=== PATIENT | male | born 1950 | race African-American/Black ===

== ENCOUNTER 2018-08-27 09:34 | Emergency (ER) | payer OTHER ==
[2018-08-27 10:49] LABS: Absolute Lymphocytes (CBC) 1.6 K/uL (0.7-4.9); Absolute Monocytes 0.5 K/uL (0.1-1.3); Absolute Neutrophil 3.7 K/uL (1.8-8.0); Basophils % 0.6 % (0-1.3); Eosinophils % 1.1 % (0-4.4); Hematocrit 36.4 % (39.6-49.0); Lymphocytes % 27.4 % (15.3-44.8); MPV 8.8 fL (7.6-11.3); Monocytes % 8.4 % (3.3-12.3); RBC Red Blood Cell Count 4.24 M/uL (4.33-5.43)
[2018-08-27 10:51] LABS: Protime INR 1.23
--- NOTE | 2018-08-27 10:57 | RAD REPORT ---
EXAM DESCRIPTION: RAD - Chest Single View - 08/27/2018 10:52 am CLINICAL HISTORY: Cough;SOB Chest pain. COMPARISON: No comparisons FINDINGS: Portable technique limits examination quality. Mild interstitial pulmonary edema seen. The heart is mildly enlarged in size with a single lead pacer /defibrillator device present. Sternotomy wires are present. IMPRESSION: Mild CHF versus volume overload pattern.
[2018-08-27 11:34] LABS: Bilirubin Direct 0.2 mg/dL (0-0.2); Bilirubin Total 0.5 mg/dL (0.2-1.0); Magnesium 1.8 mg/dL (1.8-2.4); Potassium 3.8 mmol/L (3.5-5.1); Protein, Total 6.7 g/dL (6.4-8.2); Troponin (Emerg Dept Use Only) 0.04 ng/mL (0.0-0.045)
[2018-08-27] MEDS ORDERED: FUROSEMIDE 40 MG/4 ML VIAL ONE (12:03)
--- NOTE | 2018-08-27 12:57 | ER ---
Nurse's Notes [facility] Name: Shaun Yan Age: 68 yrs Sex: Male : 1950 Arrival Date: 08/27/2018 Time: 09:37 Bed 13 Private MD: None, None Diagnosis: Acute combined systolic (congestive) and diastolic (congestive) heart failure Presentation: 08/27 09:57 Presenting complaint: Patient states: dryc, hacking cough and shortness of breath x 2 ss weeks. Denies fever. Transition of care: patient was not received from another setting of care. Onset of symptoms was August 13, 2018. Risk Assessment: Do you want to hurt yourself or someone else? Patient reports no desire to harm self or others. Initial Sepsis Screen: Does the patient meet any 2 criteria? No. Patient's initial sepsis screen is negative. Does the patient have a suspected source of infection? No. Patient's initial sepsis screen is negative. Care prior to arrival: None. 09:57 Method Of Arrival: Ambulatory ss 09:57 Acuity: CUATE 3 ss Triage Assessment: 10:04 General: Appears in no apparent distress. Behavior is calm. Respiratory: Onset: The tw2 symptoms/episode began/occurred 2 weeks, the patient has mild shortness of breath. Respiratory: Airway is patent. Historical: - Allergies: 10:01 No Known Allergies; ss - PMHx: 10:01 CAD; COPD; Hypertension; PE; ss - PSHx: 10:01 L knee repair; quadruple bypass; ss - Immunization history:: Adult Immunizations up to date. - Social history:: Smoking status: Patient/guardian denies using tobacco. - Ebola Screening: : Patient denies exposure to infectious person Patient denies travel to an Ebola-affected area in the 21 days before illness onset. Screenin:02 Abuse screen: Denies threats or abuse. Nutritional screening: No deficits noted. tw2 Tuberculosis screening: No symptoms or risk factors identified. Fall Risk Secondary diagnosis (15 points) impaired mobility. Assessment: 10:03 Pain: Denies pain. Neuro: Level of Consciousness is awake, alert, obeys commands, tw2 Oriented to person, place, time, situation. Cardiovascular: Rhythm is regular. Cardiovascular: Heart tones S1 S2 Patient's skin is warm and dry. Respiratory: Reports cough that is non-productive, dry, Airway is patent Respiratory effort is even, unlabored, Respiratory pattern is regular, symmetrical, Breath sounds are clear. GI: No signs and/or symptoms were reported involving the gastrointestinal system. : No signs and/or symptoms were reported regarding the genitourinary system. EENT: Reports nasal congestion nasal discharge. Derm: No signs and/or symptoms reported regarding the dermatologic system. Musculoskeletal: Range of motion: intact in all extremities. 10:30 Reassessment: Patient appears in no apparent distress at this time. No changes from tw2 previously documented assessment. Patient and/or family updated on plan of care and expected duration. Pain level reassessed. Patient is alert, oriented x 3, equal unlabored respirations, skin warm/dry/pink. 11:49 Reassessment: Patient appears in no apparent distress at this time. No changes from tw2 previously documented assessment. Patient and/or family updated on plan of care and expected duration. Pain level reassessed. Patient is alert, oriented x 3, equal unlabored respirations, skin warm/dry/pink. 13:15 Reassessment: Patient appears in no apparent distress at this time. No changes from tw2 previously documented assessment. Patient and/or family updated on plan of care and expected duration. Pain level reassessed. Patient is alert, oriented x 3, equal unlabored respirations, skin warm/dry/pink. Vital Signs: 10:01 BP 148 / 105; Pulse 79; Resp 22; Temp 97.4(TE); Pulse Ox 100% on R/A; Weight 84.37 kg; Height 73 in. (185.42 cm); Pain 0/10; 10:23 BP 135 / 106; Pulse 75; Resp 18; Temp 98.9(O); Pulse Ox 100% on R/A; Pain 0/10; tw2 11:49 BP 135 / 107; Pulse 75; Resp 17; Pulse Ox 99% on R/A; tw2 12:30 BP 132 / 104; Pulse 76; Resp 17; Pulse Ox 100% on R/A; tw2 13:16 BP 125 / 92; Pulse 74; Resp 17; Pulse Ox 98% on R/A; tw2 10:01 Body Mass Index 24.54 (84.37 kg, 185.42 cm) ED Course: 09:37 Patient arrived in ED. dl4 09:37 None, None is Private Physician. dl4 09:40 Bed in low position. Call light in reach. hay stacker on. Pulse ox on. NIBP on. tw2 09:51 Susan Longoria, RN is Primary Nurse. tw2 09:57 Curtis Da Silva NP is PHCP. pm1 09:57 Gutierrez Sun MD is Attending Physician. pm1 09:59 Triage completed. ss 10:02 Arm band placed on. tw2 10:33 Inserted saline lock: 20 gauge in right forearm, using aseptic technique. pc1 10:34 EKG done, by land survey technician. reviewed by Curtis Da Silva NP. at1 10:51 X-ray completed. Portable x-ray completed in exam room. Patient tolerated procedure jb2 well. 10:52 XRAY Chest (1 view) In Process Unspecified. EDMS 13:15 No provider procedures requiring assistance completed. IV discontinued, intact, tw2 bleeding controlled, No redness/swelling at site. Pressure dressing applied. Administered Medications: 11:54 Drug: Lasix 40 mg Route: IVP; Site: right forearm; tw2 13:16 Follow up: Response: No adverse reaction tw2 13:11 Drug: Tussionex Pennkinetic ER 5 ml Route: PO; tw2 13:16 Follow up: Response: No adverse reaction tw2 Outcome: 12:56 Discharge ordered by . pm1 13:15 Discharged to home ambulatory, with family. tw2 13:15 Condition: stable 13:15 Discharge instructions given to patient, family, Instructed on discharge instructions, follow up and referral plans. medication usage, Demonstrated understanding of instructions, follow-up care, medications, Prescriptions given X 1. 13:17 Patient left the ED. tw2 Signatures: Dispatcher [employer] EDME Franck Yeung jb2 Shelbie Cross RN RN ss Domenica Alegria, store protection specialist EKG Tat1 Curtis Da Silva, LANA PARTS CONTROL CLERK pm1 Susan Longoria RN RN tw2 Popeye Jackson dl4 Curtis Burns pc1 Corrections: (The following items were deleted from the chart) 10:23 10:03 EENT: No signs and/or symptoms were reported regarding the EENT system. tw2 tw2
--- NOTE | 2018-08-27 12:57 | EDPHYS ---
Physician Documentation [facility] Name: Shaun Yan Age: 68 yrs Sex: Male : 1950 Arrival Date: 08/27/2018 Time: 09:37 Bed 13 Private MD: None, None ED Physician Gutierrez Sun HPI: 08/27 10:30 This 68 yrs old Black Male presents to ER via Ambulatory with complaints of Cough, pm1 Breathing Difficulty. 10:30 The patient or guardian reports cough, with no sputum. Onset: The symptoms/episode pm1 began/occurred 2 week(s) ago. Severity of symptoms: in the emergency department the symptoms are unchanged. Modifying factors: The symptoms are alleviated by nothing, the symptoms are aggravated by nothing. Associated signs and symptoms: Pertinent positives: rhinorrhea, sinus congestion and post nasal drainage , Pertinent negatives: chest pain, diarrhea, fever, vomiting. The patient has not recently seen a physician, and does not have an established primary care provider, just moved to [facility], plans to see Dr. Baeza next week. Historical: - Allergies: 10:01 No Known Allergies; ss - PMHx: 10:01 CAD; COPD; Hypertension; PE; ss - PSHx: 10:01 L knee repair; quadruple bypass; ss - Immunization history:: Adult Immunizations up to date. - Social history:: Smoking status: Patient/guardian denies using tobacco. - Ebola Screening: : Patient denies exposure to infectious person Patient denies travel to an Ebola-affected area in the 21 days before illness onset. ROS: 10:30 Constitutional: Negative for fever, chills, and weight loss, Eyes: Negative for injury, pm1 pain, redness, and discharge, ENT: Negative for injury, pain, and discharge, Neck: Negative for injury, pain, and swelling, Cardiovascular: Negative for chest pain, palpitations, and edema, Abdomen/GI: Negative for abdominal pain, nausea, vomiting, diarrhea, and constipation. 10:30 Back: Negative for injury and pain, : Negative for injury, bleeding, discharge, and swelling, MS/Extremity: Negative for injury and deformity, Skin: Negative for injury, rash, and discoloration, Neuro: Negative for headache, weakness, numbness, tingling, and seizure. 10:30 Respiratory: Positive for cough, with no reported sputum, shortness of breath, Negative for wheezing. Exam: 10:30 Constitutional: This is a well developed, well nourished patient who is awake, alert, pm1 and in no acute distress. Head/Face: Normocephalic, atraumatic. Eyes: Pupils equal round and reactive to light, extra-ocular motions intact. Lids and lashes normal. Conjunctiva and sclera are non-icteric and not injected. Cornea within normal limits. Periorbital areas with no swelling, redness, or edema. ENT: Nares patent. No nasal discharge, no septal abnormalities noted. Tympanic membranes are normal and external auditory canals are clear. Oropharynx with no redness, swelling, or masses, exudates, or evidence of obstruction, uvula midline. Mucous membranes moist. Neck: Trachea midline, no thyromegaly or masses palpated, and no cervical lymphadenopathy. Supple, full range of motion without nuchal rigidity, or vertebral point tenderness. No Meningismus. Chest/axilla: Normal chest wall appearance and motion. Nontender with no deformity. No lesions are appreciated. Cardiovascular: Regular rate and rhythm with a normal S1 and S2. No gallops, murmurs, or rubs. Normal PMI, no JVD. No pulse deficits. Respiratory: Lungs have equal breath sounds bilaterally, clear to auscultation and percussion. No rales, rhonchi or wheezes noted. No increased work of breathing, no retractions or nasal flaring. Abdomen/GI: Soft, non-tender, with normal bowel sounds. No distension or tympany. No guarding or rebound. No evidence of tenderness throughout. Back: No spinal tenderness. No costovertebral tenderness. Full range of motion. Skin: Warm, dry with normal turgor. Normal color with no rashes, no lesions, and no evidence of cellulitis. MS/ Extremity: Pulses equal, no cyanosis. Neurovascular intact. Full, normal range of motion. Neuro: Awake and alert, GCS 15, oriented to person, place, time, and situation. Cranial nerves II-XII grossly intact. Motor strength 5/5 in all extremities. Sensory grossly intact. Cerebellar exam normal. Normal gait. Vital Signs: 10:01 BP 148 / 105; Pulse 79; Resp 22; Temp 97.4(TE); Pulse Ox 100% on R/A; Weight 84.37 kg; ss Height 73 in. (185.42 cm); Pain 0/10; 10:23 BP 135 / 106; Pulse 75; Resp 18; Temp 98.9(O); Pulse Ox 100% on R/A; Pain 0/10; tw2 11:49 BP 135 / 107; Pulse 75; Resp 17; Pulse Ox 99% on R/A; tw2 12:30 BP 132 / 104; Pulse 76; Resp 17; Pulse Ox 100% on R/A; tw2 13:16 BP 125 / 92; Pulse 74; Resp 17; Pulse Ox 98% on R/A; tw2 10:01 Body Mass Index 24.54 (84.37 kg, 185.42 cm) ss MDM: 09:59 Patient medically screened. pm1 12:48 Data reviewed: vital signs. Data interpreted: Pulse oximetry: on room air is 99 %. pm1 Interpretation: normal. Counseling: I had a detailed discussion with the patient and/or guardian regarding: the historical points, exam findings, and any diagnostic results supporting the discharge/admit diagnosis, lab results, radiology results, the need for outpatient follow up, to return to the emergency department if symptoms worsen or persist or if there are any questions or concerns that arise at home. 13:00 ED course: Patient without any shortness of breath after Lasix given in the ER and pm1 three times urinating. Patient instructed to double his Lasix for the next 2 days. 08/27 10:19 Order name: Basic Metabolic Panel; Complete Time: 11:36 pm1 08/27 10:19 Order name: CBC with Diff; Complete Time: 11:36 pm1 08/27 10:19 Order name: LFT's; Complete Time: 11:36 pm1 08/27 10:19 Order name: Magnesium; Complete Time: 11:36 pm1 08/27 10:19 Order name: NT PRO-BNP; Complete Time: 11:36 pm1 08/27 10:19 Order name: PT-INR; Complete Time: 11:36 pm1 08/27 10:19 Order name: Troponin (emerg Dept Use Only); Complete Time: 11:36 pm1 08/27 10:19 Order name: XRAY Chest (1 view); Complete Time: 11:36 pm1 08/27 10:19 Order name: EKG; Complete Time: 10:20 pm1 08/27 10:19 Order name: Cardiac monitoring; Complete Time: 10:24 pm1 08/27 10:19 Order name: EKG - Nurse/Tech; Complete Time: 10:24 pm1 08/27 10:19 Order name: Flu; Complete Time: 11:36 pm1 08/27 10:19 Order name: IV Saline Lock; Complete Time: 10:41 pm1 08/27 10:19 Order name: Labs collected and sent; Complete Time: 10:41 pm1 08/27 10:19 Order name: O2 Per Protocol; Complete Time: 10:24 pm1 08/27 10:19 Order name: O2 Sat Monitoring; Complete Time: 10:24 pm1 Administered Medications: 11:54 Drug: Lasix 40 mg Route: IVP; Site: right forearm; tw2 13:16 Follow up: Response: No adverse reaction tw2 13:11 Drug: Tussionex Pennkinetic ER 5 ml Route: PO; tw2 13:16 Follow up: Response: No adverse reaction tw2 Disposition: 08/28 07:14 Co-signature as Attending Physician, Gutierrez Sun MD I agree with the assessment and kdr plan of care. Disposition: 08/27/18 12:56 Discharged to Home. Impression: Acute combined systolic (congestive) and diastolic (congestive) heart failure. - Condition is Stable. - Discharge Instructions: Heart Failure, Upper Respiratory Infection, Adult. - Prescriptions for Guaifenesin AC 10- 100 mg/5 mL Oral Liquid - take 10 milliliter by ORAL route every 4 hours As needed; 240 milliliter. - Medication Reconciliation Form, Thank You Letter, Antibiotic Education, Prescription Opioid Use form. - Follow up: Emergency Department; When: As needed; Reason: Worsening of condition. Follow up: Private Physician; When: 2 - 3 days; Reason: Recheck today's complaints, Continuance of care, Re-evaluation by your physician. - Problem is new. - Symptoms have improved. - Notes: Double your dose of Lasix for the next 2 days. Take Lasix 40mg in the AM and take Lasix 40mg at night for the next two days Signatures: Dispatcher [employer] [facility] Gutierrez Sun MD MD [facility] Shelbie Cross RN RN Curtis Da Silva, LANA RETROFIT INSTALLER pm1 Longoria, Susan, RN RN tw2 Corrections: (The following items were deleted from the chart) 08/27 13:17 12:56 08/27/2018 12:56 Discharged to Home. Impression: Acute combined systolic tw2 (congestive) and diastolic (congestive) heart failure. Condition is Stable. Forms are Medication Reconciliation Form, Thank You Letter, Antibiotic Education, Prescription Opioid Use. Follow up: Emergency Department; When: As needed; Reason: Worsening of condition. Follow up: Private Physician; When: 2 - 3 days; Reason: Recheck today's complaints, Continuance of care, Re-evaluation by your physician. Problem is new. Symptoms have improved. pm1
[2018-08-27] MEDS ORDERED: HYDROCODONE/CHLORPHEN 5 ML/OSYR ONE (13:22)
== END 2018-08-27 13:17 | disposition home or self-care (01) ==
LOC: ER 09:34
DX: I50.41 Acute combined systolic (congestive) and diastolic (congestive) heart failure (principal); I25.10 Atherosclerotic heart disease of native coronary artery without angina pectoris; I10 Essential (primary) hypertension; J44.9 Chronic obstructive pulmonary disease, unspecified; Z86.711 Personal history of pulmonary embolism
CPT/HCPCS: 93005; 85025; 80048; 36415; 83735; 85610; 80076; 84484; 83880; 87804 ×2; 71045; 96374; 99284; J1940

== ENCOUNTER 2019-03-08 16:41 | Emergency (ER) | payer OTHER ==
[2019-03-08 18:57] LABS: Absolute Lymphocytes (CBC) 1.5 K/uL (0.7-4.9); Basophils % 0.6 % (0-1.3); Hematocrit 36.4 % (39.6-49.0); RBC Red Blood Cell Count 4.11 M/uL (4.33-5.43)
[2019-03-08 19:04] LABS: Protime INR 1.19
[2019-03-08 19:17] LABS: Potassium 3.9 mmol/L (3.5-5.1)
[2019-03-08 19:18] LABS: Albumin 3.4 g/dL (3.4-5.0); Bilirubin Direct 0.3 mg/dL (0-0.2); Magnesium 1.6 mg/dL (1.8-2.4); Protein, Total 6.6 g/dL (6.4-8.2); Troponin (Emerg Dept Use Only) 0.03 ng/mL (0.0-0.045)
[2019-03-08] MEDS ORDERED: NA CHLORIDE 0.9% 1,000 ML ONE (19:32)
--- NOTE | 2019-03-08 19:52 | RAD REPORT ---
EXAM DESCRIPTION: RAD - Chest Single View - 03/08/2019 7:39 pm CLINICAL HISTORY: Cough and congestion, coronary artery disease, COPD and hypertension COMPARISON: August 2018 TECHNIQUE: AP portable chest image was obtained 1929 hours . FINDINGS: No peripheral mass or consolidation. Cardiomegaly is present similar to comparison. Defibr illator is in place. Upper lobe vasculature is mildly prominent. No measurable pleural effusion and n o pneumothorax. No acute bony abnormality seen. No acute aortic findings suspected. IMPRESSION: No acute lung parenchymal process seen. Cardiomegaly similar to comparison. No significant failure or volume overload findings.
--- NOTE | 2019-03-08 20:43 | RAD REPORT ---
EXAM DESCRIPTION: CT - Chest For Pe Angio - 03/08/2019 8:31 pm CLINICAL HISTORY: COUGH hemoptysis, COPD, hypertension, history of PE COMPARISON: Chest films same date TECHNIQUE: Dynamically enhanced 3 mm thick images of the chest were obtained during administration o f approximately 150mL Isovue 370 IV contrast. Coronal and oblique MIP reconstruction images were gene rated and reviewed. Exam utilizes a protocol to evaluate the pulmonary arterial tree. All CT scans are performed using dose optimization technique as appropriate and may include automated exposure control or mA/KV adjustment according to patient size. FINDINGS: No pulmonary emboli are identified. The aorta as imaged shows no acute or suspicious finding. Cardiomegaly is present. Coronary artery ca lcifications are present. No pericardial thickening or effusion. Interstitial markings are prominent but not significantly different from prior imaging. Small bilater al pleural effusions are present. No pneumothorax or pleural based mass. No mediastinal or hilar suspicious masses. No chest wall masses or abnormal axillary lymphadenopathy. IMPRESSION: No pulmonary emboli identified. Cardiomegaly without pericardial thickening or effusion. Small bilateral pleural effusions.
--- NOTE | 2019-03-08 21:14 | ER ---
Nurse's Notes [facility] Name: Shaun Yan Age: 68 yrs Sex: Male : 1950 Arrival Date: 03/08/2019 Time: 16:47 Bed 24 Private MD: Diagnosis: Acute bronchitis Presentation: 03/08 17:09 Presenting complaint: Patient states: I have had a cough for about three days and I la1 started having some blood in my sputum, I have had a PE in the past so I am worried about that. Transition of care: patient was not received from another setting of care. Onset of symptoms was March 08, 2019. Risk Assessment: Do you want to hurt yourself or someone else? Patient reports no desire to harm self or others. Initial Sepsis Screen: Does the patient meet any 2 criteria? No. Patient's initial sepsis screen is negative. Does the patient have a suspected source of infection? No. Patient's initial sepsis screen is negative. Care prior to arrival: None. 17:09 Method Of Arrival: Ambulatory la1 17:09 Acuity: CUATE 3 la1 Historical: - Allergies: 17:10 No Known Allergies; la1 - PMHx: 17:10 CAD; COPD; Hypertension; PE; la1 - PSHx: 17:10 CABG; pacemaker/defib; la1 - Immunization history:: Adult Immunizations up to date. - Social history:: Smoking status: Patient uses tobacco products, smokes one-half pack cigarettes per day, Patient/guardian denies using alcohol, street drugs, The patient lives alone. - Ebola Screening: : No symptoms or risks identified at this time. - Family history:: not pertinent. - Hospitalizations: : No recent hospitalization is reported. Screenin:58 Abuse screen: Denies threats or abuse. Denies injuries from another. Nutritional rv screening: No deficits noted. Tuberculosis screening: No symptoms or risk factors identified. Fall Risk None identified. Assessment: 18:57 General: Appears in no apparent distress. comfortable, Behavior is calm, cooperative. rv Pain: Denies pain. Neuro: Level of Consciousness is awake, alert, obeys commands, Oriented to person, place, time, situation. Cardiovascular: Patient's skin is warm and dry. Respiratory: Airway is patent Parent/caregiver reports the patient having blood in sputum. GI: No signs and/or symptoms were reported involving the gastrointestinal system. : No signs and/or symptoms were reported regarding the genitourinary system. EENT: No signs and/or symptoms were reported regarding the EENT system. Derm: Skin is intact. Musculoskeletal: No signs and/or symptoms reported regarding the musculoskeletal system. 21:58 Reassessment: Patient appears in no apparent distress at this time. Patient and/or cc3 family updated on plan of care and expected duration. Pain level reassessed. Patient is alert, oriented x 3, equal unlabored respirations, skin warm/dry/pink. Dr. Pacheco discharged the patient home with prescriptions given. IV cannula removed and patient left ER vitally stable and ambulatory. No valuables left in the patient's room. Patient denies pain at this time. Patient states feeling better. Patient states symptoms have improved. Vital Signs: 17:10 BP 140 / 94; Pulse 71; Resp 16; Temp 98.6; Pulse Ox 98% on R/A; Weight 90.26 kg; Height la1 6 ft. 1 in. (185.42 cm); 18:00 BP 149 / 102; Pulse 73; Resp 19; Pulse Ox 100% on R/A; rv 19:00 Pulse 68; Resp 18; Pulse Ox 99% ; rv 21:40 BP 139 / 93; Pulse 75; Resp 17 S; Pulse Ox 98% on R/A; Pain 0/10; cc3 17:10 Body Mass Index 26.25 (90.26 kg, 185.42 cm) la1 ED Course: 16:47 Patient arrived in ED. am2 17:10 Triage completed. la1 17:10 Arm band placed on right wrist. la1 18:15 Brent Pacheco MD is Attending Physician. ma2 18:24 Tim Witt RN is Primary Nurse. rv 18:29 Radiology exam delayed due to lab results not completed at this time. (BUN/Creatinine). sj 18:35 Inserted saline lock: 20 gauge in right antecubital area, using aseptic technique. rv Blood collected. 18:58 Patient has correct armband on for positive identification. Bed in low position. Call rv light in reach. Side rails up X 1. campus monitor on. Pulse ox on. NIBP on. 19:09 Radiology exam delayed due to lab results not completed at this time. (BUN/Creatinine). vm2 19:23 Radiology exam delayed due to Per Dr. Pacheco to wait on [employer] and will let us know. vm2 19:38 CT Chest For PE Angio In Process Unspecified. EDMS 19:39 Chest Single View XRAY In Process Unspecified. EDMS 22:00 No provider procedures requiring assistance completed. IV discontinued, intact, cc3 bleeding controlled, No redness/swelling at site. Pressure dressing applied. Administered Medications: 19:40 Drug: NS 0.9% 1000 ml Route: IV; Rate: 1 bolus; Site: left antecubital; rv 21:30 Follow up: Response: No adverse reaction; IV Status: Completed infusion; IV Intake: cc3 1000ml Intake: 21:30 IV: 1000ml; Total: 1000ml. cc3 Outcome: 21:13 Discharge ordered by . vt2 21:58 Patient left the ED. cc3 21:58 Discharged to home ambulatory, with friend. cc3 21:58 Condition: stable 21:58 Discharge instructions given to patient, Instructed on discharge instructions, follow up and referral plans. medication usage, Demonstrated understanding of instructions, follow-up care, medications, Prescriptions given X 4. Signatures: Dispatcher [employer] [place] Yessy James Lee, RN RN Domenica Chaney [place] 2 Brent Pacheco MD MD vt2 Tim Witt RN RN Tania Wiley cc3
--- NOTE | 2019-03-08 21:14 | EDPHYS ---
Physician Documentation [facility] Name: Shaun Yan Age: 68 yrs Sex: Male : 1950 Arrival Date: 03/08/2019 Time: 16:47 Bed 24 Private MD: ED Physician Brent Pacheco HPI: 03/08 18:53 This 68 yrs old Black Male presents to ER via Ambulatory with complaints of Cough - ma2 blood. 18:53 Onset: The symptoms/episode began/occurred gradually, 1 day(s) ago. Severity of ma2 symptoms: At their worst the symptoms were moderate, in the emergency department the symptoms are unchanged. Associated signs and symptoms: Pertinent positives: Pertinent negatives: chest pain, diarrhea, fever, rhinorrhea, sore throat, vomiting. The patient has not experienced similar symptoms in the past. Historical: - Allergies: 17:10 No Known Allergies; la1 - PMHx: 17:10 CAD; COPD; Hypertension; PE; la1 - PSHx: 17:10 CABG; pacemaker/defib; la1 - Immunization history:: Adult Immunizations up to date. - Social history:: Smoking status: Patient uses tobacco products, smokes one-half pack cigarettes per day, Patient/guardian denies using alcohol, street drugs, The patient lives alone. - Ebola Screening: : No symptoms or risks identified at this time. - Family history:: not pertinent. - Hospitalizations: : No recent hospitalization is reported. ROS: 18:53 Constitutional: Negative for fever, chills, and weight loss. ma2 18:53 All other systems are negative. Exam: 18:53 Constitutional: This is a well developed, well nourished patient who is awake, alert, ma2 and in no acute distress. ENT: Nares patent. No nasal discharge, no septal abnormalities noted. Tympanic membranes are normal and external auditory canals are clear. Oropharynx with no redness, swelling, or masses, exudates, or evidence of obstruction, uvula midline. Mucous membranes moist. Neck: Trachea midline, no thyromegaly or masses palpated, and no cervical lymphadenopathy. Supple, full range of motion without nuchal rigidity, or vertebral point tenderness. No Meningismus. Chest/axilla: Normal chest wall appearance and motion. Nontender with no deformity. No lesions are appreciated. Cardiovascular: Regular rate and rhythm with a normal S1 and S2. No gallops, murmurs, or rubs. Normal PMI, no JVD. No pulse deficits. Respiratory: Lungs have equal breath sounds bilaterally, clear to auscultation and percussion. No rales, rhonchi or wheezes noted. No increased work of breathing, no retractions or nasal flaring. Abdomen/GI: Soft, non-tender, with normal bowel sounds. No distension or tympany. No guarding or rebound. No evidence of tenderness throughout. Vital Signs: 17:10 BP 140 / 94; Pulse 71; Resp 16; Temp 98.6; Pulse Ox 98% on R/A; Weight 90.26 kg; Height la1 6 ft. 1 in. (185.42 cm); 18:00 BP 149 / 102; Pulse 73; Resp 19; Pulse Ox 100% on R/A; rv 19:00 Pulse 68; Resp 18; Pulse Ox 99% ; rv 21:40 BP 139 / 93; Pulse 75; Resp 17 S; Pulse Ox 98% on R/A; Pain 0/10; cc3 17:10 Body Mass Index 26.25 (90.26 kg, 185.42 cm) la1 MDM: 18:15 Patient medically screened. ma2 18:53 Differential Diagnosis: Bronchitis Upper Respiratory Infection Pharyngitis Viral ma2 Syndrome Pneumonia. Data reviewed: vital signs, nurses notes. Counseling: I had a detailed discussion with the patient and/or guardian regarding: the historical points, exam findings, and any diagnostic results supporting the discharge/admit diagnosis, the presence of at least one elevated blood pressure reading (>120/80) during this emergency department visit. 21:08 Counseling: I had a detailed discussion with the patient and/or guardian regarding: ma2 radiology results, the need for outpatient follow up. Response to treatment: the patient's symptoms have markedly improved after treatment. 03/08 18:27 Order name: Basic Metabolic Panel; Complete Time: 19:22 ma2 03/08 18:27 Order name: CBC with Diff ma2 03/08 18: Order name: LFT's; Complete Time: 19:22 ma2 03/08 18:27 Order name: Magnesium; Complete Time: 19:22 ma2 03/08 18:27 Order name: NT PRO-BNP; Complete Time: 19:22 ma2 30 18:27 Order name: PT-INR; Complete Time: 19:22 03/08 18:27 Order name: Troponin (emerg Dept Use Only); Complete Time: 19:22 03/08 18:27 Order name: EKG; Complete Time: 18:28 03/08 18:27 Order name: Cardiac monitoring; Complete Time: 18:56 03/08 18:27 Order name: EKG - Nurse/Tech; Complete Time: 21:51 03/08 18:27 Order name: CT Chest For PE Angio; Complete Time: 20:52 03/08 19:23 Order name: D-Dimer; Complete Time: 20:07 03/08 19:23 Order name: Chest Single View XRAY; Complete Time: 20:07 03/08 18:27 Order name: IV Saline Lock; Complete Time: 18:57 ma03/08 18:27 Order name: Labs collected and sent; Complete Time: 18:57 03/08 18:27 Order name: O2 Per Protocol; Complete Time: 18:57 03/08 18:27 Order name: O2 Sat Monitoring; Complete Time: 18:57 ma2 Administered Medications: 19:40 Drug: NS 0.9% 1000 ml Route: IV; Rate: 1 bolus; Site: left antecubital; rv 21:30 Follow up: Response: No adverse reaction; IV Status: Completed infusion; IV Intake: cc3 1000ml Disposition: 03/08/19 21:13 Discharged to Home. Impression: Acute bronchitis. - Condition is Stable. - Discharge Instructions: Acute Bronchitis, Adult. - Prescriptions for Tylenol- Codeine #3 300-30 mg Oral Tablet - take 2 tablet by ORAL route every 6 hours As needed; 30 tablet. Tessalon Perles 100 mg Oral Capsule - take 1 capsule by ORAL route every 8 hours As needed; 15 capsule. Zithromax Z- Reyes 250 mg Oral Tablet - take 1 tablet by ORAL route as directed for 5 days Day 1 - take two (2) tablets one time. Day 2, 3, 4 , 5 take one (1) tablet once daily.; 6 tablet. Medrol (Reyes) 4 mg Oral Tablets, Dose Pack - take 1 tablet by ORAL route as directed - follow package instructions; 1 packet. - Medication Reconciliation Form, Thank You Letter, Antibiotic Education, Prescription Opioid Use form. - Follow up: Private Physician; When: Tomorrow; Reason: Continuance of care. Signatures: Dispatcher [employer] Isaias Moon RN RN los1 Brent Pacheco MD MD ma2 Tim Witt RN RN Tania Wiley cc3 Corrections: (The following items were deleted from the chart) 21:58 21:13 03/08/2019 21:13 Discharged to Home. Impression: Acute bronchitis. Condition is cc3 Stable. Forms are Medication Reconciliation Form, Thank You Letter, Antibiotic Education, Prescription Opioid Use. Follow up: Private Physician; When: Tomorrow; Reason: Continuance of care. ma2
[2019-03-08 23:32] VITALS: TEMP 98.6
[2019-03-08 23:33] VITALS: BP 149/102
[2019-03-08 23:34] VITALS: O2SAT 99
--- NOTE | 2019-03-09 07:24 | EKG ---
Test Date: 2019-03-08 Test Time: 19:19:47 Lint Cleaner: RV MEASUREMENT RESULTS: Intervals: Rate: 67 [place]: 186 QRSD: 108 QT: 444 QTc: 469 [place]: P: 87 [place]: 186 QRS: 75 T: 245 INTERPRETIVE STATEMENTS: Sinus rhythm with sinus arrhythmia with occasional premature ventricular complexes Left ventricular hypertrophy with repolarization abnormality Abnormal ECG Compared to ECG 08/27/2018 10:30:01 no significant change from previous ECG Electronically Signed On 03-09-19 07:24:18 CDT by Armaan Brian
== END 2019-03-08 21:58 | disposition home or self-care (01) ==
LOC: ER 16:41
DX: J20.9 Acute bronchitis, unspecified (principal); F17.210 Nicotine dependence, cigarettes, uncomplicated
CPT/HCPCS: 96361; 93005; 85025; 80048; 36415; 83735; 85610; 85379; 80076; 84484; 83880; 71275; 71045; 96360; 99284; Q9967; J7030

== ENCOUNTER 2019-05-26 13:42 | Observation (INO) | payer OTHER ==
[2019-05-26 15:10] LABS: Protime INR 1.26
[2019-05-26 15:11] LABS: Absolute Lymphocytes (CBC) 1.5 K/uL (0.7-4.9); Basophils % 0.3 % (0-1.3); Lymphocytes % 22.2 % (15.3-44.8); MPV 9.7 fL (7.6-11.3); RBC Red Blood Cell Count 4.29 M/uL (4.33-5.43)
[2019-05-26 15:28] LABS: Magnesium 1.7 mg/dL (1.8-2.4); Potassium 3.4 mmol/L (3.5-5.1); Troponin (Emerg Dept Use Only) 0.04 ng/mL (0.0-0.045)
[2019-05-26] MEDS ORDERED: ALBUTEROL 2.5 MG/3 ML NEB SOL ONE (15:57)
[2019-05-26] MEDS ORDERED: IPRATROPIUM BROM 0.5MG/2.5ML ONE (15:58)
--- NOTE | 2019-05-26 16:07 | RAD REPORT ---
EXAM DESCRIPTION: RAD - Chest Pa And Lat (2 Views) - 05/26/2019 3:02 pm CLINICAL HISTORY: DYSPNEA COMPARISON: March 08 TECHNIQUE: PA and lateral views of the chest were obtained. FINDINGS: The lungs are normal volume. No peripheral mass or consolidation. Cardiomegaly and vascula r engorgement are again noted. Defibrillator is in place. Interstitial pattern does appear increased slightly from the comparison. Trachea is midline. No pleural effusion or pneumothorax seen. No acu te bony finding noted. No aortic abnormality. IMPRESSION: Slight increase in interstitial opacification throughout the lung gentile. Finding consistent with a mild interstitial edema or infiltrate superimposed on chronic disease. Cardiomegaly similar to comparison.
--- NOTE | 2019-05-26 16:19 | EKG ---
Test Date: 2019-05-26 Test Time: 14:34:43 Art Historian: BRITTNEY MEASUREMENT RESULTS: Intervals: Rate: 64 [place]: 170 QRSD: 106 QT: 470 QTc: 484 [place]: P: 99 [place]: 170 QRS: 71 T: -49 INTERPRETIVE STATEMENTS: Sinus rhythm with premature atrial complexes Nonspecific ST and T wave abnormality Prolonged QT Abnormal ECG Compared to ECG 03/08/2019 19:19:47 ST (T wave) deviation now present Prolonged QT interval now present Ventricular premature complex(es) no longer present Electronically Signed On 05-26-19 16:18:51 CROP ADJUSTER by Armaan Brian
--- NOTE | 2019-05-26 17:10 | EDPHYS ---
Physician Documentation [facility] Name: Shaun Yan Age: 68 yrs Sex: Male : 1950 Arrival Date: 05/26/2019 Time: 13:43 Bed 19 Private MD: ED Physician Gutierrez Sun HPI: 05/26 14:48 This 68 yrs old Black Male presents to ER via Ambulatory with complaints of Shortness kb Of Breath. 14:48 The patient has shortness of breath at rest. The patient has not experienced similar kb symptoms in the past. The patient has not recently seen a physician. 14:50 Onset: The symptoms/episode began/occurred 2 week(s) ago. Duration: The symptoms are kb continuous. The patient's shortness of breath is aggravated by exertion, is alleviated by nothing. Associated signs and symptoms: The patient has no apparent associated signs or symptoms. Severity of symptoms: At their worst the symptoms were moderate in the emergency department the symptoms are unchanged. Shortness of breath for 2 weeks that gets worse on exertion or when laying on a certain side. Denies chest pain. . Historical: - Allergies: 13:53 No Known Allergies; bp - Home Meds: 14:07 aspirin 81 mg Oral chew 1 tab once daily [Active]; Protonix 40 mg Oral TbEC 1 tab once bp daily [Active]; carvedilol 25 mg oral tab 1 tab 2 times per day [Active]; Lasix 20 mg Oral tab 1 tab once daily [Active]; cilostazol 100 mg oral tab 1 tab 2 times per day [Active]; enalapril maleate 10 mg Oral tab 1 tab once daily [Active]; clopidogrel 75 mg oral tab 1 tab once daily [Active]; atorvastatin 40 mg oral tab 1 tab once daily [Active]; 14:12 nitroglycerin 0.4 mg SL subl 1 tab every 5 minutes [Active]; bp - PMHx: 13:53 CAD; COPD; Hypertension; PE; bp - PSHx: 13:53 Heart stents; bp - Immunization history:: Adult Immunizations up to date. - Social history:: Smoking status: unknown. - Ebola Screening: : No symptoms or risks identified at this time. ROS: 14:51 Constitutional: Negative for fever, chills, and weight loss, ENT: Negative for injury, kb pain, and discharge, Neck: Negative for injury, pain, and swelling, Cardiovascular: Negative for chest pain, palpitations, and edema, Abdomen/GI: Negative for abdominal pain, nausea, vomiting, diarrhea, and constipation, Back: Negative for injury and pain, MS/Extremity: Negative for injury and deformity, Skin: Negative for injury, rash, and discoloration, Neuro: Negative for headache, weakness, numbness, tingling, and seizure. 14:51 Respiratory: Positive for shortness of breath. Exam: 14:51 Constitutional: This is a well developed, well nourished patient who is awake, alert, kb and in no acute distress. Head/Face: Normocephalic, atraumatic. Neck: Trachea midline, no thyromegaly or masses palpated, and no cervical lymphadenopathy. Supple, full range of motion without nuchal rigidity, or vertebral point tenderness. No Meningismus. Chest/axilla: Normal chest wall appearance and motion. Nontender with no deformity. No lesions are appreciated. Cardiovascular: Regular rate and rhythm with a normal S1 and S2. No gallops, murmurs, or rubs. Normal PMI, no JVD. No pulse deficits. Respiratory: Lungs have equal breath sounds bilaterally, clear to auscultation and percussion. No rales, rhonchi or wheezes noted. No increased work of breathing, no retractions or nasal flaring. Abdomen/GI: Soft, non-tender, with normal bowel sounds. No distension or tympany. No guarding or rebound. No evidence of tenderness throughout. Back: No spinal tenderness. No costovertebral tenderness. Full range of motion. Skin: Warm, dry with normal turgor. Normal color with no rashes, no lesions, and no evidence of cellulitis. MS/ Extremity: Pulses equal, no cyanosis. Neurovascular intact. Full, normal range of motion. Neuro: Awake and alert, GCS 15, oriented to person, place, time, and situation. Cranial nerves II-XII grossly intact. Motor strength 5/5 in all extremities. Sensory grossly intact. Cerebellar exam normal. Normal gait. Vital Signs: 13:51 BP 155 / 107; Pulse 85; Resp 21; Temp 97.8(O); Pulse Ox 100% on R/A; Weight 88.9 kg; dh3 Height 6 ft. 1 in. (185.42 cm); Pain 0/10; 13:53 BP 155 / 107; Pulse 85; Resp 16; Temp 97.8; Pulse Ox 100% ; Weight 88.9 kg; Height 6 bp ft. 1 in. (185.42 cm); 14:30 BP 143 / 104; Pulse 68; Resp 23; Pulse Ox 98% ; bp 15:28 BP 151 / 111; Pulse 75; Resp 20; Pulse Ox 100% ; bp 17:00 BP 151 / 113; Pulse 70; Resp 17; Pulse Ox 98% ; bp 18:00 BP 153 / 103; Pulse 72; Resp 23; Pulse Ox 99% ; bp 19:15 BP 156 / 105; Pulse 71; Resp 24; Temp 97.7; Pulse Ox 98% ; Pain 0/10; rr5 20:18 BP 154 / 93; Pulse 67; Resp 23; Pulse Ox 98% on 2 lpm NC; rr5 13:53 Body Mass Index 25.86 (88.90 kg, 185.42 cm) bp MDM: 13:44 Patient medically screened. kb 17:06 Data reviewed: vital signs, nurses notes. Data interpreted: Pulse oximetry: on room air kb is 98 %. Interpretation: normal. Counseling: I had a detailed discussion with the patient and/or guardian regarding: the historical points, exam findings, and any diagnostic results supporting the discharge/admit diagnosis, lab results, radiology results, the need for further work-up and treatment in the hospital. Physician consultation: Brandon Villarreal DO was contacted at 17:07, regarding admission, to the telemetry unit. patient's condition, and will see patient in ED, shortly. 17:07 ED course: Unable to do CT to rule out PE due to creatinine of 2.05. Will admit for VQ kb scan. 05/26 14:27 Order name: Basic Metabolic Panel; Complete Time: 15:29 kb 05/26 14:27 Order name: CBC with Diff; Complete Time: 15:14 kb 05/26 14:27 Order name: Magnesium; Complete Time: 15:29 kb 05/26 14:27 Order name: NT PRO-BNP; Complete Time: 15:29 kb 05/26 14:27 Order name: PT-INR; Complete Time: 15:16 kb 05/26 14:27 Order name: Troponin (emerg Dept Use Only); Complete Time: 15:29 kb 05/26 14:27 Order name: EKG; Complete Time: 14:28 kb 05/26 14:27 Order name: Cardiac monitoring; Complete Time: 14:29 kb 05/26 14:27 Order name: Chest Pa And Lat (2 Views) XRAY; Complete Time: 16:39 kb 05/26 14:54 Order name: D-Dimer; Complete Time: 15:29 kb 05/26 16:44 Order name: EKG; Complete Time: 16:45 kb 05/26 14:27 Order name: EKG - Nurse/Tech; Complete Time: 14:51 kb 05/26 14:27 Order name: IV Saline Lock; Complete Time: 14:51 kb 05/26 14:27 Order name: Labs collected and sent; Complete Time: 14:52 kb 05/26 14:27 Order name: O2 Per Protocol; Complete Time: 14:30 kb 05/26 14:27 Order name: O2 Sat Monitoring; Complete Time: 14:30 kb 05/26 16:44 Order name: EKG - Nurse/Tech; Complete Time: 16:58 kb Administered Medications: 15:50 Drug: DuoNeb (3:1) (2.5 mg - 0.5 mg) 3 ml Route: Nebulizer; bp 16:58 Follow up: Response: No adverse reaction; Marked relief of symptoms bp 17:30 Drug: Lasix 40 mg Route: IVP; Site: right antecubital; bp 19:15 Follow up: Response: No adverse reaction rr5 Disposition: 05/26/19 17:10 Hospitalization ordered by Brandon Villarreal for Observation. Preliminary diagnosis are Dyspnea, Unspecified combined systolic (congestive) and diastolic (congestive) heart failure, Chronic obstructive pulmonary disease, unspecified. - Bed requested for Telemetry/MedSurg (observation). - Status is Observation. rr5 - Condition is Stable. - Problem is new. - Symptoms are unchanged. UTI on Admission? No Addendum: 05/27/2019 20:54 Co-signature as Attending Physician, Gutierrez Sun MD I agree with the assessment and k dr plan of care. Signatures: Dispatcher [employer] EDMS Annalise Yan, RADHA REINOSO-Renetta Bennett Kevin, MD MD [facility] Wild Leiva RN RN Satish Garcia, RN RN rr5 Corrections: (The following items were deleted from the chart) 05/26 15:53 15:25 Chest For PE Angio+CT.RAD.HAOZ ordered. EDOK EDMS 17:08 17:08 05/26/2019 17:08 Discharged to Home. Impression: Dyspnea; Chronic kidney disease kb (CKD); Chronic obstructive pulmonary disease, unspecified; Unspecified combined systolic (congestive) and diastolic (congestive) heart failure. Condition is Stable. Forms are Medication Reconciliation Form, Thank You Letter, Antibiotic Education, Prescription Opioid Use. Follow up: Emergency Department; When: As needed; Reason: Worsening of condition. Follow up: Private Physician; When: 2 - 3 days; Reason: Recheck today's complaints, Continuance of care, Re-evaluation by your physician. kb 18:39 17:10 Hospitalization Ordered by Brandon Villarreal DO for Observation. Preliminary bd diagnosis is Dyspnea; Unspecified combined systolic (congestive) and diastolic (congestive) heart failure; Chronic obstructive pulmonary disease, unspecified. Bed requested for Telemetry/MedSurg (observation). Status is Observation. Condition is Stable. Problem is new. Symptoms are unchanged. UTI on Admission? No. kb 20:37 18:39 05/26/2019 17:10 Hospitalization Ordered by Brandon Villarreal DO for Observation. rr5 Preliminary diagnosis is Dyspnea; Unspecified combined systolic (congestive) and diastolic (congestive) heart failure; Chronic obstructive pulmonary disease, unspecified. Bed requested for Telemetry/MedSurg (observation). Status is Observation. Condition is Stable. Problem is new. Symptoms are unchanged. UTI on Admission? No. bd
--- NOTE | 2019-05-26 17:10 | ER ---
Nurse's Notes [facility] Name: Shaun Yan Age: 68 yrs Sex: Male : 1950 Arrival Date: 05/26/2019 Time: 13:43 Bed 19 Private MD: Diagnosis: Dyspnea;Unspecified combined systolic (congestive) and diastolic (congestive) heart failure;Chronic obstructive pulmonary disease, unspecified Presentation: 05/26 13:45 Presenting complaint: Patient states: EXERTIONAL SOB. Transition of care: patient was bp not received from another setting of care. Onset of symptoms is unknown. Risk Assessment: Do you want to hurt yourself or someone else? Patient reports no desire to harm self or others. Initial Sepsis Screen: Does the patient meet any 2 criteria? No. Patient's initial sepsis screen is negative. Does the patient have a suspected source of infection? No. Patient's initial sepsis screen is negative. Care prior to arrival: None. 13:45 Method Of Arrival: Ambulatory bp 13:45 Acuity: CUATE 2 bp Triage Assessment: 13:53 General: Appears in no apparent distress. comfortable, Behavior is cooperative, bp appropriate for age, anxious. Pain: Denies pain. EENT: No deficits noted. Neuro: No deficits noted. Cardiovascular: No deficits noted. Rhythm is sinus rhythm. Respiratory: Reports shortness of breath Onset: The symptoms/episode began/occurred 2 WEEKS, the patient has mild shortness of breath. GI: No signs and/or symptoms were reported involving the gastrointestinal system. : No signs and/or symptoms were reported regarding the genitourinary system. Derm: No deficits noted. Musculoskeletal: No deficits noted. Historical: - Allergies: 13:53 No Known Allergies; bp - Home Meds: 14:07 aspirin 81 mg Oral chew 1 tab once daily [Active]; Protonix 40 mg Oral TbEC 1 tab once bp daily [Active]; carvedilol 25 mg oral tab 1 tab 2 times per day [Active]; Lasix 20 mg Oral tab 1 tab once daily [Active]; cilostazol 100 mg oral tab 1 tab 2 times per day [Active]; enalapril maleate 10 mg Oral tab 1 tab once daily [Active]; clopidogrel 75 mg oral tab 1 tab once daily [Active]; atorvastatin 40 mg oral tab 1 tab once daily [Active]; 14:12 nitroglycerin 0.4 mg SL subl 1 tab every 5 minutes [Active]; bp - PMHx: 13:53 CAD; COPD; Hypertension; PE; bp - PSHx: 13:53 Heart stents; bp - Immunization history:: Adult Immunizations up to date. - Social history:: Smoking status: unknown. - Ebola Screening: : No symptoms or risks identified at this time. Screenin:56 Abuse screen: Denies threats or abuse. Denies injuries from another. Nutritional bp screening: No deficits noted. Tuberculosis screening: No symptoms or risk factors identified. Fall Risk None identified. Assessment: 13:45 General: SEE TRIAGE NOTE. Cardiovascular: Rhythm is sinus rhythm. Respiratory: Airway bp is patent Respiratory effort is even, labored, Respiratory pattern is regular, symmetrical, Breath sounds are coarse bilaterally. 14:30 Reassessment: PT TO XRAY. bp 15:26 Reassessment: CRITICAL HIGH DDIMER [id number] REPORTED TO LANA YAN. bp 17:01 Reassessment: REPEAT EKG COMPLETED. RESULTS PENDING FOR DISPO. bp 17:14 Reassessment: DR ZAIDI AT B/S. bp 18:00 Reassessment: ADMIT IN PROCESS, NO BED AT THIS TIME. bp 20:10 Reassessment: ED provider informed. ECG done and checked. hooked to oxygen via nasal rr5 cannula at 2 liter via nasal cannula. Pain: Complains of pain in right lateral anterior chest Pain does not radiate. Pain currently is 5 out of 10 on a pain scale. Quality of pain is described as tight Pain began suddenly, Is intermittent. Cardiovascular: Reports chest pain, right side. 20:18 Reassessment: Patient appears in no apparent distress at this time. Patient is alert, rr5 oriented x 3, equal unlabored respirations, skin warm/dry/pink. for transfer to medical surgical department. Patient states feeling better. Patient states symptoms have improved. Vital Signs: 13:51 BP 155 / 107; Pulse 85; Resp 21; Temp 97.8(O); Pulse Ox 100% on R/A; Weight 88.9 kg; dh3 Height 6 ft. 1 in. (185.42 cm); Pain 0/10; 13:53 BP 155 / 107; Pulse 85; Resp 16; Temp 97.8; Pulse Ox 100% ; Weight 88.9 kg; Height 6 bp ft. 1 in. (185.42 cm); 14:30 BP 143 / 104; Pulse 68; Resp 23; Pulse Ox 98% ; bp 15:28 BP 151 / 111; Pulse 75; Resp 20; Pulse Ox 100% ; bp 17:00 BP 151 / 113; Pulse 70; Resp 17; Pulse Ox 98% ; bp 18:00 BP 153 / 103; Pulse 72; Resp 23; Pulse Ox 99% ; bp 19:15 BP 156 / 105; Pulse 71; Resp 24; Temp 97.7; Pulse Ox 98% ; Pain 0/10; rr5 20:18 BP 154 / 93; Pulse 67; Resp 23; Pulse Ox 98% on 2 lpm NC; rr5 13:53 Body Mass Index 25.86 (88.90 kg, 185.42 cm) bp ED Course: 13:43 Patient arrived in ED. as 13:44 Annalise Yan [facility]C [facility]. kb 13:44 Gutierrez Sun MD is Attending Physician. kb 13:48 Wild Leiva, YAQUELIN is Primary Nurse. bp 13:52 Triage completed. bp 13:53 Arm band placed on. bp 13:56 Patient has correct armband on for positive identification. Bed in low position. Call bp light in reach. Side rails up X2. 14:44 Initial lab(s) drawn, by me, sent to lab. Inserted saline lock: 22 gauge in right dh3 antecubital area, using aseptic technique. Blood collected. 15:10 Chest Pa And Lat (2 Views) XRAY In Process Unspecified. EDMS 17:08 Brandon Zaidi DO is Hospitalizing Provider. kb 19:52 No provider procedures requiring assistance completed. Patient admitted, IV remains in rr5 place. intact, No redness/swelling at site. Administered Medications: 15:50 Drug: DuoNeb (3:1) (2.5 mg - 0.5 mg) 3 ml Route: Nebulizer; bp 16:58 Follow up: Response: No adverse reaction; Marked relief of symptoms bp 17:30 Drug: Lasix 40 mg Route: IVP; Site: right antecubital; bp 19:15 Follow up: Response: No adverse reaction rr5 Output: 19:54 Urine: 800ml (Voided); Total: 800ml. rr5 Outcome: 17:08 Discharge ordered by . kb 17:10 Decision to Hospitalize by Provider. kb 19:52 Admitted to Med/surg accompanied by tech, via wheelchair, room 214, with chart, Report rr5 called to [facility] 19:52 Condition: stable 19:52 Instructed on the need for admit. 20:37 Patient left the ED. rr5 Signatures: Dispatcher [employer] EDMS Annalise Yan, ARLETH-Chen REINOSO-Maggei Esipnosa, [place] [address] Wild Leiva, RN RN Satish Garcia, YAQUELIN RN rr5
[2019-05-26] MEDS ORDERED: FUROSEMIDE 40 MG/4 ML VIAL ONE (17:34)
--- NOTE | 2019-05-26 17:36 | P.HP ---
Certification for Inpatient Patient admitted to: Observation With expected LOS: <2 Midnights Patient will require the following post-hospital care: None Practitioner: I am a practitioner with admitting privileges, knowledge of patient current condition, hospital course, and medical plan of care. Services: Services provided to patient in accordance with Admission requirements found in Title 42 Section 412.3 of the Code of Federal Regulations Patient History Date of Service: 05/26/19 Primary Care Provider: none; Cardiology-Dr. Lopze([place]) Reason for admission: Shortness of breath History of Present Illness: 68-year-old male presented to the emergency room with shortness of breath. Patient with history of COPD, CHF, CAD with prior CABG, hypertension, hyperlipidemia, tobacco abuse and history of pulmonary embolism. Patient reported shortness of breath over the last 2 weeks. It been getting worse. He was associated with some cough and night sweats. He denies fever, chills, nausea or vomiting. No palpitations noted. He has reported some edema to the lower extremity. He gets most of his care in [place] by his drivers' cash clerk. He visits with him every 3-6 months. He reports that sometimes he does take extra Lasix as recommended. In the ER patient was evaluated. White count 7.0, hemoglobin 12.5. Platelet count 152. Sodium 144, potassium 3.4, BUN of 16, creatinine 2.05 with a GFR 39. Magnesium 1.7. BNP elevated D-dimer also elevated. Chest x-ray showed pulmonary edema likely related to CHF. Due to nature of his symptoms the patient was admitted for further evaluation. When I saw the patient in the ER, the patient appeared stable. Patient had been given 40 mg of IV Lasix. Patient in no acute distress at this time. Vital signs stable. Home medications list reviewed: Yes - Past Medical/Surgical History Diabetic: No -: Hypertension -: Hyperlipidemia -: CAD with prior CABG x4 vessel -: CHF -: Tobacco abuse -: COPD -: Cardiac stents x3 -: CABG x4 vessel -: Left knee surgery Psychosocial/ Personal History: Patient is single. He recently moved back to the area. - Family History Family History: Reviewed- Non-Contributory - Social History Smoking Status: Former smoker Counseled patient to stop smoking for: less than 10 minutes Smoking therapy provided: Yes Patient receptive to therapy: Yes Alcohol use: No CD- Drugs: No Caffeine use: Yes Place of Residence: Home Review of Systems General: Sweats, As per HPI Eyes: Unremarkable ENT: Unremarkable Respiratory: Cough, Shortness of Breath, As per HPI Cardiovascular: Edema, As per HPI Gastrointestinal: Unremarkable Genitourinary: Unremarkable Musculoskeletal: Pedal edema, As per HPI Integumentary: Unremarkable Neurological: Unremarkable Lymphatics: Unremarkable Physical Examination - Physical Exam General: Alert, In no apparent distress, Oriented x3, Cooperative HEENT: Atraumatic, Normocephalic, PERRLA, Mucous membr. moist/pink Neck: Supple, No Thyromegaly Respiratory: Diminished (Slight diminished to the bases) Cardiovascular: Normal pulses, Regular rate/rhythm Gastrointestinal: Normal bowel sounds, Soft and benign, Non-distended, No ascites, No tenderness, No masses, No rebound, No guarding Musculoskeletal: No erythema, No tenderness, No warmth Integumentary: Tenderness/swelling ( 1+ pitting edema to the lower extremities bilateral) Neurological: Normal speech, Normal strength at 5/5 x4 extr, Normal tone, Normal affect - Studies Laboratory Data (last 24 hrs) 05/26/19 14:44: PT 14.7 H, INR 1.26 05/26/19 14:44: WBC 7.0, Hgb 12.5 L, Hct 38.0 L, Plt Count 152 05/26/19 14:44: Sodium 144, Potassium 3.4 L, BUN 16, Creatinine 2.05 H, Glucose 94, Magnesium 1.7 L Assessment and Plan - Plan Impression: Shortness of breath and edema to the lower extremities secondary to acute on chronic suspected systolic CHF Hypertension CAD with prior CABG x3 vessel Hyperlipidemia COPD Former tobacco use History of pulmonary embolism Plan: Shortness of breath and edema to the lower extremities secondary to acute on chronic suspected systolic CHF: Patient with admitted for further evaluation and treatment. Will continue monitor telemetry and cardiac enzymes. Will obtain echocardiogram to evaluate for systolic CHF. Will continue with IV Lasix 40 mg twice daily. Will continue with a 1500 cc per day fluid restriction. Cardiology has been consulted for further recommendation. Due to elevated D-dimer are patient will have a V/Q scan to rule out pulmonary embolism. Continue home medication. Will provide DVT prophylaxis-Lovenox. Anticipate discharge tomorrow if clinically improved and workup unremarkable. Hypertension: Restart home medication of carvedilol 25 mg 1 pill twice daily and enalapril 10 mg daily. CAD with prior CABG x3 vessel: Continue with home medication of aspirin 81 mg daily and Plavix 75 mg daily. Will continue to monitor cardiac enzymes. Obtain echocardiogram. Hyperlipidemia: Will check fasting lipid panel. Will continue with Lipitor 40 mg daily. COPD: Will provide COPD medication. Patient may require medication at discharge. Former tobacco use: Tobacco cessation addressed in detail. Patient plans to quit on his own. He does not require nicotine patch. History of pulmonary embolism: Patient treated for pulmonary embolism 5 years ago. D-dimer was elevated upon evaluation in the emergency room. Will obtain V /Q scan to rule out pulmonary embolism. Discharge Plan: Home Plan to discharge in: 24 Hours - Advance Directives Does patient have a Living Will: No Does patient have a Durable POA for Healthcare: No - Code Status/Comfort Care Code Status Assessed: Yes (Patient is full code) Time Spent Managing Pts Care (In Minutes): 55
[2019-05-26 20:41] VITALS: BMI 25.6
[2019-05-26] MEDS: DULERA 200/5 (MOMETASONE/FORMOTEROL) INHALER IH SCH (20:52)
[2019-05-26] MEDS ORDERED: IPRATROPIUM BROM 0.5MG/2.5ML NEB PRN (21:03)
[2019-05-26] MEDS ORDERED: ATORVASTATIN 40 MG TAB PO SCH (21:03)
[2019-05-26] MEDS ORDERED: ALBUTEROL 2.5 MG/3 ML NEB SOL NEB PRN (21:03)
[2019-05-26] MEDS ORDERED: ONDANSETRON 4 MG/2 ML VIAL IV PRN (21:03)
[2019-05-26] MEDS ORDERED: NITROGLYCERIN 0.4 MG/TAB SL PRN (21:03)
[2019-05-26] MEDS ORDERED: ACETAMINOPHEN 500 MG TAB PO PRN (21:03)
[2019-05-26] MEDS: cilostazoL 100 MG TAB PO SCH (21:56)
[2019-05-26] MEDS: carvediloL 25 MG TAB PO SCH (21:56)
[2019-05-26 23:24] LABS: CKMB Creatine Kinase MB 1.3 ng/mL (0.3-3.6); Troponin I 0.04 ng/mL (0.0-0.045)
[2019-05-27 05:15] LABS: Absolute Lymphocytes (CBC) 1.6 K/uL (0.7-4.9); Basophils % 0.5 % (0-1.3); Hematocrit 31.2 % (39.6-49.0); Lymphocytes % 23.2 % (15.3-44.8); MPV 9.4 fL (7.6-11.3); RBC Red Blood Cell Count 3.59 M/uL (4.33-5.43)
[2019-05-27 05:22] LABS: BUN Blood Urea Nitrogen 19 mg/dL (7-18); Bicarbonate 35 mmol/L (21-32); CKMB Creatine Kinase MB < 1.0 ng/mL (0.3-3.6); Creatine Phosphokinase 149 U/L (39-308); Glucose Level 87 mg/dL (74-106); HDL Cholesterol 34 mg/dL (40-60); LDL Cholesterol, Calculated 42 (<130); Magnesium 1.6 mg/dL (1.8-2.4); Potassium 3.3 mmol/L (3.5-5.1); Sodium Level 144 mmol/L (136-145); Thyroid Stimulating Hormone 0.929 uIU/mL (0.360-3.740); Troponin I 0.03 ng/mL (0.0-0.045)
[2019-05-27] MEDS ORDERED: MAGNESIUM SULFATE 1 gm IVPB 1 GM/100 ML BAG IV ONE (05:24)
[2019-05-27] MEDS: carvediloL 25 MG TAB PO SCH (06:52)
--- NOTE | 2019-05-27 08:21 | RAD REPORT ---
EXAM DESCRIPTION: NM - Vent Perfusion VQ Scan - 05/27/2019 6:29 am CLINICAL HISTORY: Shortness of breath COMPARISON: Chest x-ray May 27, 2019 TECHNIQUE: 20.1 Mci [id number] was administered by inhalation. First breath, equilibrium, and washout images of the lungs obtained 7.2 millicuries Technetium-99 MAA was administered intravenously. Anterior, posterior, lateral and ob lique views of the lungs were taken. FINDINGS: The lungs demonstrate relatively homogeneous radiotracer activity on ventilation and perfu marty sequences. No mismatched segmental or lobar perfusion defects are seen. IMPRESSION: No evidence of a pulmonary embolus
--- NOTE | 2019-05-27 08:23 | RAD REPORT ---
EXAM DESCRIPTION: Jose Benitez And Lat (2 Views)05/27/2019 6:33 am CLINICAL HISTORY: Chest pain COMPARISON: May 26, 2019 FINDINGS: Partial resolution mild bilateral pulmonary opacities. The heart is mildly enlarged. Postsurgical changes involve the chest. Pacemaker lead in place. Small pleural effusions IMPRESSION: Improvement in mild CHF
[2019-05-27] MEDS: cilostazoL 100 MG TAB PO SCH (08:30)
[2019-05-27] MEDS: DULERA 200/5 (MOMETASONE/FORMOTEROL) INHALER IH SCH (08:35)
[2019-05-27 08:45] VITALS: O2SAT 98
[2019-05-27] MEDS ORDERED: FUROSEMIDE 40 MG/4 ML VIAL IV SCH (09:00)
[2019-05-27] MEDS ORDERED: POTASSIUM CL SA 10 MEQ TAB PO ONE (09:00)
[2019-05-27] MEDS ORDERED: ENALAPRIL 10 MG TAB PO SCH (09:00)
[2019-05-27] MEDS ORDERED: ENOXAPARIN 40 MG/0.4 ML SQ SCH (09:00)
[2019-05-27] MEDS ORDERED: CLOPIDOGREL 75 MG TABLET PO SCH (09:00)
[2019-05-27] MEDS ORDERED: ASPIRIN EC 81 MG TAB PO SCH (09:00)
[2019-05-27] MEDS ORDERED: FUROSEMIDE 20 MG TABLET PO SCH (09:00)
--- NOTE | 2019-05-27 11:17 | CON ---
Date of Consultation: 05/27/2019 Reason For Consultation: Congestive heart failure. History Of Present Illness: Mr. Yan is a 68-year-old black male, has a rather complicated past c ardiac history. He does have a history of hypertension, COPD, dyslipidemia, gastroesophageal reflux disease. Has had a history of CABG about 10 years ago. Has had severe congestive heart failure in t he past. Apparently has a defibrillator. He also has had a history of pulmonary embolus where he wa s treated with Xarelto for a year about 2-3 years ago at [facility]. He sees a education consultant, Dr. Hernandez, in [place] on a regular basis. He came in with shortness of breath, PND, orthopnea, peda l edema. No palpitation, no syncope. Denied any fever or chills. Allergies: NONE. Review of Systems: Negative. Social History: Negative. Family History: Noncontributory. Medications: At home include aspirin, inhalers, Lipitor, Coreg, Plavix, Lasix, Vasotec, and Protonix . Physical Examination: General: Today, he is in no acute distress. Vital Signs: Stable. He was afebrile. He was in a sinus rhythm with some PACs. HEENT: Negative. Neck: Supple without any bruit, lymphadenopathy, JVD, or thyromegaly. Chest: Clear to auscultation and percussion today. Cardiac: Revealed a regular rhythm and rate with some ectopy. No murmurs, gallops, or rubs. Abdomen: Benign. Extremities: Revealed trace edema. Skin: Dry and intact. Neurologic: He was nonfocal. Diagnostic Data: His creatinine was 2.30, GFR of 34. BNP was 3884. Chest x-ray showed mild CHF. E KG shows sinus rhythm with PACs. Hemoglobin was 10.8, potassium of 3.3. D-dimer was 1123. Impression And Plan: 1.Acute on chronic systolic congestive heart failure. The patient is on Lasix 40 mg intravenous b.i .d. He is improving. He is already on Coreg at home as well as Vasotec and Lasix. I would continue his present regimen. Maybe increase his Lasix dose at home from 20 daily to 40 daily or 40 b.i.d. He will need to have blood work soon to follow up on his creatinine and his potassium. I gave him my office number just in case he wants to follow up with me instead of having to drive 4-5 hours to go to [place]. I told him that we can check his defibrillator here, which he has been checking ever y 6 months. His last check was a month ago in [place] and that was normally functioning. 2.Congestive heart failure, status post automated implantable cardioverter defibrillator. 3.Chronic obstructive pulmonary disease. 4.Hypertension, well controlled. 5.History of pulmonary embolus 3 years ago after 1 year of Xarelto. He now has an elevated D-dimer. V/Q scan is pending and I agree with that. His other problems include dyslipidemia and gastroesoph ageal reflux disease, both of which are stable. From my standpoint, if the V/Q scan is negative, he can go home and I will see him in the office in the near future. Echocardiogram is pending for today . SANTIAGO/ELIUD Voice ID: [id number] Report ID: [id number]
--- NOTE | 2019-05-27 11:17 | RAD REPORT ---
EXAM DESCRIPTION: US - Renal Ultrasound-Complete - 05/27/2019 10:54 am CLINICAL HISTORY: evaluate for CRD Flank pain COMPARISON: No comparisons FINDINGS: The kidneys demonstrate increased echogenicity bilaterally. The right kidney measures 12.9 x 6.0 cm. Moderate right hydronephrosis. The left kidney measures 7.9 x 4.5 cm. No hydronephrosis, focal mass or perinephric fluid. The urinary bladder is incompletely distended without gross abnormality seen. IMPRESSION: Echogenic kidneys bilaterally compatible with medical renal disease. Moderate right hydronephrosis.
[2019-05-27 11:26] VITALS: TEMP 97.6
--- NOTE | 2019-05-27 11:54 | P.PN ---
Subjective Date of Service: 05/27/19 Primary Care Provider: none; Cardiology-Dr. Lopez([place]) Chief Complaint: Shortness of breath Subjective: Other (Patient feeling much better. No shortness of breath noted.) Physical Examination - Vital Signs Temperature: 97.6 F Blood Pressure: 120/81 Pulse: 66 Respirations: 18 Pulse Ox (%): 97 - Physical Exam General: Alert, In no apparent distress, Oriented x3, Cooperative HEENT: Atraumatic Neck: Supple Respiratory: Clear to auscultation bilaterally, Normal air movement Cardiovascular: Normal pulses, Regular rate/rhythm Gastrointestinal: Normal bowel sounds, Soft and benign, Non-distended, No tenderness, No masses, No rebound, No guarding Musculoskeletal: No erythema, No tenderness, No warmth Integumentary: No erythema, No warmth, No cyanosis Neurological: Normal speech, Normal strength at 5/5 x4 extr, Normal tone, Normal affect - Studies Laboratory Data (last 24 hrs) 05/26/19 14:44: PT 14.7 H, INR 1.26 05/26/19 14:44: WBC 7.0, Hgb 12.5 L, Hct 38.0 L, Plt Count 152 05/26/19 14:44: Sodium 144, Potassium 3.4 L, BUN 16, Creatinine 2.05 H, Glucose 94, Magnesium 1.7 L Medications List Reviewed: Yes Assessment & Plan Discharge Plan: Home Plan to discharge in: 24 Hours Physician Review Additional Text: Impression: Shortness of breath and edema to the lower extremities secondary to acute on chronic suspected systolic CHF Acute on chronic renal disease stage III Hypertension CAD with prior CABG x3 vessel with defibrillator in place Anemia likely of chronic disease Hyperlipidemia COPD Former tobacco use History of pulmonary embolism Plan: Shortness of breath and edema to the lower extremities secondary to acute on chronic suspected systolic CHF: Patient has significantly improved with diuresis. Case discussed with cardiology. Will need to adjust Lasix at discharge. V/Q scan unremarkable. Echo pending. Renal function slightly compromised. Renal ultrasound shows chronic renal disease with right hydronephrosis. Will consult nephrology for further recommendation. From a cardiac standpoint patient can be discharged home. Will discuss with nephrology to see if workup can be done as an outpatient or if the patient needs to remained hospitalized. Will continue with 1500 cc per day fluid restriction. Will change Lasix to oral. If discharge home patient can make arrangements to follow up with cardiology locally. Hypertension: Continue with carvedilol 25 mg 1 pill twice daily and enalapril 10 mg daily. CAD with prior CABG x3 vessel with defibrillator in place: Continue with home medication of aspirin 81 mg daily and Plavix 75 mg daily. Continue with above recommendation Hyperlipidemia: Continue with statin medication.. COPD: Will continue with COPD medication. Patient may require medication at discharge. Former tobacco use: Tobacco cessation addressed in detail. Patient plans to quit on his own. He does not require nicotine patch. History of pulmonary embolism: V/Q scan unremarkable. Patient treated for pulmonary embolism 5 years ago. D-dimer was elevated upon evaluation in the emergency room. Time Spent Managing Pts Care (In Minutes): 55
[2019-05-27 12:41] VITALS: BP 123/78
--- NOTE | 2019-05-27 12:43 | EKG ---
Test Date: 2019-05-26 Test Time: 20:12:10 Field Technical Assistant: RR MEASUREMENT RESULTS: Intervals: Rate: 69 GA: 176 QRSD: 110 QT: 470 QTc: 503 [place]: P: 92 GA: 176 QRS: 75 T: -21 INTERPRETIVE STATEMENTS: Sinus rhythm with marked sinus arrhythmia T wave abnormality, consider lateral ischemia Prolonged QT Abnormal ECG Compared to ECG 05/26/2019 16:55:57 Possible ischemia now present Ventricular premature complex(es) no longer present T-wave abnormality still present Electronically Signed On 05-27-19 12:41:45 STUDENT LOAN COUNSELOR by Pipe Carrillo
--- NOTE | 2019-05-27 12:44 | EKG ---
Test Date: 2019-05-26 Test Time: 16:55:57 Molding Associate: TREVIN MEASUREMENT RESULTS: Intervals: Rate: 69 [place]: 136 QRSD: 110 QT: 456 QTc: 488 [place]: P: 94 [place]: 136 QRS: 68 T: -64 INTERPRETIVE STATEMENTS: Sinus rhythm with frequent premature ventricular complexes Nonspecific T wave abnormality Prolonged QT Abnormal ECG Compared to ECG 05/26/2019 14:34:43 Ventricular premature complex(es) now present T-wave abnormality now present Atrial premature complex(es) no longer present ST (T wave) deviation no longer present Electronically Signed On 05-27-19 12:42:24 CRIPPLE CUTTER by Pipe Carrillo
--- NOTE | 2019-05-27 13:02 | RAD REPORT ---
EXAM DESCRIPTION: CT - Stone Protocol - 05/27/2019 12:50 pm CLINICAL HISTORY: Abdominal pain. COMPARISON: None. TECHNIQUE: Computed axial tomography of the abdomen pelvis was obtained without oral or IV contrast. Lack of IV and oral contrast limits evaluation of solid organs, bowel, and vessels. Coronal reformat lexis images were obtained and reviewed. All CT scans are performed using dose optimization technique as appropriate and may include automated exposure control or mA/KV adjustment according to patient size. FINDINGS: A renal calculus is not seen. An ureteral calculus is not noted. A bladder calculus is not present. Moderate right hydronephrosis is present. The right ureter is dilated to the level of the r ight common iliac artery. Right common iliac artery measures 24 millimeters. Mild stranding is presen t adjacent to the iliac artery consist consistent with fibrosis. Distal right ureter is normal calibe r. The left kidney is small. The left common iliac artery measures 21 millimeters The abdominal aorta has an AP diameter of 3.3 centimeters. Ill-defined soft tissue surrounds portions of the aorta probably fibrosis. Small to moderate right and small left pleural effusions The liver, spleen, pancreas and adrenals appear grossly normal There is no evidence of diverticulitis. The appendix appears normal IMPRESSION: Moderate right hydronephrosis. 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 Stranding adjacent to the aneurysm likely represents fibrosis. This likely obs tructs the right ureter. 3.3 centimeter abdominal aortic aneurysm with perianeurysmal fibrosis.
--- NOTE | 2019-05-27 13:58 | P.DS ---
Admission Date: 05/26/19 Discharge Date: 05/27/19 Primary Care Provider: none; Cardiology-Dr. Lopez([place]) Disposition: ROUTINE DISCHARGE Discharge Condition: GOOD Reason for Admission: Shortness of breath Consultations: Cardiology-Dr. Carrillo Nephrology-Dr. Arthur Procedures: Renal US: FINDINGS: The kidneys demonstrate increased echogenicity bilaterally. The right kidney measures 12.9 x 6.0 cm. Moderate right hydronephrosis. The left kidney measures 7.9 x 4.5 cm. No hydronephrosis, focal mass or perinephric fluid. The urinary bladder is incompletely distended without gross abnormality seen. IMPRESSION: Echogenic kidneys bilaterally compatible with medical renal disease. Moderate right hydronephrosis. CT Scan: FINDINGS: A renal calculus is not seen. An ureteral calculus is not noted. A bladder calculus is not present. Moderate right hydronephrosis is present. The right ureter is dilated to the level of the right common iliac artery. Right common iliac artery measures 24 millimeters. Mild stranding is present adjacent to the iliac artery consist consistent with fibrosis. Distal right ureter is normal caliber. The left kidney is small. The left common iliac artery measures 21 millimeters The abdominal aorta has an AP diameter of 3.3 centimeters. Ill-defined soft tissue surrounds portions of the aorta probably fibrosis. Small to moderate right and small left pleural effusions The liver, spleen, pancreas and adrenals appear grossly normal There is no evidence of diverticulitis. The appendix appears normal IMPRESSION: Moderate right hydronephrosis. 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 Stranding adjacent to the aneurysm likely represents fibrosis. This likely obstructs the right ureter. 3.3 centimeter abdominal aortic aneurysm with perianeurysmal fibrosis. V/Q scan: FINDINGS: The lungs demonstrate relatively homogeneous radiotracer activity on ventilation and perfusion sequences. No mismatched segmental or lobar perfusion defects are seen. 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 Patient with history of COPD, CHF, CAD with prior CABG, hypertension, hyperlipidemia, tobacco abuse and history of pulmonary embolism. Patient reported shortness of breath over the last 2 weeks. It been getting worse. He was associated with some cough and night sweats. He denies fever, chills, nausea or vomiting. No palpitations noted. He has reported some edema to the lower extremity. 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 He visits with him every 3-6 months. He reports that sometimes he does take extra Lasix as recommended. In the ER patient was evaluated. White count 7.0, hemoglobin 12.5. Platelet count 152. Sodium 144, potassium 3.4, BUN of 16, creatinine 2.05 with a GFR 39. Magnesium 1.7. BNP elevated D-dimer also elevated. Chest x-ray showed pulmonary edema likely related to CHF. Due to nature of his symptoms the patient was admitted for further evaluation. When I saw the patient in the ER, the patient appeared stable. Patient had been given 40 mg of IV Lasix. Patient in no acute distress at this time. Vital signs stable. Hospital Course: Patient presented with shortness of breath and edema to the lower extremities secondary to acute on chronic systolic CHF. Patient received diuretic therapy. Patient seen by Cardiology. Patient improved with diuresis. Echocardiogram obtained. Cardiology recommends no further workup at this time. Cardiology recommends to continue 1500 cc per day fluid restriction and low-salt diet. Will recommend to increase Lasix to 40 mg daily. Patient will need to monitor his weight daily. If his weight increases by more than 5 lb he is to contact his PCP or cardiology for further recommendation. Patient also had acute on chronic renal disease stage III. Renal ultrasound shows right hydronephrosis. Nephrology consulted. Nephrology recommended CT scan to further evaluate. No stone noted. Right ureter was dilated that the level of the right common iliac artery aneurysm. Stranding adjacent to the aneurysm likely represents fibrosis. This likely obstructs the right ureter. 3.3 cm abdominal aortic aneurysm with eugenia aneurysmal fibrosis noted. This is likely chronic in nature. This was further discussed with nephrology. Recommend no further use of nonsteroidal anti-inflammatories. Future medications will need to be renally dose. Recommend to recheck lab-CMP in 1-2 weeks. Recommend to follow up with Nephrology to further evaluate. Patient will likely require Urology evaluation to further address. Patient may require stenting of the ureter. Nephrology to further evaluate. Patient with hypertension. This has remained stable. Patient will continue with carvedilol 25 mg 1 pill twice daily and enalapril 10 mg daily. Patient with history of CAD with prior CABG x3 vessel with defibrillator in place. Cardiology recommends no further intervention at this time. Recommend to continue aspirin 81 mg daily and Plavix 75 mg daily. Patient may continue with nitroglycerin as needed. Recommend to establish care with Cardiology in the area to follow up his care. Patient with hyperlipidemia. At discharge she will continue with Lipitor 40 mg daily. Patient had elevated D-dimer. V/Q scan showed no pulmonary embolism. Patient with history of pulmonary embolism. No further workup needed at this time. Patient with COPD. At discharge patient will continue with albuterol 2 puffs 3 times a day as needed for shortness of breath. Will add Symbicort 2 puffs twice daily for maintenance. Patient may follow up with pulmonology to further monitor and address. As mentioned above patient has 3.3 cm abdominal aortic aneurysm with eugenia aneurysmal fibrosis. Recommend to follow up with cardiology to further address and monitor. Vital Signs/Physical Exam: Temp Pulse Resp BP Pulse Ox 97.6 F 72 18 123/78 97 05/27/19 12:40 05/27/19 12:40 05/27/19 12:40 05/27/19 12:40 05/27/19 12:40 General: Alert, In no apparent distress, Oriented x3, Cooperative HEENT: Atraumatic Neck: Supple Respiratory: Clear to auscultation bilaterally, Normal air movement Cardiovascular: Normal pulses, Regular rate/rhythm Gastrointestinal: Normal bowel sounds, Soft and benign, Non-distended Musculoskeletal: No erythema, No tenderness, No warmth Integumentary: No erythema, No warmth, No cyanosis Neurological: Normal speech, Normal strength at 5/5 x4 extr, Normal tone, Normal affect Laboratory Data at Discharge: WBC 7.1 K/uL (4.3-10.9) 05/27/19 04:18 Hgb 10.8 g/dL (13.6-17.9) L 05/27/19 04:18 Hct 31.2 % (39.6-49.0) L D 05/27/19 04:18 Plt Count 137 K/uL (152-406) L 05/27/19 04:18 PT 14.7 SECONDS (9.5-12.5) H 05/26/19 14:44 INR 1.26 05/26/19 14:44 Sodium 144 mmol/L (136-145) 05/27/19 04:18 Potassium 3.3 mmol/L (3.5-5.1) L 05/27/19 04:18 BUN 19 mg/dL (7-18) H 05/27/19 04:18 Creatinine 2.30 mg/dL (0.55-1.3) H 05/27/19 04:18 Glucose 87 mg/dL (74-106) 05/27/19 04:18 Magnesium 1.6 mg/dL (1.8-2.4) L 05/27/19 04:18 Troponin I 0.03 ng/mL (0.0-0.045) 05/27/19 04:18 Triglycerides 66 mg/dL (<150) 05/27/19 04:18 Cholesterol 89 mg/dL (<200) 05/27/19 04:18 HDL Cholesterol 34 mg/dL (40-60) L 05/27/19 04:18 Cholesterol/HDL Ratio 2.62 05/27/19 04:18 Home Medications: Aspirin [Aspirin EC 81 MG] 81 mg PO DAILY 05/26/19 Atorvastatin Calcium [Lipitor] 40 mg PO BEDTIME 05/26/19 Carvedilol [Coreg] 25 mg PO BID 05/26/19 Cilostazol 100 mg PO BID 05/26/19 Clopidogrel Bisulfate [Plavix*] 75 mg PO DAILY 05/26/19 Docusate Sodium [Stool Softener] 250 mg PO PRN PRN 05/26/19 Enalapril [Vasotec*] 10 mg PO DAILY 05/26/19 Garlic 1 cap PO DAILY 05/26/19 Nitroglycerin [Nitrostat*] 0.4 mg SL PRN PRN 05/26/19 Pantoprazole [Protonix Tab*] 40 mg PO BID 05/26/19 Vit B12/Levomefolate/Vit B6/B2 [l-Methyl-Mc Tablet] 1 cap PO DAILY 05/26/19 Albuterol Sulfate [Proair Hfa] 2 puff IH TID PRN #1 [email or web address] 05/27/19 Budesonide/Formoterol Fumarate [Symbicort 160-4.5 Mcg Inhaler] 2 puff IH BID #1 [email or web address] 05/27/19 Furosemide [Lasix] 40 mg PO DAILY #30 tab 05/27/19 New Medications: Albuterol Sulfate [Proair Hfa] 2 puff IH TID PRN #1 [email or web address] PRN Reason: Shortness Of Breath Budesonide/Formoterol Fumarate [Symbicort 160-4.5 Mcg Inhaler] 2 puff IH BID #1 [email or web address] Furosemide [Lasix] 40 mg PO DAILY #30 tab Patient Discharge Instructions: 1. Recommend a follow up with a PCP to monitor his progress and follow up this hospitalization. 2. Patient presented with shortness of breath and edema to the lower extremities secondary to acute on chronic systolic CHF. Patient received diuretic therapy. Patient seen by Cardiology. Patient improved with diuresis. Echocardiogram obtained. Cardiology recommends no further workup at this time. Cardiology recommends to continue 1500 cc per day fluid restriction and low-salt diet. Will recommend to increase Lasix to 40 mg daily. Patient will need to monitor his weight daily. If his weight increases by more than 5 lb he is to contact his PCP or cardiology for further recommendation. 3. Patient also had acute on chronic renal disease stage III. Renal ultrasound shows right hydronephrosis. Nephrology consulted. Nephrology recommended CT scan to further evaluate. No stone noted. Right ureter was dilated that the level of the right common iliac artery aneurysm. Stranding adjacent to the aneurysm likely represents fibrosis. This likely obstructs the right ureter. 3.3 cm abdominal aortic aneurysm with eugenia aneurysmal fibrosis noted. This is likely chronic in nature. This was further discussed with nephrology. Recommend no further use of nonsteroidal anti-inflammatories. Future medications will need to be renally dose. Recommend to recheck lab-CMP in 1-2 weeks. Recommend to follow up with Nephrology to further evaluate. Patient will likely require Urology evaluation to further address. Patient may require stenting of the ureter. Nephrology to further evaluate. 4. Patient with hypertension. This has remained stable. Patient will continue with carvedilol 25 mg 1 pill twice daily and enalapril 10 mg daily. 5. Patient with history of CAD with prior CABG x3 vessel with defibrillator in place. Cardiology recommends no further intervention at this time. Recommend to continue aspirin 81 mg daily and Plavix 75 mg daily. Patient may continue with nitroglycerin as needed. Recommend to establish care with Cardiology in the area to follow up his care. 6. Patient with hyperlipidemia. At discharge she will continue with Lipitor 40 mg daily. 7. Patient had elevated D-dimer. V/Q scan showed no pulmonary embolism. Patient with history of pulmonary embolism. No further workup needed at this time. 8. Patient with COPD. At discharge patient will continue with albuterol 2 puffs 3 times a day as needed for shortness of breath. Will add Symbicort 2 puffs twice daily for maintenance. Patient may follow up with pulmonology to further monitor and address. 9. As mentioned above patient has 3.3 cm abdominal aortic aneurysm with eugenia aneurysmal fibrosis. Recommend to follow up with cardiology to further address and monitor. Diet: AHA Activity: Ad rommel Time spent managing pt's care (in minutes): 55
[2019-05-27] MEDS ORDERED: TAMSULOSIN 0.4 MG SR CAP PO SCH (14:00)
--- NOTE | 2019-05-27 15:11 | ECHO ---
HEIGHT: 6 ft 1 in WEIGHT: 194 lb 6 oz DATE OF STUDY: 05/27/[address]: Brandon Villarreal DO 2-DIMENSIONAL: YES M.MODE: YES DOPPLER: YES COLOR FLOW: YES TDS: NO PORTABLE: NO DEFINITY: NO BUBBLE STUDY: NO DIAGNOSIS: CONGESTIVE HEART FAILURE CARDIAC HISTORY: CATHERIZATION: YES SURGERY: YES PROSTHETIC VALVE: NO PACEMAKER: YES MEASUREMENTS (cm) DIASTOLIC (NORMALS) SYSTOLIC (NORMALS) IVSd 1.2 (0.6-1.2) LA Diam 4.3 (1.9-4.0) LVEF 25% LVIDd 6.7 (3.5-5.7) LVIDs 5.8 (2.0-3.5) %FS 13% LVPWd 1.0 (0.6-1.2) Ao Diam 3.2 (2.0-3.7) 2 DIMENSIONAL ASSESSMENT: RIGHT ATRIUM: NORMAL LEFT ATRIUM: DILATED RIGHT VENTRICLE: PACER LEFT VENTRICLE: LEFT VENTRICULAR DILATATION TRICUSPID VALVE: NORMAL MITRAL VALVE: NORMAL PULMONIC VALVE: NORMAL AORTIC VALVE: SCLEROSIS PERICARDIAL EFFUSION: NONE AORTIC ROOT: NORMAL LEFT VENTRICULAR WALL MOTION: SEVERE DILATED CARDIOMYOPATHY. DOPPLER/COLOR FLOW: MILD TRICUSPID REGURGITATION- NORMAL RIGHT VENTRICULAR SYSTOLIC PRESSURE 36mmHg COMMENTS: SEVERE GLOBAL HYPOKINESIS. EJECTION FRACTION 20-25%. LEFT VENTRICULAR DILATATION, LEFT ATRIAL ENLARGEMENT. PACEMAKER IN RIGHT VENTRICLE. AORTIC SCLEROSIS. TECHNOLOGIST: ANTON RENEE
--- NOTE | 2019-05-28 04:12 | CON ---
Date of Consultation: 05/27/2019 Reason For Consultation: Elevated BUN and creatinine, fluid management. History Of Present Illness: This is a pleasant 68-year-old gentleman with significant past medical h istory of coronary artery disease, status post CABG, complicated with congestive heart failure, hyper tension, hyperlipidemia, COPD. Patient apparently recently moved to [facility]. Patient started having sh ortness of breath over the last few weeks with chest tightness. For that reason, reported to [facility]. In the emergency room, found to be over volume. For that reason, patient was admitted. Primary workup showed elevation in BUN and creatinine. Ultrasound showed unilateral hydronephrosis . For that reason, we have been consulted. Upon questioning the patient, patient denied any hematur ia, but has hesitancy. Patient was evaluated by Cardiology and recommended him to see engineering director, but he has never done. Patient denied taking any nonsteroidal. No IV contrast. Last contrast last year. Past Medical History: 1.Hypertension. 2.Coronary artery disease, status post CABG. 3.COPD. Past Surgical History: CABG, PTCA, left knee surgery. Social History: Ex-smoker. Denied alcohol. Denied drug abuse. Family History: Positive for hypertension. Physical Examination: Vital Signs: Blood pressure 123/78, pulse of 72. Chest: Faint crackles on the base. Heart: S1, S2. Systolic murmur. Abdomen: Soft, nontender. Extremities: No edema. Neurological: Alert and oriented x3. Nonfocal. Review of Systems: Head and Neck: No red eye. No ear pain. GI: No nausea. No vomiting. : No polyuria. No dysuria. No hematuria. PUBLIC SERVICE OFFICER: Not applicable. Respiratory: Shortness of breath. Cardiovascular: Chest tightness. Endocrine: No polydipsia. Skin: No rash. Neurologic: No weakness. Laboratory Data: WBC 7.1, H and H 8.9/31.2. Sodium 144, potassium 3.3, bicarb 35, BUN 19, creatinin e 2.3, calcium 8.1, magnesium 1.6. Assessment And Plan: 1.Acute kidney injury on chronic kidney disease secondary to nephrosclerosis superimposed with obstr uctive uropathy. The patient is going to need to follow up as outpatient with Urology. 2.Acute kidney injury secondary to cardiorenal. Patient around his baseline. We will start the pat ient on Flomax. Patient is going to need to follow up with Urology given the confirmation of the ult rasound and the CT. 3.Anemia of chronic kidney disease, stable. We will monitor. 4.Hypertension, controlled optimal. We will utilize the blood pressure for more established better volume control. We will resume Lasix. Patient cleared from the Renal. 5.Hypokalemia. We will supplement. 6.Acute kidney injury. As I mentioned, the acute component is secondary to obstruction and cardiore nal. CT stone protocol did show fibrosis. The patient is going to need a workup as outpatient with a stent placement. PERLA Voice ID: [id number] Report ID: [id number]
== END 2019-05-27 17:19 | disposition home or self-care (01) ==
LOC: ER 13:42 → ERHOLD 17:21 → 2ND 20:11
PROVIDERS: ADMIT Family Medicine; ATTEND Family Medicine
DX: I50.23 Acute on chronic systolic (congestive) heart failure (principal); I13.0 Hypertensive heart and chronic kidney disease with heart failure and stage 1 through stage 4 chronic kidney disease, or unspecified chronic kidney disease; N18.3 Chronic kidney disease, stage 3 (moderate); N17.9 Acute kidney failure, unspecified; I71.4 Abdominal aortic aneurysm, without rupture; I25.10 Atherosclerotic heart disease of native coronary artery without angina pectoris; Z95.1 Presence of aortocoronary bypass graft; Z95.810 Presence of automatic (implantable) cardiac defibrillator; D63.1 Anemia in chronic kidney disease; E78.5 Hyperlipidemia, unspecified; J44.9 Chronic obstructive pulmonary disease, unspecified; Z87.891 Personal history of nicotine dependence; Z86.711 Personal history of pulmonary embolism; N13.30 Unspecified hydronephrosis
CPT/HCPCS: 93005 ×3; 93306; 85025 ×2; 80048 ×2; 36415; 83735 ×2; 82550 ×2; 85610; 80061; 85379; 84443; 84484 ×3; 82553 ×2; 84439; 83880; 76377; 74176; 71046 ×2; 76770; 94640; 78582; 96374; 99285; J1940; J1650; J3475; A9558; A9540; G0378 ×3; J7606

== ENCOUNTER 2019-07-27 22:57 | Emergency (ER) | payer OTHER ==
--- OUTSIDE RECORDS SUMMARY | 2019-07-27 23:00 | XMS REPORT | Summary of Care ---
:1950 Author Organization [facility] [place] [address] Care Team Providers Name Role Phone Cyndee Baeza Primary Care Provider Reason for Visit Reason Comments Ureteral Obstruction Encounter Details Date Type Department Care Team Description 07/26/2019 Office Visit [facility], Marvin Joy MD Ureteral Obstruction Medicine Urology [address] 10[address], [address], [place] [phone] Allergies No Known Allergiesdocumented as of this encounter (statuses as of 07/27/2019) Medications Medication Sig Dispensed Refills Start Date End Date Status Multiple multivitamin 0 Active Vitamins-Minerals once a day (MULTIVITAMIN ADULT OR) Garlic 1000 MG CAPS garlic 1,000 mg capsule 0 Active Take 1 capsule every day by oral route. Nitroglycerin 400 nitroglycerin 400 mcg/spray translingual aerosol 0 Active MCG/SPRAY AERS PLACE 1 SPRAY (0.4 MG) BY TRANSLINGUAL ROUTE ONTO OR UNDER THE TONGUE AT THE FIRST SIGN OF AN ATTACK; NO MORE THAN 3 SPRAYS/15 MINUTE PERIOD docusate sodium docusate sodium 100 mg capsule 0 04/04/2015 Active (COLACE) 100 MG Take 1 capsule every day by oral route. capsule tramadol-acetaminoph tramadol 0 Active en (ULTRACET) prn 37.5-325 MG per tablet Potassium 75 MG TABS potassium 0 Active 20mEp per day docusate sodium Stool Softener 250 mg capsule 0 Active (STOOL SOFTENER) 250 Take 1 capsule every day by oral route as needed. MG CAPS aspirin 325 mg aspirin 325 mg tablet 0 Active tablet Take 1 tablet every day by oral route. ASPIRIN 81 OR aspirin 0 Active 81 mg per day Cobalamin B-12 Compliance 0 Active Combinations (B-12) daily 100-5000 MCG SUBL atorvastatin atorvastatin 40 mg 0 Active (LIPITOR) 40 MG tablet tablet albuterol 108 (90 albuterol sulfate HFA 90 mcg/actuation aerosol inhaler 0 Active base) mcg/act USE 2 PUFFS PO TID PRF SOB inhaler carvedilol (COREG) carvedilol 12.5 mg tablet 0 Active 12.5 MG tablet Take 1 tablet twice a day by oral route for 90 days. carvedilol (COREG) carvedilol 25 mg 0 Active 25 MG tablet tablet cilostazol (PLETAL) cilostazol 100 mg 0 Active 100 MG tablet tablet clopidogrel (PLAVIX) clopidogrel 75 mg 0 03/03/2015 Active 75 MG Tablet tablet enalapril (VASOTEC) TK 1 T PO QD UTD 0 07/05/2019 Active 10 MG tablet furosemide (LASIX) furosemide 20 mg tablet 0 03/03/2015 Active 20 MG tablet TK 1 T PO QD furosemide (LASIX) furosemide 40 mg 0 Active 40 MG tablet tablet pantoprazole pantoprazole 40 mg tablet,delayed release 0 04/04/2015 Active (PROTONIX) 40 MG TAKE ONE TABLET BY MOUTH TWICE DAILY tablet potassium chloride potassium chloride ER 20 mEq tablet,extended release(part/ cryst) 0 Active SA (K-DUR, KLOR-CON TAKE 1 TAB BY MOUTH DAILY M20) 20 MEQ tablet documented as of this encounter (statuses as of 07/27/2019) Active Problems No known active problemsdocumented as of this encounter (statuses as of 2019) Social History Tobacco Use Types Packs/Day Years Used Date Former Smoker Quit: Smokeless Tobacco: Never Used Alcohol Use Drinks/Week oz/Week Comments Yes Alcohol Habits Answer Date Recorded How often do you have a drink containing alcohol? 2-3 times a week 07/26/2019 How many drinks containing alcohol do you have on a Not asked typical day when you are drinking? How often do you have six or more drinks on one Not asked occasion? Sex Assigned at Date Recorded Not on file Job Start Date Occupation Industry Not on file Not on file Not on file Travel History Travel Start Travel End No recent travel history available. 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 HENT: Negative. Eyes: Negative. Respiratory: Negative. Cardiovascular: Negative. Gastrointestinal: Negative. Endocrine: Negative. Genitourinary: Negative. Musculoskeletal: Negative. Allergic/Immunologic: Negative. Neurological: Negative. asir , Marvin Joy MD - 07/26/2019 4:00 PM CST Shaun Yan is a 69 y.o. male referred by Moe Hayden MD for hydronephrosis. I reviewed officenotes prior to his visit. He has a history of CAD and CABG x 4 ten years ago. An ultrasound 05/27/19showed moderate right hydronephrosis. VQ scan was negative 05/27. 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 Has not seen vascular surgery as yet. 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 He was seen in the ER for a respiratory issue and this prompted some imaging which documented the hydronephrosis. He has not yet established a relationship with a audio tape librarian in [facility] but has been traveling to [place] every six monthsor so. He is in the process of establishing that relationship locally. Patient presented without imaging disk or report of his CT scan. I have only the interpretation by Dr. Hayden describing the presence of an iliac aneurysm but no quantitation or images. Mag3 renal scan 07/08/19: 22.5% left, 77.5% right. T1/2 not calculated. Past Medical History: Diagnosis Date Arthritis COPD (chronic obstructive pulmonary disease) (HCCode) Glaucoma Heart attack (HCCode) High blood pressure High cholesterol Kidney disease Past Surgical History: Procedure Laterality Date HX CORONARY ANGIOPLASTY WITH STENT PLACEMENT 2012 HX HEART SURGERY 1999 HX KNEE SURGERY Left No Known Allergies Current Outpatient Medications: albuterol 108 (90 base) mcg/act inhaler, albuterol sulfate HFA 90 mcg/ actuation aerosol inhaler USE 2 PUFFS PO TID PRF SOB, Disp: , Rfl: aspirin 325 mg tablet, aspirin 325 mg tablet Take 1 tablet every day by oral route., Disp: , Rfl: ASPIRIN 81 OR, aspirin 81 mg per day, Disp: , Rfl: atorvastatin (LIPITOR) 40 MG tablet, atorvastatin 40 mg tablet, Disp: , Rfl : carvedilol (COREG) 12.5 MG tablet, carvedilol 12.5 mg tablet Take 1 tablet twice a day by oralroute for 90 days., Disp: , Rfl: carvedilol (COREG) 25 MG tablet, carvedilol 25 mg tablet, Disp: , Rfl: cilostazol (PLETAL) 100 MG tablet, cilostazol 100 mg tablet, Disp: , Rfl: clopidogrel (PLAVIX) 75 MG Tablet, clopidogrel 75 mg tablet, Disp: , Rfl: Cobalamin Combinations (B-12) 100-5000 MCG SUBL, B-12 Compliance daily, Disp: , Rfl: docusate sodium (COLACE) 100 MG capsule, docusate sodium 100 mg capsule Take 1 capsule every day by oral route., Disp: , Rfl: docusate sodium (STOOL SOFTENER) 250 MG CAPS, Stool Softener 250 mg capsule Take 1 capsule every day by oral route as needed., Disp: , Rfl: enalapril (VASOTEC) 10 MG tablet, TK 1 T PO QD UTD, Disp: , Rfl: furosemide (LASIX) 20 MG tablet, furosemide 20 mg tablet TK 1 T PO QD, Disp: , Rfl: furosemide (LASIX) 40 MG tablet, furosemide 40 mg tablet, Disp: , Rfl: Garlic 1000 MG CAPS, garlic 1,000 mg capsule Take 1 capsule every day by oral route., Disp: , Rfl: Multiple Vitamins-Minerals (MULTIVITAMIN ADULT OR), multivitamin once a day, Disp: , Rfl: Nitroglycerin 400 MCG/SPRAY AERS, nitroglycerin 400 mcg/spray translingual aerosol PLACE 1 SPRAY (0.4 MG) BY TRANSLINGUAL ROUTE ONTO OR UNDER THE TONGUE AT THE FIRST SIGN OF AN ATTACK; NO MORE THAN 3 SPRAYS/15 MINUTE PERIOD, Disp: , Rfl: pantoprazole (PROTONIX) 40 MG tablet, pantoprazole 40 mg tablet,delayed release TAKE ONE TABLET BY MOUTH TWICE DAILY, Disp: , Rfl: Potassium 75 MG TABS, potassium 20mEp per day, Disp: , Rfl: potassium chloride SA (K-DUR, KLOR-CON M20) 20 MEQ tablet, potassium chloride ER 20 mEq tablet,extended release(part/cryst) TAKE 1 TAB BY MOUTH DAILY, Disp: , Rfl: tramadol-acetaminophen (ULTRACET) 37.5-325 MG per tablet, tramadol prn, Disp: , Rfl: Social History Tobacco Use Smoking status: Former Smoker Last attempt to quit: Years since quittin.2 Smokeless tobacco: Never Used Substance Use Topics Alcohol use: Yes Frequency: 2-3 times a week Drug use: Not on file Review of Systems Constitutional: Negative. HENT: Negative. Eyes: Negative. Respiratory: Negative. Cardiovascular: Negative. Negative for chest pain, palpitations and leg swelling. Gastrointestinal: Negative. Negative for nausea, vomiting, abdominal pain, diarrhea, constipation, blood in stool, abdominal distention, anal bleeding and rectal pain. Genitourinary: Negative for dysuria, urgency, frequency, hematuria, flank pain, decreased urine volume, penile discharge, penile swelling, scrotal swelling, enuresis, difficulty urinating, genital sore, penile pain and testicular pain. Musculoskeletal: Negative. Skin: Negative. Neurological: Negative. Hematological: Negative. Psychiatric/Behavioral: Negative. All other systems reviewed and are negative. Physical Exam Constitutional: He is oriented. He appears well-developed and well-nourished. Head: Normocephalic and atraumatic. Eyes: Pupils are equal, round, and reactive to light. Neck: Normal range of motion. Neck supple. Cardiovascular: Normal rate. Pulmonary/Chest: Effort normal and breath sounds normal. No respiratory distress. Abdominal: Soft. He exhibits no distension and no mass. No tenderness. He has no rebound and no guarding. Musculoskeletal: Normal range of motion. Neurological: He is alert and oriented. Skin: Skin is warm and dry. Psychiatric: He has a normal mood and affect. Behavior is normal. Judgment and thought content normal. A/P: 69 y.o. male with left hydronephrosis and decreased renal function of 22% potentially due to a chronic left iliac aneurysm. Without imaging results or images of his CT scan I cannot assess the size of the aneurysm or the status of his renal parenchyma. At this point, we cannot determine the next course of action until those images can be reviewed. I anticipate that he may ultimately require: 1. Vascular surgery consultation concerning management of aneurysm, suitability or need for endovascular vs. Open treatment. 2. Cardiac clearance for possible ureteral procedure. 3. Possible need for ureterolysis to address ureteral obstruction vs. Some more complicated reconstruction. Depending on status may need ureteral stent in the interval. Plan: 1. Patient to acquire images and reports for CT scan so that I can review them and make treatment plan. documented in this encounter Plan of Treatment Health Maintenance Due Date Last Done Comments COLON CANCER SCREENING: COLONOSCOPY 1950 TETANUS SHOT (ADULT) 1965 BMI FOLLOW UP PLAN 1968 HEPATITIS C SCREENING 1968 MEDICARE AWV (Initial) 03/09/2015 AAA Screen 2015 FALL SCREEN 2015 PNEUMOVAX >=65 (PPSV23) 2015 PREVNAR >=65 (PCV13) 2015 FLU VACCINE > 6 MONTHS 01/07/2019 documented as of this encounter Procedures Procedure Name Priority Date/Time Associated Diagnosis Comments POCT URINALYSIS Routine 07/26/2019 Hydronephrosis, Results for this DIPSTICK unspecified procedure are in hydronephrosis type the results Iliac artery aneurysm section. (HCCode) documented in this encounter Results POCT URINALYSIS DIPSTICK (07/26/2019) COLOR UA Yellow YELLOW/STRAW CLARITY UA Clear CLEAR GLUCOSE UA Negative NEGATIVE BILIRUBIN UA Negative NEGATIVE KETONES UA Negative NEGATIVE SPECIFIC GRAVITY UA 1.005 1.005 - 1.035 BLOOD UA Negative NEGATIVE PH UA 6.5 5 - 9 PROTEIN UA Negative NEGATIVE UROBILINOGEN UA 0.02 E.U/DL NORMAL MG/DL LEUKOCYTE ESTERASE UA Negative NEGATIVE NITRITE UA Negative NEGATIVE REDUCING SUBSTANCES URINE Specimen documented in this encounter Visit Diagnoses Diagnosis Hydronephrosis, unspecified hydronephrosis type - Primary Iliac artery aneurysm (HCCode) Aneurysm of iliac artery documented in this encounter Insurance Payer Benefit Plan / Subscriber ID Effective Dates Phone Address Type Group MEDICARE MEDICARE PART A xxxxxxxxxxx 2015-Present [address] Medicare [place] [phone] documented as of this encounter
[2019-07-27] MEDS ORDERED: IBUPROFEN 400 MG TAB ONE (23:51)
[2019-07-28] MEDS ORDERED: HYDROCODONE/CHLORPHEN 5 ML/OSYR ONE (00:59)
[2019-07-28] MEDS ORDERED: levoFLOXacin 500 MG TAB ONE (01:02)
--- NOTE | 2019-07-28 01:49 | ER ---
Nurse's Notes [facility] Name: Shaun Yan Age: 69 yrs Sex: Male : 1950 Arrival Date: 07/27/2019 Time: 23:17 Bed 15 Private MD: Diagnosis: Chronic obstructive pulmonary disease, unspecified;Fever presenting with conditions classified elsewhere Presentation: 07/27 23:24 Presenting complaint: Patient states: non-productive cough since yesterday and fever aa1 since today. Reports temp at home 103.4 but did not take any medication for it. Transition of care: patient was not received from another setting of care. Onset of symptoms was July 26, 2019. Risk Assessment: Do you want to hurt yourself or someone else? Patient reports no desire to harm self or others. Initial Sepsis Screen: Does the patient meet any 2 criteria? Temp <36.0*C (96.8*F)) or > 38.3*C (100.9*F). HR > 90 bpm. Yes Does the patient have a suspected source of infection? No. Patient's initial sepsis screen is negative. Care prior to arrival: None. 23:24 Method Of Arrival: Ambulatory aa1 23:24 Acuity: CUATE 3 aa1 Triage Assessment: 23:31 General: Appears in no apparent distress. comfortable, Behavior is calm, cooperative, aa1 appropriate for age. Pain: Denies pain. Historical: - Allergies: 23:31 No Known Allergies; aa1 - Home Meds: 23:31 atorvastatin 40 mg Oral tab 1 tab once daily [Active]; docusate sodium 250 mg Oral cap aa1 1 cap once daily [Active]; Vitamin B-12 1,000 mcg Oral tab daily [Active]; garlic oil 1,000 mg oral cap 4 times daily [Active]; enalapril maleate 10 mg Oral tab 1 tab once daily [Active]; clopidogrel 75 mg Oral tab 1 tab once daily [Active]; aspirin 81 mg Oral chew 1 tab once daily [Active]; Protonix 40 mg Oral TbEC 1 tab once daily [Active]; carvedilol 25 mg Oral tab 1 tab 2 times per day [Active]; Lasix 20 mg Oral tab 1 tab once daily [Active]; cilostazol 100 mg Oral tab 1 tab 2 times per day [Active]; nitroglycerin 0.4 mg SL subl 1 tab every 5 minutes [Active]; ProAir HFA 90 mcg/actuation inhalation HFAA as needed [Active]; - PMHx: 23:31 CAD; COPD; Hypertension; PE; Myocardial infarction; Aneurysm; around left kidney; aa1 - PSHx: 23:31 CABG; Heart stents; Knee surgery; aa1 - Immunization history:: Flu vaccine is up to date. - Coronavirus screen:: The patient has NOT traveled to [place] in the past 14 days. Proceed with normal triage process as indicated. - Social history:: Smoking status: Patient/guardian denies using tobacco, Stopped _ months ago 0.5. - Ebola Screening: : Patient denies exposure to infectious person Patient denies travel to an Ebola-affected area in the 21 days before illness onset. Assessment: 23:30 General: Appears in no apparent distress. uncomfortable, well groomed, well developed, sg well nourished, Behavior is calm, cooperative, appropriate for age. Pain: Complains of pain in body aches Quality of pain is described as aching. Neuro: Level of Consciousness is awake, alert, obeys commands, Oriented to person, place, time, Chip Frier are equal bilaterally Speech is normal, Facial symmetry appears normal. Cardiovascular: Capillary refill is brisk in bilateral fingers Patient's skin is warm and dry. Chest pain is denied. Respiratory: Airway is patent Respiratory effort is even, unlabored, Respiratory pattern is regular, symmetrical. GI: No signs and/or symptoms were reported involving the gastrointestinal system. : No signs and/or symptoms were reported regarding the genitourinary system. EENT: Nares are clear bilaterally Oral mucosa is moist. Throat is pink. Derm: Skin is intact, is healthy with good turgor, Skin is dry, Skin is normal, Skin temperature is warm. Musculoskeletal: Circulation, motion, and sensation intact. Range of motion: intact in all extremities. Vital Signs: 23:31 BP 117 / 79; Pulse 101; Resp 18; Temp 102.7(O); Pulse Ox 96% on R/A; Weight 88.9 kg; aa1 Height 6 ft. 1 in. (185.42 cm); Pain 0/10; 07/28 01:20 BP 106 / 52; Pulse 89; Resp 16; Temp 100.1; Pulse Ox 100% on R/A; sg 07/27 23:31 Body Mass Index 25.86 (88.90 kg, 185.42 cm) aa1 ED Course: 07/27 23:17 Patient arrived in ED. jg7 23:22 [facility] La[facility]C [facility] snw 23:22 Austin Urban MD is Attending Physician. snw 23:26 Triage completed. aa1 23:30 Arm band placed on. sg 23:35 Patient has correct armband on for positive identification. Placed in gown. Bed in low sg position. Side rails up X 1. Adult w/ patient. Pulse ox on. NIBP on. Warm blanket given. Head of bed elevated. 23:35 Flu and/or RSV swab sent to lab. sg 23:45 Joey Caballero, RN is Primary Nurse. sg 07/28 00:23 Chest Pa And Lat (2 Views) XRAY In Process Unspecified. EDMS 02:00 No provider procedures requiring assistance completed. Patient did not have IV access sg during this emergency room visit. Administered Medications: 00:03 Drug: Motrin 400 mg Route: PO; sg 01:00 Follow up: Response: No adverse reaction sg 00:56 Drug: Tussionex Pennkinetic ER 5 ml Route: PO; sg 01:30 Follow up: Response: No adverse reaction sg 00:58 Drug: LevaQUIN 500 mg Route: PO; sg 01:30 Follow up: Response: No adverse reaction sg Outcome: 01:48 Discharge ordered by MD. snw 02:00 Discharged to home ambulatory, with family. sg 02:00 Condition: good 02:00 Discharge instructions given to patient, family, Instructed on discharge instructions, follow up and referral plans. medication usage, safety practices, Demonstrated understanding of instructions, follow-up care, medications, Prescriptions given X 1. 02:02 Patient left the ED. sg Signatures: Dispatcher [employer] EDMS Joey Caballero RN RN Darya Lyle RN RN aa1 Samira Lares FNP-C FNP-Amina Rivera jg7 Corrections: (The following items were deleted from the chart) 02:11 07/27 12:20 Flu and/or RSV swab sent to lab. sg sg
--- NOTE | 2019-07-28 01:50 | EDPHYS ---
Physician Documentation [facility] [place], [place] [facility] Name: Shaun Yan Age: 69 yrs Sex: Male : 1950 Arrival Date: 07/27/2019 Time: 23:17 Bed 15 Private MD: ED Physician Austin Urban HPI: 07/28 00:52 This 69 yrs old Black Male presents to ER via Ambulatory with complaints of Fever, snw Cough. 00:52 The patient reports fever, that was measured at 103 degrees Fahrenheit. Onset: The snw symptoms/episode began/occurred suddenly, yesterday. Modifying factors: there are no obvious modifying factors. Associated signs and symptoms: Pertinent positives: cough. Severity of symptoms: At their worst the symptoms were moderate. It is unknown whether or not the patient has had similar symptoms in the past. The patient has not recently seen a physician. Historical: - Allergies: 07/27 23:31 No Known Allergies; aa1 - Home Meds: 23:31 atorvastatin 40 mg Oral tab 1 tab once daily [Active]; docusate sodium 250 mg Oral cap aa1 1 cap once daily [Active]; Vitamin B-12 1,000 mcg Oral tab daily [Active]; garlic oil 1,000 mg oral cap 4 times daily [Active]; enalapril maleate 10 mg Oral tab 1 tab once daily [Active]; clopidogrel 75 mg Oral tab 1 tab once daily [Active]; aspirin 81 mg Oral chew 1 tab once daily [Active]; Protonix 40 mg Oral TbEC 1 tab once daily [Active]; carvedilol 25 mg Oral tab 1 tab 2 times per day [Active]; Lasix 20 mg Oral tab 1 tab once daily [Active]; cilostazol 100 mg Oral tab 1 tab 2 times per day [Active]; nitroglycerin 0.4 mg SL subl 1 tab every 5 minutes [Active]; ProAir HFA 90 mcg/actuation inhalation HFAA as needed [Active]; - PMHx: 23:31 CAD; COPD; Hypertension; PE; Myocardial infarction; Aneurysm; around left kidney; aa1 - PSHx: 23:31 CABG; Heart stents; Knee surgery; aa1 - Immunization history:: Flu vaccine is up to date. - Coronavirus screen:: The patient has NOT traveled to [employer] in the past 14 days. Proceed with normal triage process as indicated. - Social history:: Smoking status: Patient/guardian denies using tobacco, Stopped _ months ago 0.5. - Ebola Screening: : Patient denies exposure to infectious person Patient denies travel to an Ebola-affected area in the 21 days before illness onset. ROS: 07/28 00:51 Eyes: Negative for injury, pain, redness, and discharge, ENT: Negative for injury, snw pain, and discharge, Neck: Negative for injury, pain, and swelling, Cardiovascular: Negative for chest pain, palpitations, and edema. Abdomen/GI: Negative for abdominal pain, nausea, vomiting, diarrhea, and constipation, Back: Negative for injury and pain, : Negative for injury, bleeding, discharge, and swelling, MS/Extremity: Negative for injury and deformity, Skin: Negative for injury, rash, and discoloration, Neuro: Negative for headache, weakness, numbness, tingling, and seizure, Psych: Negative for depression, anxiety, suicide ideation, homicidal ideation, and hallucinations. Constitutional: Positive for fever, malaise. Respiratory: Positive for cough, with no reported sputum. Exam: 00:51 Head/Face: Normocephalic, atraumatic. Eyes: Pupils equal round and reactive to light, snw extra-ocular motions intact. Lids and lashes normal. Conjunctiva and sclera are non-icteric and not injected. Cornea within normal limits. Periorbital areas with no swelling, redness, or edema. ENT: Nares patent. No nasal discharge, no septal abnormalities noted. Tympanic membranes are normal and external auditory canals are clear. Oropharynx with no redness, swelling, or masses, exudates, or evidence of obstruction, uvula midline. Mucous membranes moist. Neck: Trachea midline, no thyromegaly or masses palpated, and no cervical lymphadenopathy. Supple, full range of motion without nuchal rigidity, or vertebral point tenderness. No Meningismus. Chest/axilla: Normal chest wall appearance and motion. Nontender with no deformity. No lesions are appreciated. Cardiovascular: Regular rate and rhythm with a normal S1 and S2. No gallops, murmurs, or rubs. Normal PMI, no JVD. No pulse deficits. Respiratory: Lungs have equal breath sounds bilaterally, clear to auscultation and percussion. No rales, rhonchi or wheezes noted. No increased work of breathing, no retractions or nasal flaring. Abdomen/GI: Soft, non-tender, with normal bowel sounds. No distension or tympany. No guarding or rebound. No evidence of tenderness throughout. Back: No spinal tenderness. No costovertebral tenderness. Full range of motion. Skin: Warm, dry with normal turgor. Normal color with no rashes, no lesions, and no evidence of cellulitis. MS/ Extremity: Pulses equal, no cyanosis. Neurovascular intact. Full, normal range of motion. Neuro: Awake and alert, GCS 15, oriented to person, place, time, and situation. Cranial nerves II-XII grossly intact. Motor strength 5/5 in all extremities. Sensory grossly intact. Cerebellar exam normal. Normal gait. Psych: Awake, alert, with orientation to person, place and time. Behavior, mood, and affect are within normal limits. 00:51 Constitutional: The patient appears alert, awake, febrile. Vital Signs: 07/27 23:31 BP 117 / 79; Pulse 101; Resp 18; Temp 102.7(O); Pulse Ox 96% on R/A; Weight 88.9 kg; aa1 Height 6 ft. 1 in. (185.42 cm); Pain 0/10; 07/28 01:20 BP 106 / 52; Pulse 89; Resp 16; Temp 100.1; Pulse Ox 100% on R/A; sg 07/27 23:31 Body Mass Index 25.86 (88.90 kg, 185.42 cm) aa1 MDM: 07/27 23:27 Patient medically screened. [facility] 07/28 01:54 Data reviewed: vital signs, nurses notes. Data interpreted: Pulse oximetry: on room air snw is 100 %. Interpretation: normal. Counseling: I had a detailed discussion with the patient and/or guardian regarding: the historical points, exam findings, and any diagnostic results supporting the discharge/admit diagnosis, lab results, radiology results, the need for outpatient follow up, to return to the emergency department if symptoms worsen or persist or if there are any questions or concerns that arise at home. Special discussion: Based on the history and exam findings, there is no indication for further emergent testing or inpatient evaluation. I discussed with the patient/guardian the need to see the primary care provider for further evaluation of the symptoms. 07/27 23:40 Order name: Flu; Complete Time: 00:55 snw 07/28 00:55 Order name: Urine Culture snw 07/27 23:40 Order name: Chest Pa And Lat (2 Views) XRAY snw 07/28 00:55 Order name: Urine Microscopic Only snw 07/28 01:57 Order name: Urine Dipstick--Ancillary (enter results) cm6 07/28 01:58 Order name: Urine Dipstick-Ancillary EDMS 07/28 00:55 Order name: Urine Dipstick-Ancillary (obtain specimen); Complete Time: 01:36 snw 07/28 01:15 Order name: Recheck VS; Complete Time: 01:20 snw Administered Medications: 00:03 Drug: Motrin 400 mg Route: PO; sg 01:00 Follow up: Response: No adverse reaction sg 00:56 Drug: Tussionex Pennkinetic ER 5 ml Route: PO; sg 01:30 Follow up: Response: No adverse reaction sg 00:58 Drug: LevaQUIN 500 mg Route: PO; sg 01:30 Follow up: Response: No adverse reaction sg Disposition: 08:55 Co-signature as Attending Physician, Austin Urban MD I agree with the assessment and lucy plan of care. Disposition: 07/28/19 01:48 Discharged to Home. Impression: Chronic obstructive pulmonary disease, unspecified, Fever presenting with conditions classified elsewhere. - Condition is Stable. - Discharge Instructions: Fever, Adult, Chronic Obstructive Pulmonary Disease Exacerbation. - Prescriptions for Levaquin 500 mg Oral Tablet - take 1 tablet by ORAL route once daily for 7 days; 7 tablet. - Medication Reconciliation Form, Thank You Letter, Antibiotic Education, Prescription Opioid Use form. - Follow up: Emergency Department; When: 2 - 3 days; Reason: Recheck today's complaints, Continuance of care, Re-evaluation by your physician. Follow up: Private Physician; When: 2 - 3 days; Reason: Recheck today's complaints, Continuance of care, Re-evaluation by your physician. Signatures: Dispatcher [employer] EDJoey Prieto RN RN sg Autenrieth, Alissa, RN RN aa1 Anderson, Corey, MD MD cha Therrien, Shelly, ASSEMBLER CATERPILLAR SPIDER-C ASSEMBLER CATERPILLAR SPIDER-Csnw Corrections: (The following items were deleted from the chart) 01:48 07/28/2019 01:48 Discharged to Home. Impression: Chronic obstructive pulmonary sg disease, unspecified; Fever presenting with conditions classified elsewhere. Condition is Stable. Forms are Medication Reconciliation Form, Thank You Letter, Antibiotic Education, Prescription Opioid Use. Follow up: Emergency Department; When: 2 - 3 days; Reason: Recheck today's complaints, Continuance of care, Re-evaluation by your physician. Follow up: Private Physician; When: 2 - 3 days; Reason: Recheck today's complaints, Continuance of care, Re-evaluation by your physician. snw
[2019-07-28 02:06] LABS: Urine Bacteria <20 /HPF (NONE SEEN); Urine Culture Reflex Order NOT NEEDED
[2019-07-28 02:19] VITALS: BP 106/52; TEMP 100.1; O2SAT 100
[2019-07-28 02:25] LABS: Urine Blood NEGATIVE (NEG); Urine Glucose NEGATIVE (NEG); Urine Protein NEGATIVE (NEG)
--- NOTE | 2019-07-28 08:49 | RAD REPORT ---
EXAM DESCRIPTION: RAD - Chest Pa And Lat (2 Views) - 07/28/2019 12:10 am CLINICAL HISTORY: Cough;COPD Chest pain. COMPARISON: Chest Pa And Lat (2 Views) dated 05/27/2019; Chest Pa And Lat (2 Views) dated 05/26/2019 ; Chest Single View dated 03/08/2019; Chest Single View dated 08/27/2018 FINDINGS: The lungs are clear. The heart is mildly enlarged in size with a single lead pacer/ defibr illator device. No displaced fractures. Sternotomy wires present. IMPRESSION: No acute process evident.
== END 2019-07-28 02:02 | disposition home or self-care (01) ==
LOC: ER 22:57
DX: J44.9 Chronic obstructive pulmonary disease, unspecified (principal); I25.10 Atherosclerotic heart disease of native coronary artery without angina pectoris; I10 Essential (primary) hypertension; I25.2 Old myocardial infarction; Z95.1 Presence of aortocoronary bypass graft
CPT/HCPCS: 71046; 81003; 81015; 87086; 87088; 87804; 99284

== ENCOUNTER 2021-11-30 10:27 | Inpatient (IN) | payer OTHER ==
--- OUTSIDE RECORDS SUMMARY | 2021-11-30 10:30 | XMS REPORT | Continuity of Care Document ---
:1950 Author Organization [facility] t Address [address] [place] [address] Care Team Providers Name Role Phone Orta Attending Clinician Unavailable Link Benita KILLIAN Attending Clinician Payers Payer Name Policy Type Policy Number Effective Date Expiration Date S ource Problems Condition Condition Condition Status Onset Resolution Last Treating Co mments Source Name Details Category Date Date Treatment Clinician Date No known No known Disease [facility] active active College problems problems of Medicin e Allergies, Adverse Reactions, Alerts This patient has no known allergies or adverse reactions. Social History Social Habit Start Date Stop Date Quantity Comments Source History [facility] Alcohol Std Drinks of Med icine History [facility] Alcohol Binge of Medicine Sex Assigned At [facility] Alcohol intake 2019-07-27 2019-07-27 Current drinker [facility] 00:00:00 00:00:00 of alcohol of Medicine (finding) History [facility] 2019-07-26 2019-07-26 4 [facility] ge Alcohol Frequency 00:00:00 00:00:00 of Medi cine History of tobacco Current smoker [facility] use 00:00:00 of Medicine Smoking Status Start Date Stop Date Source Former smoker 2019-07-27 00:00:00 2019-07-27 00:00:00 [facility] of [facility] Medications Ordered Filled Start Stop Current Ordering Indication Dosage Frequency Signature Comments Components Source Medication Medication Date Date Medication? Clinician (SIG) Name Name atorvastati Yes atorvastat [facility] n (LIPITOR) 2-17 in 40 mg Danny ege 40 MG 22:06: tablet of tablet 44 Medicin e albuterol Yes albuterol [place]ia 108 (90 2-17 sulfate [place] base) 22:06: HFA 90 of mcg/act 44 mcg/actuat Medici n inhaler ion e aerosol inhaler USE 2 PUFFS PO TID PRF SOB carvedilol 2020-0 Yes carvedilol [facility] (COREG) 2-17 12.5 mg College 12.5 MG 22:06: tablet of tablet 44 Take 1 Medicin tablet e twice a day by oral route for 90 days. carvedilol 2020-0 Yes carvedilol [facility] (COREG) 25 2-17 25 mg College MG tablet 22:06: tablet of 44 Medicin e cilostazol 2020-0 Yes cilostazol [facility] (PLETAL) 2-17 100 mg College 100 MG 22:06: tablet of tablet 44 Medicin e furosemide 2020-0 Yes furosemide [facility] [place] (LASIX) 40 2-17 40 mg College MG tablet 22:06: tablet of 44 Medicin e potassium 2020-0 Yes potassium [place] chloride SA 2-17 chloride Danny ege (K-DUR, 22:06: ER 20 mEq of KLOR-CON 44 tablet,ext Medic in M20) 20 MEQ ended e tablet release(pa rt/cryst) TAKE 1 TAB BY MOUTH DAILY tramadol-ac 2020-0 Yes tramadol [facility] etaminophen 2-17 prn [place] (ULTRACET) 22:03: of 37.5-325 MG 50 Medicin per tablet e Potassium 2020-0 Yes potassium [place] claudia 75 MG TABS 2-17 20mEp per Danny ege 22:03: day of 50 Medicin e docusate 2020-0 Yes Stool [facility] sodium 2-17 Softener [place] (STOOL 22:03: 250 mg of SOFTENER) 50 capsule Medicin 250 MG CAPS Take 1 e capsule every day by oral route as needed. aspirin 325 2020-0 Yes aspirin [place] mg tablet 2-17 325 mg [place] 22:03: tablet of 50 Take 1 Medicin tablet e every day by oral route. ASPIRIN 81 2020-0 Yes aspirin 81 [facility] OR 2-17 mg per day [place] 22:03: of 50 Medicin e Cobalamin 2020-0 Yes B-12 [facility] Combination 2-17 [employer] s (B-12) 22:03: daily of 100-5000 50 Medicin MCG SUBL e Multiple 2020-0 Yes multivitam [place] Vitamins-Mi 2-17 in once a Col lege nerals 21:48: day of (MULTIVITAM 50 Medicin IN ADULT e OR) Garlic 1000 Yes garlic [place] or MG CAPS 2-17 1,000 mg [place] 21:48: capsule of 50 Take 1 Medicin capsule e every day by oral route. Nitroglycer Yes nitroglyce [facility] in 400 2-17 rin 400 [place] MCG/SPRAY 21:48: mcg/spray of AERS 50 translingu Medicin al aerosol e PLACE 1 SPRAY (0.4 MG) BY TRANSLINGU AL ROUTE ONTO OR UNDER THE TONGUE AT THE FIRST SIGN OF AN ATTACK; NO MORE THAN 3 SPRAYS/15 MINUTE PERIOD enalapril Yes TK 1 T PO [place] (VASOTEC) 1-27 QD UTD College 10 MG 00:00: of tablet 00 Medicin e docusate 2014-06 Yes docusate [place] r sodium 0-27 sodium 100 [place] (COLACE) 00:00: mg capsule of 100 MG 00 Take 1 Medicin capsule capsule e every day by oral route. pantoprazol 2014-06 Yes pantoprazo [facility] e 0-27 le 40 mg [place] (PROTONIX) 00:00: tablet,del o f 40 MG 00 ayed Medicin tablet release e TAKE ONE TABLET BY MOUTH TWICE DAILY clopidogrel Yes clopidogre [facility] (PLAVIX) 75 9-25 l 75 mg Colle ge MG Tablet 00:00: tablet of 00 Medicin e furosemide Yes furosemide [place] (LASIX) 20 9-25 20 mg College MG tablet 00:00: tablet TK of 00 1 T PO QD Medicin e Vital Signs Vital Name Observation Time Observation Value Comments Source Systolic blood 2019-07-26 21:41:00 117 mm[Hg] [facility] pressure Medicine Diastolic blood 2019-07-26 21:41:00 76 mm[Hg] [facility] pressure Medicine Heart rate 2019-07-26 21:41:00 76 /min [facility] Body temperature 2019-07-26 21:41:00 36.72 [facility] Body height 2019-07-26 21:41:00 185.4 cm [facility] Body weight 2019-07-26 21:41:00 88.451 kg [facility] BMI 2019-07-26 21:41:00 25.73 kg/m2 [facility] lamar [facility] Procedures Procedure Date / Time Performed Performing Clinician Grace erazo POCT URINALYSIS 2019-07-26 00:00:00 Marvin Best [facility] Mariella cabrera of DIPSTICK Medicine Plan of Care Planned Activity Planned Date Details Comments Source Future Scheduled Test COLON CANCER SCREENING: [facility] COLONOSCOPY [code = Medicine COLON CANCER SCREENING: COLONOSCOPY] Future Scheduled Test TETANUS SHOT (ADULT) [facility] [code = TETANUS SHOT Medicin e (ADULT)] Future Scheduled Test BMI FOLLOW UP PLAN [facility] [code = BMI FOLLOW UP Medici ne PLAN] Future Scheduled Test HEPATITIS C SCREENING [facility] [code = HEPATITIS C Medicine SCREENING] Future Scheduled Test MEDICARE AWV (Initial) [facility] [code = MEDICARE AWV Medicin e (Initial)] Future Scheduled Test AAA Screen [code = AAA [facility] Screen] Medicine Future Scheduled Test FALL SCREEN [code = [facility] FALL SCREEN] Medicine Future Scheduled Test PNEUMOVAX >=65 (PPSV23) [facility] [code = PNEUMOVAX >=65 Medic ine (PPSV23)] Future Scheduled Test PREVNAR >= 65 (PCV13) [facility] [code = PREVNAR >= 65 Medici ne (PCV13)] Future Scheduled Test FLU VACCINE > 6 MONTHS [facility] [code = FLU VACCINE > 6 Medi cine MONTHS] Encounters Start End Encounter Admission Attending Care Care Encounter Source Date/Time Date/Time Type Type Clinicians Facility Department ID 2021-09-11 Outpatient DEBO Orta [facility] [id number] Common 13:09:03 [facility] 2021-09-10 [facility] [id number] Common 13:58:03 [facility]09[facility] [facility] [id number] Common 13:45:03 [facility] 2021-08-21 [facility] [id number] Common 08:27:02 Tamica [facility] 2021-08-13 Outpatient DEBO Orta [facility] [id number] Common 12:49:01 Tamica [facility] 2021-08-03 Outpatient DEBO Orta [facility] [id number] Common 09:08:02 Tamica [facility] 2019-07-26 2019-07-26 Office Link, [facility] [id number] [facility] 15:09:06 16:57:07 Visit Marvin Benita AMBULATOR [id number] College Y [id number] of [id number] Medi giovana 300 e Results Test Description Test Time Test Comments Results Result Comments Source POCT URINALYSIS DIPSTICK 2019-07-26 00:00:00 Test Item Value Reference Range Interpretation Comme nts COLOR UA (test code = 5778-6) Yellow YELLOW/STRAW CLARITY UA (test code = 89878-0) Clear CLEAR GLUCOSE UA (test code = 5792-7) Negative NEGATIVE BILIRUBIN UA (test code = 5770-3) Negative NEGATIVE KETONES UA (test code = 83090-6) Negative NEGATIVE SPECIFIC GRAVITY UA (test code = 5811-5) 1.005-1.035 BLOOD UA (test code = 5794-3) Negative NEGATIVE PH UA (test code = 5803-2) 5-9 PROTEIN UA (test code = 5804-0) Negative NEGATIVE UROBILINOGEN UA (test code = 5818-0) 0.02 E.U/DL NORMAL MG/DL LEUKOCYTE ESTERASE UA (test code = 5799-2) Negative NEGATIVE NITRITE UA (test code = 5802-4) Negative NEGATIVE REDUCING SUBSTANCES URINE (test code = 88750-7) [facility]
[2021-11-30 11:16] LABS: Absolute Lymphocytes (CBC) 1.6 K/uL (0.7-4.9); Hematocrit 36.5 % (39.6-49.0); Lymphocytes % 26.5 % (15.3-44.8); MCV 85.5 fL (80-100); MPV 8.3 fL (7.6-11.3); RBC Red Blood Cell Count 4.27 M/uL (4.33-5.43)
[2021-11-30 11:22] LABS: Protime INR 1.15
[2021-11-30 11:36] LABS: Potassium 3.8 mmol/L (3.5-5.1); Troponin High Sensitivity 40.7 pg/mL (<58.9)
--- NOTE | 2021-11-30 11:57 | RAD REPORT ---
EXAM DESCRIPTION: RAD - Chest Single View - 11/30/2021 11:22 am CLINICAL HISTORY: CHEST PAIN Chest pain. COMPARISON: Chest Pa And Lat (2 Views) dated 07/27/2019; Chest Pa And Lat (2 Views) dated 05/27/2019; Chest Pa And Lat (2 Views) dated 05/26/2019; Chest Single View dated 03/08/2019 FINDINGS: Portable technique limits examination quality. Mild pulmonary edema is seen. The heart is mildly enlarged in size with a single lead pacer/ defibril lator device. No displaced fractures.Sternotomy wires present. IMPRESSION: Mild CHF.
--- NOTE | 2021-11-30 12:06 | ER ---
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 Coronavirus screen: At this time, the client does not indicate any symptoms associated with coronavirus-19. Ebola Screen: No symptoms or risks identified at this time. Initial Sepsis Screen: Does the patient meet any 2 criteria? No. Patient's initial sepsis screen is negative. Does the patient have a suspected source of infection? No. Patient's initial sepsis screen is negative. Risk Assessment: Do you want to hurt yourself or someone else? Patient reports no desire to harm self or others. Onset of symptoms was November 30, 2021 at 08:30. 10:42 Method Of Arrival: Wheelchair jl7 10:42 Acuity: CUATE 2 jl7 Triage Assessment: 10:44 General: Appears in no apparent distress. uncomfortable, Behavior is calm, cooperative, jl7 appropriate for age. Pain: Complains of pain in mid-sternal area Pain does not radiate. Pain currently is 6 out of 10 on a pain scale. Cardiovascular: Patient's skin is warm and dry. Historical: - Allergies: 10:44 No Known Allergies; jl7 - PMHx: 10:44 Aneurysm; around left kidney; CAD; COPD; Hypertension; Myocardial infarction; PE; jl7 Hypercholesterolemia; - PSHx: 10:44 Coronary artery bypass graft; left knee; jl7 - Immunization history:: Client reports receiving the 2nd dose of the Covid vaccine. - Social history:: Smoking status: Patient reports the use of cigarette tobacco products, smokes one-half pack cigarettes per day. - Family history:: not pertinent. - Hospitalizations: : No recent hospitalization is reported. Screenin:45 Abuse screen: Denies threats or abuse. Denies injuries from another. Nutritional bp screening: No deficits noted. Tuberculosis screening: No symptoms or risk factors identified. Fall Risk None identified. Assessment: 10:45 General: SEE TRIAGE NOTE. bp 13:00 Reassessment: No changes from previously documented assessment. Patient and/or family bp updated on plan of care and expected duration. Pain level reassessed. ADMIT INITIATED. 14:00 Reassessment: No changes from previously documented assessment. Patient and/or family bp updated on plan of care and expected duration. Pain level reassessed. 19:33 General: Appears in no apparent distress. Behavior is cooperative. Pain: Denies pain. sm5 Neuro: Level of Consciousness is awake, alert, obeys commands, Oriented to person, place, time, situation. Cardiovascular: Capillary refill < 3 seconds Patient's skin is warm and dry. Rhythm is regular. Respiratory: No deficits noted. Airway is patent Trachea midline Respiratory effort is even, unlabored. Vital Signs: 10:42 BP 122 / 92; Pulse 57; Resp 17; Temp 98.1; Pulse Ox 100% ; Weight 87.09 kg; Height 6 jl7 ft. 1 in. (185.42 cm); Pain 6/10; 12:00 BP 138 / 95; Pulse 72; Resp 24; Pulse Ox 98% ; bp 13:00 BP 145 / 87; Pulse 73; Resp 16; Pulse Ox 99% ; bp 14:00 BP 143 / 94; Pulse 74; Resp 19; Pulse Ox 99% ; bp 20:29 BP 120 / 75; Pulse 68; Resp 17; Pulse Ox 100% on R/A; sm5 10:42 Body Mass Index 25.33 (87.09 kg, 185.42 cm) jl7 ED Course: 10:28 Patient arrived in ED. am2 10:29 Tamica Orta MD is Private Physician. am2 10:42 Wild Leiva, RN is Primary Nurse. bp 10:44 Triage completed. jl7 10:44 Arm band placed on right wrist. jl7 10:45 Niko Wallace MD is Attending Physician. rn 10:45 Patient has correct armband on for positive identification. Bed in low position. Call bp light in reach. Side rails up X2. Adult w/ patient. Client placed on continuous cardiac and pulse oximetry monitoring. NIBP monitoring applied. 11:05 Inserted saline lock: 20 gauge in left antecubital area, using aseptic technique. Blood bp collected. 11:24 XRAY Chest (1 view) In Process Unspecified. EDMS 12:05 Satish Wallace MD is Hospitalizing Provider. rn 12:44 Chest Abd Pelvis Wo Con In Process Unspecified. EDMS 20:28 No provider procedures requiring assistance completed. Patient maintains SpO2 sm5 saturation greater than 95% on room air. 21:01 Patient admitted, IV remains in place. sm5 Administered Medications: 13:45 Drug: Lasix (furosemide) 20 mg Route: IVP; Site: left antecubital; bp Medication: 10:45 VIS not applicable for this client. bp Outcome: 12:05 Decision to Hospitalize by Provider. rn 21:01 Admitted to Tele accompanied by tech, via wheelchair, with chart. sm5 21:01 Condition: stable 21:01 Instructed on the need for admit. 21:01 Patient left the ED. sm5 Signatures: Dispatcher [employer] EDMS Niko Wallace MD MD rn Leal, Jahala, RN RN jl7 Domenica Faulkner Brian RN RN Susan Alexandre RN RN sm5 Corrections: (The following items were deleted from the chart) 10:46 10:44 PMHx: Hypertensive disorder; angelica jl7
--- NOTE | 2021-11-30 12:06 | EDPHYS ---
Physician Documentation [facility] Name: Shaun Yan Age: 71 yrs Sex: Male : 1950 Arrival Date: 11/30/2021 Time: 10:28 Bed 3 Private MD: Tamica Orta ED Physician Niko Wallace HPI: 11/30 11:40 This 71 yrs old Black Male presents to ER via Wheelchair with complaints of Chest Pain. rn 11:40 The patient or guardian reports chest pain that is located primarily in the substernal rn area. Onset: this morning. The pain does not radiate. Associated signs and symptoms: Pertinent negatives: abdominal pain, shortness of breath, syncope, vomiting. The chest pain is described as a pressure. Duration: The patient or guardian reports a single episode, that is still ongoing. Modifying factors: The symptoms are alleviated by NTG, the symptoms are aggravated by nothing. Severity of pain: At its worst the pain was moderate in the emergency department the pain has improved. The patient has experienced similar episodes in the past. The patient has not recently seen a physician. Pt reports hx of cardiac bypass and stents, bypass approx 15 years ago, woke up with substernal chest pain, non-radiating, no trauma, no sob, no vomiting. Improved with nitro x 2. No abd pain. . Historical: - Allergies: 10:44 No Known Allergies; jl7 - PMHx: 10:44 Aneurysm; around left kidney; CAD; COPD; Hypertension; Myocardial infarction; PE; jl7 Hypercholesterolemia; - PSHx: 10:44 Coronary artery bypass graft; left knee; jl7 - Immunization history:: Client reports receiving the 2nd dose of the Covid vaccine. - Social history:: Smoking status: Patient reports the use of cigarette tobacco products, smokes one-half pack cigarettes per day. - Family history:: not pertinent. - Hospitalizations: : No recent hospitalization is reported. ROS: 11:40 Constitutional: Negative for fever, chills, and weight loss, Eyes: Negative for injury, rn pain, redness, and discharge, Neck: Negative for injury, pain, and swelling, Cardiovascular: + chest pain Respiratory: Negative for shortness of breath, cough, wheezing, and pleuritic chest pain, Abdomen/GI: Negative for abdominal pain, nausea, vomiting, diarrhea, and constipation, Back: Negative for injury and pain, MS/Extremity: Negative for injury and deformity, Skin: Negative for injury, rash, and discoloration, Neuro: Negative for headache, weakness, numbness, tingling, and seizure. Exam: 11:40 Constitutional: This is a well developed, well nourished patient who is awake, alert, rn and in no acute distress. Head/Face: Normocephalic, atraumatic. Eyes: Periorbital areas with no swelling, redness, or edema. Cardiovascular: Regular rate and rhythm. No pulse deficits. Respiratory: No increased work of breathing, no retractions or nasal flaring. Abdomen/GI: Soft, non-tender Skin: Warm, dry MS/ Extremity: Pulses equal, no cyanosis. Neuro: Awake and alert, GCS 15 13:18 ECG was reviewed by the Attending Physician. rn Vital Signs: 10:42 BP 122 / 92; Pulse 57; Resp 17; Temp 98.1; Pulse Ox 100% ; Weight 87.09 kg; Height 6 jl7 ft. 1 in. (185.42 cm); Pain 6/10; 12:00 BP 138 / 95; Pulse 72; Resp 24; Pulse Ox 98% ; bp 13:00 BP 145 / 87; Pulse 73; Resp 16; Pulse Ox 99% ; bp 14:00 BP 143 / 94; Pulse 74; Resp 19; Pulse Ox 99% ; bp 20:29 BP 120 / 75; Pulse 68; Resp 17; Pulse Ox 100% on R/A; sm5 10:42 Body Mass Index 25.33 (87.09 kg, 185.42 cm) jl7 MDM: 10:45 Patient medically screened. rn 12:04 Differential diagnosis: acute myocardial infarction, acute pericarditis, chest wall rn pain, congestive heart failure pleurisy, pneumonia, pneumothorax, pulmonary embolus, stable angina, thoracic aortic disection, unstable angina. Data reviewed: vital signs, nurses notes, lab test result(s), EKG, radiologic studies, plain films, and as a result, I will admit patient. Counseling: I had a detailed discussion with the patient and/or guardian regarding: the historical points, exam findings, and any diagnostic results supporting the discharge/admit diagnosis, lab results, radiology results, the need for further work-up and treatment in the hospital. Response to treatment: the patient's symptoms have mildly improved after treatment, and as a result, I will admit patient. Admission orders: after a detailed discussion of the patient's condition and case, the admit orders are written by me. 11/30 10:43 Order name: Basic Metabolic Panel; Complete Time: 11:43 bp 11/30 10:43 Order name: CBC with Diff; Complete Time: 11:43 bp 11/30 10:43 Order name: NT PRO-BNP; Complete Time: 11:43 bp 11/30 10:43 Order name: PT-INR; Complete Time: 11:43 bp 11/30 10:43 Order name: Troponin HS; Complete Time: 11:43 bp 11/30 15:41 Order name: SARS-COV-2 RT PCR (Document "Date of Onset" if Symptomatic) 11/30 10:43 Order name: XRAY Chest (1 view); Complete Time: 12:01 bp 11/30 10:43 Order name: EKG; Complete Time: 10:43 bp 11/30 12:34 Order name: Chest Abd Pelvis Wo Con; Complete Time: 13:14 EDNJ 11/30 15:28 Order name: CONS Physician Consult EDNJ 11/30 17:06 Order name: Troponin High Sensitivity EDNJ 11/30 18:21 Order name: SARS-COV-2 RT PCR EDNJ 11/30 10:43 Order name: Cardiac monitoring; Complete Time: 11:04 bp 11/30 10:43 Order name: EKG - Nurse/Tech; Complete Time: 11:04 bp 11/30 10:43 Order name: IV Saline Lock; Complete Time: 11:04 bp 11/30 10:43 Order name: Labs collected and sent; Complete Time: 11:04 bp 11/30 10:43 Order name: O2 Per Protocol; Complete Time: 11:04 bp 11/30 10:43 Order name: O2 Sat Monitoring; Complete Time: 11:04 bp EC:18 Rate is 73 beats/min. Rhythm is regular. QRS Snyder is Normal. NH interval is normal. QRS rn interval is normal. QT interval is normal. No Q waves. T waves are Inverted in leads I, aVL. No ST changes noted. Clinical impression: NSR w/ Non-specific ST/T Changes. Reviewed by me. Administered Medications: 13:45 Drug: Lasix (furosemide) 20 mg Route: IVP; Site: left antecubital; bp Disposition Summary: 11/30/21 12:05 Hospitalization Ordered Hospitalization Status: Observation rn Provider: Satish Wallace rn Location: Telemetry/MedSurg (observation) rn Condition: Stable rn Problem: new rn Symptoms: have improved rn Bed/Room Type: Standard rn Room Assignment: 408(11/30/21 20:21) cg Diagnosis - Chest pain, unspecified rn Forms: - Medication Reconciliation Form rn - SBAR form rn Signatures: Dispatcher [employer] EDMS Niko Wallace MD MD rn Garcia, Cindy RN RN cg Feliberto Peter, RN RN jl7 Wild Leiva, RN RN bp Susan Muñoz, RN RN sm5 Corrections: (The following items were deleted from the chart) 10:46 10:44 PMHx: Hypertensive disorder; jl7 jl7 12:33 12:07 Angio Aorta For Dissection+CT.RAD.BRZ ordered. EDNJ EDNJ 20: 12:05 rn cg
--- NOTE | 2021-11-30 13:12 | RAD REPORT ---
EXAM DESCRIPTION: CT - Chest Abd Pelvis Wo Con - 11/30/2021 12:42 pm CLINICAL HISTORY: chest pain, aneurysm, abdominal pain, pelvic pain COMPARISON: Chest For Pe Angio dated 03/08/2019; Stone Protocol dated 05/27/2019 TECHNIQUE: During dynamic enhancement using 100 milliliters nonionic IV contrast, axial 5 millimeter thick images of the chest, abdomen and pelvis were obtained. Biphasic technique was utilized through the abdomen. Oral contrast was administered. All CT scans are performed using dose optimization technique as appropriate and may include automated exposure control or mA/KV adjustment according to patient size. FINDINGS: Right apical bullous changes are present similar to 2019. Bullous changes are seen anterom edial right lung base in the right middle lobe. These were also present in 2019. No pulmonary contusi on or acute lung parenchymal process. No pneumothorax is present. Trace bilateral pleural effusions a re present smaller than seen in 2019. No chest wall mass or abnormal axillary lymphadenopathy seen. Mediastinal and hilar regions show no mass or lymphadenopathy. Few nonspecific noncalcified mediasti nal lymph nodes are present. Bilateral gynecomastia is present. Mild cardiomegaly is present without pericardial effusion. Dense coronary artery calcifications are p resent. CABG surgical changes are present. The liver, spleen and pancreas show no significant findings. Gallbladder is partly contracted. No bi liary tree dilatation. Gallstones can be occult. Right kidney size is normal with no hydronephrosis or right-sided mass. No obstructing or nonobstruct ing calculi. The hydronephrosis on the right side seen in 2019 has resolved. Atrophy of the left kidn ey relative to the right is stable from the 2019 study. No left-sided hydronephrosis, calculus or oth er significant finding. Partially filled urinary bladder shows no stone or gross evidence for mass . Prostate gland and seminal vesicles within normal range. No adrenal abnormality. Stomach is empty which accentuates wall thickness. No gross evidence for a gastric mass. No dilated l arge or small bowel. Moderate stool volume fills the rectosigmoid colon. An acute GI process is not s een. No free air, free fluid or inflammatory stranding. No hernia, mass or bulky lymphadenopathy. Ascending thoracic aorta is 4.5 cm AP x 3.9 cm TR. Aortic arch is 3.0 cm in diameter. Proximal portio n of the descending thoracic aorta is 4.1 cm in diameter with a aorta 3.2 cm AP x 3.1 cm TR at the cr us of the diaphragm. Renal artery calcifications are present. Infrarenal abdominal aorta is 3.3 cm AP x 3.6 cm TR. This is not significantly different from 2019. Common iliac artery diameter is 2.1 cm o n the right and 2.3 cm on the left also similar to 2019. Vascular assessment is limited in the absenc e of contrast. No centrally displaced calcification. No perivascular mass or evidence for acute vascu lar finding on noncontrast imaging. Disc and bone degenerative changes are present. No pathologic bone process. IMPRESSION: CT chest shows very minimal bilateral pleural effusions decreased in size from 2019. As detailed above, no acute CT chest finding is evident. As detailed above, no acute findings seen in the abdomen or pelvis. Infrarenal aortoiliac dilatation as detailed, stable from 2019. Size of thoracic aorta is also stable . CT abdomen and pelvis imaging shows no significant or suspicious finding.
[2021-11-30] MEDS ORDERED: FUROSEMIDE 20 MG/ 2ML VIAL ONE (13:42)
[2021-11-30] MEDS ORDERED: ONDANSETRON 4 MG/2 ML VIAL IV PRN (15:26)
--- NOTE | 2021-11-30 15:31 | P.HP ---
Certification for Inpatient Patient admitted to: Observation With expected LOS: <2 Midnights Practitioner: I am a practitioner with admitting privileges, knowledge of patient current condition, hospital course, and medical plan of care. Services: Services provided to patient in accordance with Admission requirements found in Title 42 Section 412.3 of the Code of Federal Regulations Patient History Date of Service: 11/30/21 Reason for admission: unstable angina History of Present Illness: 71yo M, PMH: CAD s/p CABG & stents, COPD, HTN, remote h/o provoked PE Presents to ED due to chest pressure, associated with shortness of breath. Symptoms began this morning ~9am, as patient was walking back to bed from his bathroom. Had similar less severe episode ~1-2 months ago. Seen at [facility] ER and discharged home. Patient denies any recent illness. Was in his usual state of health until this episode. He was instructed by his research management associate to stop taking apirin ~2 months ago. Continued to smoke up until a few days ago. Sees his research management associate in [place], had echo earlier this year and states research management associate didn't mention anything out of the ordinary. Denies any recent swelling in his legs EKG and initial troponin in the ED ok. CXR with mild CHF pattern. Allergies No Known Allergies Allergy (Unverified 05/26/19 20:42) Home Medications: Aspirin [Aspirin EC 81 MG] 81 mg PO DAILY 05/26/19 Atorvastatin Calcium [Lipitor] 40 mg PO BEDTIME 05/26/19 Carvedilol [Coreg] 25 mg PO BID 05/26/19 Clopidogrel Bisulfate [Plavix*] 75 mg PO DAILY 05/26/19 Docusate Sodium [Stool Softener] 250 mg PO PRN PRN 05/26/19 Enalapril [Vasotec*] 10 mg PO DAILY 05/26/19 Garlic 1 cap PO DAILY 05/26/19 Nitroglycerin [Nitrostat*] 0.4 mg SL PRN PRN 05/26/19 Pantoprazole [Protonix Tab*] 40 mg PO BID 05/26/19 Vit B12/Levomefolate/Vit B6/B2 [l-Methyl-Mc Tablet] 1 cap PO DAILY 05/26/19 cilostazoL [Cilostazol] 100 mg PO BID 05/26/19 Albuterol Sulfate [Proair Hfa] 2 puff IH TID PRN #1 hfa.aer.ad 05/27/19 Budesonide/Formoterol Fumarate [Symbicort 160-4.5 Mcg Inhaler] 2 puff IH BID #1 hfa.aer.ad 05/27/19 Furosemide [Lasix] 40 mg PO DAILY #30 tab 05/27/19 - Past Medical/Surgical History Diabetic: No -: Hypertension -: Hyperlipidemia -: CAD with prior CABG x4 vessel -: CHF -: Tobacco abuse -: COPD -: defibrillator-2014 -: Cardiac stents x3 -: CABG x4 vessel -: Left knee surgery Psychosocial/ Personal History: Patient is single. He recently moved back to the area. - Family History Mother -: Hypertension, Other (see notes) Notes: alzheimers - Social History Smoking Status: Current every day smoker Alcohol use: Yes CD- Drugs: No Caffeine use: Yes Place of Residence: Home Review of Systems 10-point ROS is otherwise unremarkable Physical Examination - Physical Exam General: Alert, In no apparent distress, Oriented x3 HEENT: EOMI, Sclerae nonicteric Respiratory: Clear to auscultation bilaterally, Normal air movement, Diminished (slightly at bases) Cardiovascular: Regular rate/rhythm, Edema (trace bilateral pedal) Gastrointestinal: Soft and benign, Non-distended, No tenderness Musculoskeletal: No contractures, No tenderness Integumentary: No rashes, No significant lesion Neurological: Normal speech, Normal strength at 5/5 x4 extr, Normal affect - Studies Laboratory Data (last 24 hrs) 11/30/21 11:05: PT 12.7 H, INR 1.15 11/30/21 11:05: WBC 6.1, Hgb 12.0 L, Hct 36.5 L, Plt Count 165 11/30/21 11:05: Sodium 139, Potassium 3.8, BUN 16, Creatinine 1.95 H, Glucose 107 H Assessment and Plan - Advance Directives Does patient have a Living Will: Yes Does patient have a Durable POA for Healthcare: Yes Physician Review Additional Text: Problem List Chest pain, unstable angina CAD s/p CAD, CABG HTN HLD COPD remote h/o PE aspirin, beta ryan, statin trend troponin significant cardiac history cardiology consulted telemetry CXR ok VTE: lovenox Code: full Dispo: home, ~1-2 days Time Spent Managing Pts Care (In Minutes): 60
[2021-11-30] MEDS ORDERED: ENOXAPARIN 40 MG/0.4 ML SQ SCH (16:00)
[2021-11-30] MEDS: carvediloL 25 MG TAB PO SCH (18:00)
[2021-11-30] MEDS ORDERED: HEPARIN 5000 UNIT/ML 1 ML VIAL ONE (18:40)
[2021-11-30] MEDS ORDERED: HEPARIN/D5W 25,000 UNIT/500 ML BAG IV ONE (18:40)
[2021-11-30] MEDS ORDERED: carvediloL 6.25 MG TAB ONE ×2 (18:41→18:47)
[2021-11-30] MEDS: HEPARIN/D5W 25,000 UNIT/500 ML BAG IV PRN (18:48)
[2021-11-30 21:51] VITALS: BMI 25.4
[2021-11-30] MEDS: ATORVASTATIN 40 MG TAB PO SCH (23:02)
[2021-12-01 04:22] LABS: Absolute Lymphocytes (CBC) 2.8 K/uL (0.7-4.9); Hematocrit 34.3 % (39.6-49.0); Lymphocytes % 38.9 % (15.3-44.8); MCV 83.5 fL (80-100); RBC Red Blood Cell Count 4.11 M/uL (4.33-5.43)
[2021-12-01 04:47] LABS: Albumin 3.1 g/dL (3.4-5.0); Bilirubin Total 0.4 mg/dL (0.2-1.0); Magnesium 1.5 mg/dL (1.8-2.4); Potassium 3.2 mmol/L (3.5-5.1); Protein, Total 6.4 g/dL (6.4-8.2); Thyroid Stimulating Hormone 1.2 uIU/mL (0.360-3.740)
[2021-12-01] MEDS ORDERED: Magnesium Sulfate 2gm IVPB 2 G/50 ML BAG IV ONE (05:22)
[2021-12-01] MEDS ORDERED: POTASSIUM CL SA 10 MEQ TAB PO ONE (05:23)
[2021-12-01] MEDS: carvediloL 25 MG TAB PO SCH ×2 (06:05→17:52)
[2021-12-01] MEDS: ASPIRIN EC 81 MG TAB PO SCH (09:00)
[2021-12-01] MEDS ORDERED: NITROGLYCERIN 0.4 MG/TAB SL PRN (16:00)
--- NOTE | 2021-12-01 16:04 | P.PN ---
Date of Service: 12/01/21 Subjective: chest pain resolved yesterday afternoon no further events, no SOB, no chest pressure trop trended up, placed on heparin drip yesterday ROS: 10 point ROS as noted above, otherwise negative Physical exam GEN: Alert, oriented, NAD HEENT: Normal conjunctiva, sclera anicteric CV: Regular rate and rhythm, +II/ systolic murmur Pulm: Nonlabored respirations on room air, clear to auscultation ABD: Soft, nontender, nondistended Integumentary: No rashes Neuro: Normal speech, normal affect Problem List NSTEMI CAD s/p CAD, CABG HTN HLD COPD remote h/o PE (provoked) initially started on aspirin, continued home beta ryan,statin, plavix cardiology consulted troponin trended up heparin drip started continue telemetry repeat EKG this morning significant cardiac history VTE: lovenox Code: full Dispo: home, ~2-3 days likely will need cardiac cath Time Spent Managing Pts Care (In Minutes): 35
--- NOTE | 2021-12-01 17:29 | EKG ---
Test Date: 2021-11-30 Test Time: 11:00:00 Cdl Driver: BP MEASUREMENT RESULTS: Intervals: Rate: 73 NC: 168 QRSD: 110 QT: 440 QTc: 484 [place]: P: 54 NC: 168 QRS: -15 T: 96 INTERPRETIVE STATEMENTS: Sinus rhythm with occasional premature ventricular complexes ST & T wave abnormality, consider lateral ischemia Prolonged QT Abnormal ECG Compared to ECG 05/26/2019 20:12:10 Ventricular premature complex(es) now present ST (T wave) deviation now present Sinus arrhythmia no longer present T-wave abnormality no longer present Possible ischemia still present Electronically Signed On 12-01-21 17:27:58 CDT by Jay Cerna
[2021-12-01] MEDS: PANTOPRAZOLE 40MG TABLET PO SCH (17:51)
--- NOTE | 2021-12-01 20:40 | CON ---
Date of Consultation: 12/01/2021 Reason For Consultation: [id number] myocardial infarction. History Of Present Illness: 71-year-old male with history of coronary artery disease, status post qu adruple bypass many years ago and followed by some stents placement. Has COPD, hypertension, history of provoked pulmonary embolism, presented with chest pain, shortness of breath. He was watching TV and started having pressure-like chest pain goes to his neck and left upper extremity. Seen in the [facility] and discharged home and then he presented to our hospital because the pain came back and his trop onin was elevated. Since hospitalization, he is chest pain-free. Past Medical History: As outlined above in the HPI. Medications: Refer reconciliation sheet for detailed list. Allergies: NO KNOWN DRUG ALLERGIES. Family History: No premature coronary artery disease or cancer. Social History: He smokes about a pack per day. Does not drink or use any drugs. Review of Systems: All systems reviewed and they were negative except for mentioned in HPI. Physical Examination: Vital Signs: Reviewed. Head and Neck: Pupils are equal, reactive to light. Intact eye movements. No JVD. No cervical lym phadenopathy. Neck is supple. Thyroid is not enlarged. Lungs: Clear to auscultation bilaterally. No rhonchi, rales, or crackles. No accessory muscle use. Heart: Regular rate and rhythm. No extra sounds. Abdomen: Soft, nontender. Bowel sounds positive. No organomegaly. No masses or hernia. No rigidi ty or rebound. Extremities: No edema, clubbing, or cyanosis. Intact pulses. Skin: No rashes. Neurologic: Alert, awake, oriented x3. No acute focal deficits were appreciated. Investigations: Troponin peaked at 3263, creatinine is 1.78. Assessment And Recommendations: 1.Ieq-TK-bmcprobai myocardial infarction. Known history of coronary artery disease. Continue to tr end troponin until it trends down. Recommend IV heparin, baby aspirin, and continue Plavix for now a nd we will plan for coronary angiogram on Friday. Also continue with Coreg and obtain an echocardiog gaviota. 2.Renal failure. His creatinine is slightly better today. Keep monitoring. 3.Congestive heart failure. Obtain an echo to evaluate his ejection fraction. Apparently, this pat ient had an implantable cardioverter-defibrillator in place, so his ejection fraction must be very lo w. He appears to be euvolemic. Avoid overhydration and obtain an echo. Thank you for the consult. /ELIUD Voice ID: [id number] Report ID: [id number]
[2021-12-01] MEDS: ATORVASTATIN 40 MG TAB PO SCH (21:11)
--- NOTE | 2021-12-01 23:25 | CON ---
Date of Consultation: 12/01/2021 Chief Complaint: Acute on chronic kidney injury. History Of Present Illness: The patient is a 71-year-old man with history of coronary artery disease status post CABG and stent, COPD, hypertension, history of remote PE. He presented to the emergency room because of chest pain pressure like associated with shortness of breath. He was walking back t o the back ground when he developed severe chest pain. He was previously seen at [place] emergency room f or similar symptoms. The patient currently denies chest pain. Denies fever, chills. The patient is active smoker, although he says that he quit smoking few days ago. The patient was seen previously by Cardiology in [place], as well as the [place] [facility]. He was seen by urologist for kidney cyst. H e does not recall what his creatinine was recently. 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 EKG and initial troponin were done in the emergency room. Subsequently, trop onin was found to be elevated, and chest x-ray showed mild congestive heart failure pattern. The pat ient is taking multiple medications including atorvastatin, enalapril, nitroglycerin, cilostazol, and furosemide. Past Medical History: Hypertension, hyperlipidemia, coronary artery disease with prior history of CA BG, 4-vessel disease, congestive heart failure, tobacco abuse, COPD, defibrillator 2014, cardiac sten ts x3, left knee surgery. Family History: Mother had hypertension and Alzheimer. Social History: He is a smoker. Denies alcohol and drugs. Review of Systems: General: Denies fever, chills. Eyes: Denies vision changes. Ear, Nose, Mouth, and Throat: Denies sore throat, earache. Respiratory: Has some dyspnea on exertion. GI: Denies nausea, vomiting. : Denies hematuria, dysuria, incomplete voiding. Denies kidney colic. Extremities: Has some edema. Denies extremity weakness. All other systems reviewed and all are negative. Physical Examination: General: The patient is awake, alert, follows commands. Eyes: Anicteric sclerae and EOMI. Ears, Nose, Mouth, and Throat: Oral mucosa moist. No pallor. Gastrointestinal: Abdomen is soft, benign, nontender. Extremities: No edema, no clubbing, no cyanosis. Neurological: Moving extremities. Cranial nerves intact. Psychiatric: The patient follows commands. Normal affect. Laboratory Data: Sodium 149, potassium 3.8, BUN 16, creatinine 1.95. Hemoglobin 12, WBC 6.1. Impression And Plan: Acute on chronic kidney injury. The patient has underlying chronic kidney dise ase stage 3A. Renal function has declined over the last few months. The patient has acute on chroni c kidney injury versus natural progression of the chronic kidney disease. Likely, the patient has ca rdiorenal syndrome. The patient was found to have elevated troponin and Cardiology is consulted for acute coronary syndrome. Chest x-ray showed congestive heart failure. Monitor electrolytes. Adjust diuretic as needed. The patient is on beta-ryan and SHIVANI inhibitor for congestive heart failure a nd coronary artery disease. Plan is to check renal ultrasound. The patient previously was seen by urologist for possible kidney cyst versus kidney mass. Ultrasound done in May 2019 when he was hospitalized in this hospital showed right kidney measured 12.9 cm with moderate right hydronephrosis, left kidney was 7.9 x 4.5 cm without hydronephrosis. The patient may need a Urology consultation during this admission. SHRUTHI/ELIUD Voice ID: [id number] Report ID: [id number]
[2021-12-02] MEDS: HEPARIN/D5W 25,000 UNIT/500 ML BAG IV PRN (03:49)
[2021-12-02 05:14] LABS: Hematocrit 33.9 % (39.6-49.0); MCV 84.3 fL (80-100); RBC Red Blood Cell Count 4.02 M/uL (4.33-5.43)
[2021-12-02 05:43] LABS: Magnesium 1.8 mg/dL (1.8-2.4); Potassium 3.4 mmol/L (3.5-5.1)
[2021-12-02] MEDS ORDERED: POTASSIUM CL SA 10 MEQ TAB PO ONE ×2 (06:16→16:44)
[2021-12-02] MEDS ORDERED: MAGNESIUM SULFATE 1 gm IVPB 1 GM/100 ML BAG IV ONE ×2 (06:16→10:00)
[2021-12-02] MEDS: carvediloL 25 MG TAB PO SCH ×2 (06:48→18:46)
--- NOTE | 2021-12-02 07:08 | P.PN ---
Date of Service: 12/02/21 Subjective: no further chest pain/pressure trop peaked, now downtrending on heparin drip ROS: 10 point ROS as noted above, otherwise negative Physical exam GEN: Alert, oriented, NAD HEENT: Normal conjunctiva, sclera anicteric CV: Regular rate and rhythm, +II/ systolic murmur Pulm: Nonlabored respirations on room air, clear to auscultation ABD: Soft, nontender, nondistended Neuro: Normal speech, normal affect Problem List NSTEMI CAD s/p CAD, CABG HTN HLD COPD Peripheral vascular disease remote h/o PE (provoked) aspirin, continued home beta ryan, statin, plavix cardiology consulted troponin trended up; heparin drip plan for cardiac cath tomorrow continue telemetry no further chest pain/pressure VTE: heparin drip Code: full Dispo: home, ~1-2 days pending cardiac cath Time Spent Managing Pts Care (In Minutes): 35
--- NOTE | 2021-12-02 07:38 | RAD REPORT ---
EXAM DESCRIPTION: US - Renal Ultrasound-Complete - 12/02/2021 6:49 am CLINICAL HISTORY: [facility] , [place] COMPARISON: Chest Abd Pelvis Wo Con dated 11/30/2021; Stone Protocol dated 05/27/2019 FINDINGS: The right kidney measures 11.4 x 4.5 x 5.1 cm. The left kidney measures 6.2 x 3.7 x 2.[address] Prior day CT study demonstrated left renal atrophy relative to the right. Right-side cortical thic kness is normal. There is increased cortical echogenicity in the right kidney. Cortical thickness the left kidney is in proportion to the renal size. Cortical echogenicity is increased on the left as we ll. No hydronephrosis or suspicious renal mass. Small 8 mm cyst present lower pole left kidney. Partially filled bladder shows no suspicious finding. IMPRESSION: No hydronephrosis or suspicious renal mass. Both kidneys show increased cortical echogenicity consistent with underlying medical renal disease. Atrophy of the left kidney relative to the right, matching the finding CT imaging.
[2021-12-02] MEDS ORDERED: POTASSIUM 25 MEQ EFFERV TAB PO ONE ×2 (09:00→10:00)
[2021-12-02] MEDS: CLOPIDOGREL 75 MG TABLET PO SCH (09:40)
[2021-12-02] MEDS: ASPIRIN EC 81 MG TAB PO SCH (09:40)
[2021-12-02] MEDS: PANTOPRAZOLE 40MG TABLET PO SCH ×2 (09:40→18:46)
--- NOTE | 2021-12-02 20:42 | PN ---
Date of Progress Note: 12/02/2021 Subjective: The patient was seen by bedside. Has no further chest pain episodes. Lying in bed comf ortably. Review of Systems: No chest pain, shortness of breath, orthopnea, cough. No nausea, vomiting, diarrhea. No abdominal p ain. No dysuria, polyuria, or urinary urgency. All other systems reviewed are negative. Physical Examination: Vital Signs: Temperature is 97.8, pulse 69, breathing 18, blood pressure is 118/86, saturating 99% o n room air. General: Pleasant, elderly male, in no apparent distress. Head and Neck: Pupils are equal, reactive to light. Intact eye movements. No JVD. No cervical lym phadenopathy. Neck is supple. Thyroid is not enlarged. Lungs: Clear to auscultation bilaterally. No rhonchi, wheezing, or crackles. No accessory muscle u se. Heart: Regular rate and rhythm. No extra sounds. Abdomen: Soft, nontender. Bowel sounds positive. No organomegaly. No masses or hernia. No rigidi ty or rebound. Extremities: No edema, clubbing, or cyanosis. Intact pulses. Skin: No rash. Neurologic: Alert, awake, oriented x3. No acute focal deficits appreciated. Investigations: Troponin is down to 2291. Creatinine is 1.65. Assessment And Recommendations: 1.Non-ST elevation myocardial infarction. Continue IV heparin, baby aspirin, and plan for coronary angiogram tomorrow. Please keep the patient n.p.o. past midnight for left heart catheterization lily rrow. Medication chávez; discontinue heparin, Coreg, and Lipitor as well as aspirin and Plavix. 2.Dyslipidemia. Continue high potency statin with Lipitor. 3.Congestive heart failure. Obtain an echo to evaluate the heart function and adjust medications ac cordingly. SR/MODL Voice ID: [id number] Report ID: [id number]
--- NOTE | 2021-12-02 22:02 | RAD REPORT ---
EXAM DESCRIPTION: US - Abdomen Pelvis Scan US - 12/02/2021 7:08 pm CLINICAL HISTORY: renal artery doppler COMPARISON: No comparisons TECHNIQUE: Sonographic evaluation of the kidneys was performed with measurements obtained and gross anatomic assessment performed.Doppler evaluation of the renal arteries, interlobar arteries and aorta performed. Waveforms and velocities were recorded. The renal artery ratios and resistive index kole ues were calculated. FINDINGS: Evaluation of the aorta and left kidney was limited due to bowel gas. Renal anatomic detai ls were provided on the renal ultrasound performed earlier. Abdominal aortic aneurysm is noted approximately 3.6 cm in diameter. This matches the November 30 CT stud y. No suspicious velocity value or waveform abnormality. Right renal artery resistive index values range from 0.66-0.76 in value. Left renal artery resistive index values range from 0.73-0.84 in value. Rig ht arcuate artery resistive index value was 0.63 with the left arcuate resistive index 0.71 in value. Renal artery ratios are normal range measuring 1.58 on the left and 1.57 on the right. IMPRESSION: Renal Doppler evaluation shows no abnormal velocity value or waveform pattern. Renal artery ratios are normal range. Renal artery stenosis is not suspected.
[2021-12-02] MEDS: ATORVASTATIN 40 MG TAB PO SCH (22:24)
[2021-12-02] MEDS: cilostazoL 100 MG TAB PO SCH (22:24)
--- NOTE | 2021-12-03 01:55 | PN ---
Date of Progress Note: 12/02/2021 Chief Complaint: Acute on chronic kidney injury. Subjective: The patient is admitted to the hospital because of chest pain. He has a history of hydr onephrosis. Currently, CT scan without did not show hydronephrosis, although the patient has atrophi c kidneys and renal artery stenosis. The patient has history of coronary artery disease, status CABG and stent; COPD; hypertension; history of remote PE; history of hydronephrosis. He was s een by urologist for hydronephrosis. The patient has history of congestive heart failure. 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 EKG and initial troponin were done in the emergency room. Subsequently, his troponin was found to be elevated and chest x-ray showed mild congestive heart failure. Review of Systems: The patient is feeling better. Objective: Lungs: Clear to auscultation bilaterally. Heart: S1 and S2. Abdomen: Soft, benign. Extremities: Slight edema. Assessment And Plan: Acute kidney injury on chronic kidney injury. The patient has underlying chron ic kidney disease stage 3A. Renal function has declined over the last few months. The patient has h istory of chronic kidney disease due to multiple causes including history of hydronephrosis and obstr uctive uropathy. Recent workup did not confirm active hydronephrosis of the . The patient is on beta-ryan and SHIVANI inhibitor for congestive heart failure and blood pressure control. Adjus t medication for adequate blood pressure control. Renal ultrasound was done during this admission and Doppler will be done to rule out renal artery loy nosis. SHRUTHI/ELIUD Voice ID: [id number] Report ID: [id number]
[2021-12-03 04:24] LABS: Magnesium 2.1 mg/dL (1.8-2.4); Potassium 3.9 mmol/L (3.5-5.1)
--- NOTE | 2021-12-03 07:03 | P.PN ---
Date of Service: 12/03/21 Subjective: ROS: 10 point ROS as noted above, otherwise negative Physical exam GEN: Alert, oriented, NAD HEENT: Normal conjunctiva, sclera anicteric CV: Regular rate and rhythm, +II/ systolic murmur Pulm: Nonlabored respirations on room air, clear to auscultation ABD: Soft, nontender, nondistended Neuro: Normal speech, normal affect Problem List NSTEMI CAD s/p CAD, CABG HTN HLD COPD Peripheral vascular disease remote h/o PE (provoked) aspirin, continued home beta ryan, statin, plavix cardiology consulted troponin trended up; heparin drip plan for cardiac cath tomorrow continue telemetry no further chest pain/pressure VTE: heparin drip Code: full Dispo: home, ~1-2 days pending cardiac cath Time Spent Managing Pts Care (In Minutes): 35
[2021-12-03] MEDS: CLOPIDOGREL 75 MG TABLET PO SCH (07:11)
[2021-12-03] MEDS: carvediloL 25 MG TAB PO SCH (07:11)
[2021-12-03] MEDS: ASPIRIN EC 81 MG TAB PO SCH (07:11)
[2021-12-03] MEDS: PANTOPRAZOLE 40MG TABLET PO SCH ×2 (07:30→16:51)
[2021-12-03] MEDS: cilostazoL 100 MG TAB PO SCH (07:36)
[2021-12-03] MEDS ORDERED: NA CHLORIDE 0.9% 500 ML ONE (08:46)
[2021-12-03] MEDS ORDERED: HEPA 1000U/500MLS 2,000 UNIT/1,000 ML BAG IV ONE (09:37)
[2021-12-03] MEDS ORDERED: ATROPINE SULF 1 MG/10 ML SYR IV ONE (10:54)
[2021-12-03] MEDS ORDERED: MIDAZOLAM HCL 2 MG/2 ML INJ ONE ×2 (10:55→11:21)
[2021-12-03] MEDS ORDERED: FENTANYL CITR 100 MCG/2 ML ONE (10:56)
[2021-12-03] MEDS ORDERED: NITROGLYCERIN 100 MCG/ML SYR (for cath lab use only) IV ONE (10:56)
[2021-12-03] MEDS ORDERED: ACETYLCYST 20% 4 ML VIAL IH ONE (11:36)
--- NOTE | 2021-12-03 12:16 | OP ---
Date of Procedure: 12/03/2021 Surgeon: Pipe Carrillo MD Front Desk Associate: Ashleigh Bennett. Procedures: Left heart catheterization with selective coronary arteriogram, LINDESY injection, aortic r oot injection, and common femoral artery angiogram. Indication: CAD, status post CABG, non-STEMI. Procedure In Detail: The patient was brought to the lab director as an inpatient today, 12/03/2021, prep ped and draped in routine sterile fashion. Given Versed and fentanyl for sedation. A 6-[place] sheat h introduced in the right common femoral artery successfully. Common femoral artery angiogram was no rmal. Angio-Seal was used to close the case. Leeroy catheter left and right were used to cannulate the left main and right main respectively. The RCA was completely occluded. There was a small vess el. The left main was normal. Circumflex was large, dominant, normal. The LAD was totally occluded . JR4 cannulated the left internal mammary artery and that was widely open with excellent distal stephon w. There were no complications. Blood loss was 5 mL. Postoperative Diagnosis: Moderate coronary artery disease. Plan: Plan is for medical therapy. Anesthesia: Total conscious sedation 45 minutes. The patient will remain at bedrest for 2 hours after the procedure and he will go home after that. Javier erazo will see him in the office in 2 weeks. SANTIAGO/ELIUD Voice ID: [id number] Report ID: [id number]
[2021-12-03 13:25] VITALS: O2SAT 98
[2021-12-03] MEDS ORDERED: NA CHLORIDE 0.9% 1,000 ML IV SCH (14:00)
--- NOTE | 2021-12-03 15:06 | P.DS ---
Admission Date: 12/01/21 Discharge Date: 12/03/21 Disposition: ROUTINE DISCHARGE Discharge Condition: GOOD Reason for Admission: unstable angina Consultations: Cardiology - Dr. Carrillo Brief History of Present Illness: 71yo M, PMH: CAD s/p CABG & stents, COPD, HTN, remote h/o provoked PE Presents to ED due to chest pressure, associated with shortness of breath. Symptoms began this morning ~9am, as patient was walking back to bed from his bathroom. Had similar less severe episode ~1-2 months ago. Seen at [place] ER and discharged home. Patient denies any recent illness. Was in his usual state of health until this episode. 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 Continued to smoke up until a few days ago. Sees his brick machine operator in [place], had echo earlier this year and states brick machine operator didn't mention anything out of the ordinary. Denies any recent swelling in his legs EKG and initial troponin in the ED ok. CXR with mild CHF pattern. Hospital Course: Problem List NSTEMI CAD s/p CAD, CABG HTN HLD COPD Peripheral vascular disease remote h/o PE (provoked) Patient's troponins increased. Cardiology was consulted and patient underwent cardiac catheterization. He was noted to have mild-moderate coronary artery disease, no need for stenting / further intervention. Dr Carrillo recommended medical therapy /optimization. Restart aspirin 81mg, increase statin. Follow up with Cardiology in 2 weeks. Vital Signs/Physical Exam: Temp Pulse Resp BP Pulse Ox 97.6 F 64 18 120/84 99 12/03/21 13:19 12/03/21 13:19 12/03/21 13:19 12/03/21 13:19 12/03/21 12:00 Physical exam GEN: Alert, oriented, NAD HEENT: Normal conjunctiva, sclera anicteric CV: Regular rate and rhythm, +II/ systolic murmur Pulm: Nonlabored respirations on room air, clear to auscultation ABD: Soft, nontender, nondistended Neuro: Normal speech, normal affect Laboratory Data at Discharge: WBC 5.9 K/uL (4.3-10.9) D 12/02/21 03:56 Hgb 11.5 g/dL (13.6-17.9) L 12/02/21 03:56 Hct 33.9 % (39.6-49.0) L 12/02/21 03:56 Plt Count 151 K/uL (152-406) L 12/02/21 03:56 PT 12.7 SECONDS (9.5-12.5) H 11/30/21 11:05 INR 1.15 11/30/21 11:05 APTT 67.2 SECONDS (24.3-36.9) H 12/03/21 03:15 Sodium 140 mmol/L (136-145) 12/03/21 03:15 Potassium 3.9 mmol/L (3.5-5.1) 12/03/21 03:15 BUN 15 mg/dL (7-18) 12/03/21 03:15 Creatinine 1.82 mg/dL (0.55-1.3) H 12/03/21 03:15 Glucose 96 mg/dL (74-106) 12/03/21 03:15 Magnesium 2.1 mg/dL (1.8-2.4) 12/03/21 03:15 Total Bilirubin 0.4 mg/dL (0.2-1.0) 12/01/21 03:37 AST 29 U/L (15-37) 12/01/21 03:37 ALT 22 U/L (12-78) 12/01/21 03:37 Alkaline Phosphatase 106 U/L (45-117) 12/01/21 03:37 Home Medications: Carvedilol [Coreg] 25 mg PO BID 05/26/19 Clopidogrel Bisulfate [Plavix*] 75 mg PO DAILY 05/26/19 Docusate Sodium [Stool Softener] 250 mg PO PRN PRN 05/26/19 Enalapril [Vasotec*] 10 mg PO DAILY 05/26/19 Garlic 1 cap PO DAILY 05/26/19 Nitroglycerin [Nitrostat*] 0.4 mg SL PRN PRN 05/26/19 Pantoprazole [Protonix Tab*] 40 mg PO BID 05/26/19 cilostazoL [Cilostazol] 100 mg PO BID 05/26/19 Albuterol Sulfate [Proair Hfa] 2 puff IH TID PRN #1 hfa.aer.ad 05/27/19 Furosemide [Lasix*] 40 mg PO DAILY #30 tab 05/27/19 Multivit-Min/FA/Lycopen/Lutein [Centrum Silver Men Tablet] 1 tab PO DAILY Power To Sleep Pm 1 tab PO BEDTIME 11/30/21 Acetylcyst [Mucomyst 20% (for Tylenol toxicity)] 6 ml PO BID 2 Days #1 vial 12/03/21 Atorvastatin Calcium [Lipitor] 80 mg PO BEDTIME 30 Days #30 tablet 12/03/21 New Medications: Atorvastatin Calcium [Lipitor] 80 mg PO BEDTIME 30 Days #30 tablet Acetylcyst [Mucomyst 20% (for Tylenol toxicity)] 6 ml PO BID 2 Days #1 vial Physician Discharge Instructions: Patient's troponins increased. Cardiology was consulted and patient underwent cardiac catheterization. He was noted to have mild-moderate coronary artery disease, no need for stenting / further intervention. Dr Carrillo recommended medical therapy /optimization. Restart aspirin 81mg, increase statin. Follow up with Cardiology in 2 weeks. Diet: AHA Activity: Ad rommel Followup: Pipe Carrillo MD [ACTIVE - CAN ADMIT] - 1-2 Weeks (Call for appointment.) Bharati Kirk MD [COURTESY - CAN ADMIT] - 1 Week (Call for appointment.) Tamica Orta MD [Primary Care Provider] - 1 Week (Call for appointment.) Time spent managing pt's care (in minutes): 45
[2021-12-03 15:51] LABS: Potassium 4.6 mmol/L (3.5-5.1)
[2021-12-03 17:06] VITALS: BP 135/91; TEMP 97.2
--- NOTE | 2021-12-03 20:16 | PN ---
Date of Progress Note: 12/03/2021 Subjective: Seen by bedside. No further chest pain, status post coronary angiogram. Seems like his vein grafts are occluded and his LINDSEY is functional. Circumflex looks fine and the RCA is totally o ccluded. Review of Systems: No chest pain, shortness of breath, orthopnea, cough. No nausea, vomiting, diarrhea. All other syst ems reviewed and are negative. Physical Examination: Vital Signs: Reviewed. Head and Neck: Pupils are equal, reactive to light. Intact eye movements. No JVD. No cervical lym phadenopathy. Neck is supple. Thyroid is not enlarged. Lungs: Clear to auscultation bilaterally. No rhonchi, wheezing, or crackles. No accessory muscle u se. Heart: Regular rate and rhythm. No extra sounds. Abdomen: Soft, nontender. Bowel sounds positive. No organomegaly. No masses or hernia. No rigidi ty or rebound. Extremities: No clubbing or cyanosis. Intact pulses. Skin: No rash. Neurologic: Alert, awake, oriented x3. No acute focal deficits appreciated. Investigations: Labs were reviewed. Assessment And Recommendations: 1.Non-ST elevation myocardial infarction, status post coronary angiogram. He does have diffuse dise ase likely his vein grafts are occluded as they could not be found even with the root injection. WILKINS A is patent. Continue baby aspirin and beta-ryan. Plan to do an exercise nuclear stress test as an outpatient. If there is any reversible ischemia, then we will target that vessel. At this point, angiographically he has diffuse disease and it is very difficult to know the culprit vessel. So fro m Cardiology standpoint, the patient can be released today and follow up with me in the office within the next week. 2.Dyslipidemia. Continue Lipitor. 3.Hypertension. Blood pressure is controlled. Continue his medications including the Coreg. SR/MODL Voice ID: [id number] Report ID: [id number]
[2021-12-03] MEDS ORDERED: ACETYLCYST 20% 800 MG/4 ML VIAL PO SCH (21:00)
--- NOTE | 2021-12-04 00:31 | PN ---
Date of Progress Note: 12/03/2021 Chief Complaint: Acute on chronic kidney injury, cardiorenal syndrome, prerenal azotemia secondary t o acute coronary syndrome. Subjective: The patient had a cardiac catheterization done today. He received IV fluids and He was started on Mucomyst to prevent contrast-induced nephropathy. The patient apparently had a CT scan do ne, which did not show hydronephrosis, although there is some renal atrophy and renal Doppler did not show renal artery stenosis. The patient has a remote history of PE. The patient has a history of c oronary artery disease, status post CABG and history of stent, COPD. Review of Systems: The patient denies fever or chills. Objective: Lungs: Clear to auscultation bilaterally. Heart: S1 and S2. Abdomen: Soft, benign. Extremities: Slight edema. Impression And Plan: Acute on chronic kidney injury, mild prerenal azotemia. The patient has nonoli guric urine output. The patient has underlying chronic kidney disease stage IIIA. Continue to avoid nonsteroidal anti-inflammatory medication. The patient has coronary artery disease. He presented w ith severe chest pain, elevated troponin, non-ST elevation myocardial infarction. The patient underw ent cardiac catheterization. Continue IV fluids and avoid nonsteroidal anti-inflammatory medication. The patient will have a workup to rule out hyperkalemia related to contrast exposure. The patient has history of obstructive uropathy currently, but there is no hydronephrosis. There is persistent r enal atrophy, which is result of previous obstructive uropathy. The patient will continue beta-block er for congestive heart failure. Apparently, he will require IV fluids after contrast exposure. Renal artery Doppler did not show renal artery stenosis. Recommend follow up with Nephrology and Urology. EB/MODL Voice ID: [id number] Report ID: [id number]
--- NOTE | 2021-12-04 07:00 | ECHO ---
HEIGHT: 6 ft 1 in WEIGHT: 193 lb 0 oz DATE OF STUDY: 12/03/[address]: Satish Wallace MD 2-DIMENSIONAL: YES M.MODE: YES DOPPLER: YES COLOR FLOW: YES TDS: PORTABLE: YES DEFINITY: BUBBLE STUDY: DIAGNOSIS: NON ST ELEVATION MYOCARDIAL INFARCTION, EVALUATE FUNCTION CARDIAC HISTORY: CATHERIZATION: YES SURGERY: YES PROSTHETIC VALVE: NO PACEMAKER: YES MEASUREMENTS (cm) DIASTOLIC (NORMALS) SYSTOLIC (NORMALS) IVSd 1.1 (0.6-1.2) LA Diam 3.6 (1.9-4.0) LVEF 35-40% LVIDd 6.4 (3.5-5.7) LVIDs 5.4 (2.0-3.5) %FS 16% LVPWd 1.2 (0.6-1.2) Ao Diam 2.9 (2.0-3.7) 2 DIMENSIONAL ASSESSMENT: RIGHT ATRIUM: NORMAL LEFT ATRIUM: NORMAL RIGHT VENTRICLE: PACEMAKER WIRE LEFT VENTRICLE: DILATED TRICUSPID VALVE: MODERATE TRICUSPID REGURGITATION MITRAL VALVE: MILD MITRAL REGURGITATION PULMONIC VALVE: MILD PULMONIC INSUFFICIENCY AORTIC VALVE: MILD AORTIC INSUFFICIENCY PERICARDIAL EFFUSION: NONE AORTIC ROOT: NORMAL LEFT VENTRICULAR WALL MOTION: MODERATE GLOBAL HYPOKINESIS DOPPLER/COLOR FLOW: SEE BELOW COMMENTS: MODERATELY DEPRESSED LEFT VENTRICULAR EJECTION FRACTION 35-40%. MODERATE GLOBAL HYPOKINESIS. MILDLY DILATED LEFT VENTRICLE. MILD MITRAL REGURGITATION, MILD AORTIC INSUFFICIENCY, MILD PULMONIC INSUFFICIENCY. MODERATE TRICUSPID REGURGITATION. PULMONARY HYPERTENSION WITH RIGHT VENTRICULAR SYSTOLIC PRESSURE OF 45 mmHg PLUS RIGHT ATRIAL PRESSURE. TECHNOLOGIST: POLO BARONE
== END 2021-12-03 17:35 | disposition home or self-care (01) | DRG 281 ==
LOC: ER 10:27 → ERHOLD 15:26 → 4TH 20:27 → OBSVTOIN 12-01 19:48
PROVIDERS: ADMIT Hospitalist; ATTEND Hospitalist
PROC: B2011ZZ Plain Radiography of Multiple Coronary Arteries using Low Osmolar Contrast (ICD-10-PCS; principal; 2021-12-03)
DX: I21.4 Non-ST elevation (NSTEMI) myocardial infarction (principal); I13.0 Hypertensive heart and chronic kidney disease with heart failure and stage 1 through stage 4 chronic kidney disease, or unspecified chronic kidney disease; N17.9 Acute kidney failure, unspecified; I25.10 Atherosclerotic heart disease of native coronary artery without angina pectoris; J44.9 Chronic obstructive pulmonary disease, unspecified; E78.5 Hyperlipidemia, unspecified; N18.31 Chronic kidney disease, stage 3a; I50.9 Heart failure, unspecified; N13.9 Obstructive and reflux uropathy, unspecified; R79.89 Other specified abnormal findings of blood chemistry; F17.210 Nicotine dependence, cigarettes, uncomplicated; Z86.711 Personal history of pulmonary embolism; Z95.1 Presence of aortocoronary bypass graft; Z95.810 Presence of automatic (implantable) cardiac defibrillator; Z95.5 Presence of coronary angioplasty implant and graft; Z20.822 Contact with and (suspected) exposure to COVID-19
CPT/HCPCS: 36415; 71045; 71250; 74176; 76770; 80048; 80053; 83735; 83880; 84132; 84439; 84443; 84484; 85025; 85027; 85610; 85730; 93005; 93306; 93455; 93975; 94760; 96374; 99285; C1760; C1893; G0269; G0378; J0583; J1644; J1940; J2250; J3010; J3475; J7030; J7040; Q9967; U0003

== ENCOUNTER 2022-07-25 06:54 | Day surgery (SDC) | payer OTHER ==
[2022-07-25] MEDS ORDERED: Ringers Lactate 1,000 ML IV ONE (07:09)
[2022-07-25] MEDS ORDERED: propofoL 200 MG/20 ML VIAL IV ONE (09:06)
[2022-07-25] MEDS ORDERED: MIDAZOLAM HCL 2 MG/2 ML INJ ONE (09:06)
[2022-07-25] MEDS ORDERED: LIDOCAINE 2% MPF 5 ML VIAL ONE (09:07)
[2022-07-25] MEDS ORDERED: FENTANYL CITR 250 MCG/5 ML ONE (09:07)
[2022-07-25] MEDS ORDERED: ROCURONIUM 50 MG/5 ML VIAL IV ONE (09:07)
[2022-07-25] MEDS ORDERED: dexAMETHasone 10 MG/ML VIAL ONE (09:07)
[2022-07-25] MEDS ORDERED: ONDANSETRON 4 MG/2 ML VIAL ONE (09:13)
[2022-07-25] MEDS: CEFAZOLIN SODIUM 1 GM/VIAL ONE ×2 (09:55→10:05)
[2022-07-25] MEDS: LIDOCAINE 1% W/EPI 1:100,000 50 ML MDV ONE ×2 (10:00→10:08)
[2022-07-25] MEDS ORDERED: EPHEDRINE SULF 50 MG/ML VIAL ONE (10:15)
[2022-07-25] MEDS ORDERED: GLYCOPYRROLATE 0.2 MG/ML SYR ONE (10:36)
[2022-07-25] MEDS ORDERED: Phenylephrine HCl 10 MG/ML 1 ML VIAL ONE (10:36)
[2022-07-25] MEDS ORDERED: Mastisol Adhesive Liq ONE (13:30)
[2022-07-25 14:42] VITALS: BP 132/77; O2SAT 100
[2022-07-25] MEDS ORDERED: CODEINE 30MG/APAP 300MG TAB ONE (14:58)
[2022-07-25 15:25] VITALS: TEMP 97
--- NOTE | 2022-07-29 21:05 | OP ---
Date of Procedure: 07/25/2022 Surgeon: ANGEL KEENAN Preoperative Diagnoses: 1.Primary hyperparathyroidism. 2.Hypercalcemia. Postoperative Diagnoses: 1.Primary hyperparathyroidism. 2.Hypercalcemia. Procedures: 1.Right inferior lobe parathyroidectomy with the use of gamma-probe localization. 2.Recurrent laryngeal nerve monitoring. Anesthesia: General endotracheal anesthesia was administered. I also infiltrated approximately 10 m L of 1% lidocaine with 1:100,000 epinephrine at the incision site. Estimated Blood Loss: Less than 5 mL. Specimens: Right inferior lobe parathyroid was removed and sent to pathology for evaluation. Findings: Enlarged right inferior lobe parathyroid gland. 3 other glands were located in bilateral upper poles and left inferior lobe pole and I did not detect any abnormalities. We also used a gamma probe localization as done per [facility] protocol and all areas were scanned and wer e normal with the exception of the area of the right inferior lobe. Complications: None. Disposition: Stable. The patient tolerated the procedure well. Indication For Procedure: Patient is a pleasant 72-year-old male who presented to my outpatient clin ic with hyperparathyroidism with intact PTH, borderline high calcium. Patient was asymptomatic, but due to his chronic kidney disease, we felt like it was necessary to take him to surgery to locate the culprit gland. Imaging: CT scan of the neck demonstrated an area in the right inferior lobe, which could be an enla rged parathyroid gland. Sestamibi scan was inconclusive. No evidence of uptake. Risks versus benef its and complications were discussed in detail and a consent form signed, which placed in the chart. Description Of Procedure: Patient was transferred from the preoperative holding area to the operativ e suite by Department of Anesthesia, placed on the operative table supine, sedated, and intubated in normal fashion. Patient was injected with approximately 25 mCi of technetium-99m approximately 45 mi nutes before patient was sedated. Once the patient was sedated, I was then able to run the gamma pro be over bilateral superior and inferior lobes and then generally throughout the thyroid gland and a b ackground count was taken, which was averaging anywhere between 300-450 count and then there was an a rut in the right inferior lobe, which jumped up to 700-800 count and this was the area that was marke d as the culprit area. I then infiltrated approximately 10 mL of 1% lidocaine with 1:100,000 epineph rine at the incision site and the patient was sterilely prepped and draped. Patient was intubated with a NIMS tube third generation and the cuff was inflated adequately and the grounding electrodes were placed on the left shoulder and the monitoring system was calibrated adequa tely. An incision was made approximately 2 cm above the sternal notch in a skin crease through the epidermi s down to the subplatysmal level with a #15 blade scalpel. I then cauterized any bleeding edges with monopolar electrocautery on the 20 setting. Once down to the level of the strap muscles, I divided the straps midline with a ligature and then I was able to retract the inferior lobe of the right thyr oid lobe with Dante forceps. I then tested this area with the gamma probe and we were getting coun ts close to 1000. Once I was able to retract the posterior edge of the right inferior lobe, I was ab le to see what appeared to be an enlarged parathyroid gland and we tested again with the gamma probe and the counts were over 1000. This lesion was removed with the ligature and then there was little t o no bleeding after removal. I then again tested ex vivo with the gamma probe and again the counts w ere in the 800 range. I then tested all of the other areas and we were getting normal background cou nts of approximately 300. The specimen was handed off the field and sent to pathology for evaluation . I then had anesthesia draw intraoperative PTH specimen and this was sent to the laboratory for wor kup. I then examined bilateral upper poles and left inferior pole and did not see the abnormalities. I also alternated this with the gamma probe, checking to make sure that there were any other suspec t glands and we were getting all background count numbers of between 300 and 400. I saw the right in ferior recurrent laryngeal nerve and this was stimulated and working appropriately. I did not detect any abnormalities. Preoperative PTH was 130, and we were able to obtain intraoperative intact PTH a nd it dropped to 76, which was approximately 42% lower than the preoperative level. At this point, I felt like the surgery was a success. Thus, I irrigated the wound bed and all areas were checked for hemostasis and hemostasis was achieved with monopolar electrocautery. I then placed Avitene into th e wound bed and then I reapproximated the strap with one 3-0 Vicryl suture in the midline and then re approximated the platysma muscle and the subcutaneous tissue with 3-0 Vicryl in a simple interrupted fashion. I then reapproximated the epidermis with 4-0 Monocryl in a continuous running subcuticular fashion and the suture tails were adhered to the neck with Steri-Strips. Antibiotic ointment, Steri- Strips were placed as well as a compressive dressing. The drain was not needed. He tolerated the procedure well and will be discharged home on antibiotic and analgesic medication an d will follow up in 4 days for wound check. We will also obtain a postoperative intact PTH and calci um at that time. EVELYNE/ZEYADL Voice ID: [id number] Report ID: [id number]
== END 2022-07-25 15:23 | disposition home or self-care (01) ==
LOC: OR 06:54
PROVIDERS: ATTEND Otolaryngology Facial Plastic Surgery
PROC: 0GBH0ZX Excision of Right Thyroid Gland Lobe, Open Approach, Diagnostic (ICD-10-PCS; principal; 2022-07-25 09:00)
DX: E21.0 Primary hyperparathyroidism (principal)
CPT/HCPCS: 36415; 88331; 88305; 88333; 83970 ×2; 60500; J2704; J2370; J2001; J2250; J3010; J1100; J7120; J2405; J0690

== ENCOUNTER 2023-11-19 07:59 | Emergency (ER) | payer MEDICARE, OTHER ==
--- OUTSIDE RECORDS SUMMARY | 2023-11-19 08:02 | XMS REPORT | Continuity of Care Document ---
Author Name Unknown Address [address] [facility]. [place] [place] [address] [facility] [address] [facility] [place] [place] [address] Care Team Providers Care Director [facility] Name Role Phone Tamica Orta Attending Clinician Unavailable Tk Saul Attending Clinician [phone] Encounters Start Date/Time End Date/Time Encounter Type Admission Type Attending Clinicians Care Facility Care Department Encounter ID Source 2023-10-22 13:52:00 Out[facility] [id number] [facility] 2023-10-20 09:42:01 Outpatient Orta, Tamica [facility] [id number] [facility] 2023-08-06 13:12:00 Outpatient Chris [facility]i [facility] [id number] [facility] 2023-06-05 09:19:00 Outpatient Makayla Ortahani [facility] [id number] [facility] 2023-05-27 14:49:00 Outpatient Orta, Tamica [facility] [id number] [facility] 2023-05-05 11:42:01 Outpatient Orta, Tamica [facility] [id number] [facility] 2023-04-30 10:02:00 Outpatient Orta, Tamica [facility] [id number] [facility] 2022-11-20 13:51:00 Outpatient Orta, Tamica [facility] [id number] [facility] 2022-09-13 12:39:00 Outpatient Orta, Tamica [facility] [id number] [facility] 2022-09-11 08:17:00 Outpatient Orta, Tamica [facility] [id number] [facility] 2022-05-21 13:06:03 Outpatient Orta, Tamica [facility] [id number] [facility] 2022-05-20 10:23:03 Outpatient Orta, Tamica [facility] [id number] [facility] 2022-03-21 09:47:02 Outpatient Orta, Tamica [facility] [id number] [facility] 2021-12-17 14:16:02 Outpatient Orta, Tamica [facility] [id number] [facility] 2021-09-11 13:09:03 Outpatient Orta, Tamica [facility] [id number] [facility] 2021-09-10 13:58:03 Outpatient Orta, Tamica [facility] [id number] [facility] 2021-09-03 13:45:03 Outpatient Orta, Tamica [facility] [id number] [facility] 2021-08-21 08:27:02 Outpatient Orta, Tamica [facility] [id number] [facility] 2021-08-13 12:49:01 Outpatient Orta, Tamica [facility] [id number] [facility] 2021-08-03 09:08:02 Outpatient Orta, Tamica [facility] [id number] [facility] 2023-08-27 21:00:00 2023-08-27 22:00:00 Initial D2Me Tk Saul [id number] J6Y [facility]
--- NOTE | 2023-11-19 08:50 | RAD REPORT ---
EXAM DESCRIPTION: RAD - Chest Pa And Lat (2 Views) - 11/19/2023 8:44 am CLINICAL HISTORY: COUGH Chest pain. COMPARISON: Chest Single View dated 11/30/2021; Chest Pa And Lat (2 Views) dated 07/27/2019; Chest Pa And Lat (2 Views) dated 05/27/2019; Chest Pa And Lat (2 Views) dated 05/26/2019 FINDINGS: Mild interstitial pulmonary edema. The heart is mildly enlarged with a single lead pacer/d efibrillator device. Trace bilateral pleural fluid. Sternotomy wires present. IMPRESSION: Mild CHF versus volume overload pattern.
[2023-11-19 08:57] LABS: SARS-CoV-2 Antigen CONTROL BLUE LINE VIS/BG OK; SARS-CoV-2 Antigen Rapid Res Negative (Negative)
--- NOTE | 2023-11-19 09:45 | EDPHYS ---
Physician Documentation [facility] Name: Shaun Yan Age: 73 yrs Sex: Male : 1950 Arrival Date: 11/19/2023 Time: 07:59 Bed 12 Private MD: ED Physician Niko Wallace HPI: 11/18 09:41 This 73 yrs old Black Male presents to ER via Ambulatory with complaints of Flu rn Symptoms. 09:41 The patient or guardian reports cough. Onset: The symptoms/episode began/occurred 3 rn day(s) ago. Severity of symptoms: At their worst the symptoms were mild, in the emergency department the symptoms are unchanged. Modifying factors: The symptoms are alleviated by nothing, the symptoms are aggravated by nothing. Associated signs and symptoms: Pertinent positives: rhinorrhea, sore throat, Pertinent negatives: chest pain. The patient has not experienced similar symptoms in the past. Patient reports a few days of feeling sick. Reports his brother was sick with upper respiratory infection and was seen here. He took a trip with him in a vehicle and now he is sick. Reports runny nose and cough. No shortness of breath. No swelling.. Historical: - Allergies: 08:28 No Known Allergies; ap3 - PMHx: 08:28 Aneurysm; around left kidney; CAD; COPD; Hypercholesterolemia; Hypertension; Myocardial ap3 infarction; PE; - PSHx: 08:28 Coronary artery bypass graft; left knee; ap3 - Immunization history:: Client reports receiving the 2nd dose of the Covid vaccine. - Infectious Disease History:: Denies. - Social history:: Smoking status: Patient/guardian denies using tobacco. - Family history:: not pertinent. - Hospitalizations: : No recent hospitalization is reported. ROS: 09:41 Constitutional: Negative for weight loss ENT: Positive for runny nose and cough charge rn: Negative for chest pain, palpitations, and edema, Respiratory: Positive for cough Abdomen/GI: Negative for abdominal pain, nausea, vomiting, diarrhea, and constipation, MS/Extremity: Negative for injury and deformity, Skin: Negative for injury, rash, and discoloration, Neuro: Negative for headache, weakness, numbness, tingling, and seizure, Exam: 09:41 Constitutional: This is a well developed, well nourished patient who is awake, alert, rn and in no acute distress. ENT: Mild pharyngeal erythema. No stridor Cardiovascular: Regular rate and rhythm. No pulse deficits. Respiratory: No increased work of breathing, no retractions or nasal flaring. Abdomen/GI: Soft, non-tender Neuro: Awake and alert, GCS 15 Vital Signs: 08:26 BP 114 / 72; Pulse 84; Resp 19; Temp 97.8; Pulse Ox 99% ; ap3 MDM: 08:03 Patient medically screened. rn 09:41 Differential Diagnosis: Bronchitis Influenza Upper Respiratory Infection Sinusitis rn Pharyngitis Viral Syndrome Pneumonia. Data reviewed: vital signs, nurses notes, lab test result(s), radiologic studies, plain films, and as a result, I will discharge patient. Counseling: I had a detailed discussion with the patient and/or guardian regarding the historical points, exam findings, and any diagnostic results supporting the discharge/admit diagnosis, lab results, radiology results, the need for outpatient follow up, to return to the emergency department if symptoms worsen or persist or if there are any questions or concerns that arise at home. Special discussion: I discussed with the patient/guardian in detail that at this point there is no indication for admission to the hospital. It is understood, however, that if the symptoms persist or worsen the patient needs to return immediately for re-evaluation. 11/18 08:29 Order name: Flu; Complete Time: 09:29 ap3 11/18 08:29 Order name: SARS RAPID; Complete Time: 09:04 ap3 11/18 08:29 Order name: XRAY Chest Pa And Lat (2 Views); Complete Time: 09:04 rn Administered Medications: No medications were administered Disposition Summary: 11/19/23 09:44 Discharge Ordered Notes: Location: Home rn Problem: new rn Symptoms: are unchanged rn Condition: Stable rn Diagnosis - Cough rn Followup: rn - With: Private Physician - When: As needed - Reason: Recheck today's complaints, Re-evaluation by your physician Discharge Instructions: - Discharge Summary Sheet rn - Cough, Adult rn Forms: - Medication Reconciliation Form rn - 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 Day 2, 3, 4 , 5 take one (1) tablet once daily.; 6 tablet; Refills: 0, Product Selection Permitted Signatures: Dispatcher [employer] Niko Juarez MD MD rn Prokisch, Amanda, RN RN ap3
--- NOTE | 2023-11-19 09:45 | ER ---
Nurse's Notes [facility] Name: Shaun Yan Age: 73 yrs Sex: Male : 1950 Arrival Date: 11/19/2023 Time: 07:59 Bed 12 Private MD: Diagnosis: Cough Presentation: 11/18 08:26 Chief complaint: Patient states: he has been having cough and congestion for a week ap3 after visiting his brother. patient reports over the counter medication has not been helping. Coronavirus screen: Client presents with at least one sign or symptom that may indicate coronavirus-19. Ebola Screen: No symptoms or risks identified at this time. Initial Sepsis Screen: Does the patient meet any 2 criteria? No. Patient's initial sepsis screen is negative. Does the patient have a suspected source of infection? No. Patient's initial sepsis screen is negative. Risk Assessment: Do you want to hurt yourself or someone else? Patient reports no desire to harm self or others. Onset of symptoms was November 12, 2023. 08:26 Method Of Arrival: Ambulatory ap3 08:26 Acuity: CUATE 4 ap3 Triage Assessment: 08:28 General: Appears in no apparent distress. Behavior is calm, cooperative, appropriate ap3 for age. Pain: Denies pain. Neuro: Level of Consciousness is awake, alert, obeys commands, Oriented to person, place, time, situation, Appropriate for age. Cardiovascular: Patient's skin is warm and dry. Respiratory: Reports shortness of breath on exertion cough that is Airway is patent Respiratory effort is even, unlabored, Respiratory pattern is regular, symmetrical. Historical: - Allergies: 08:28 No Known Allergies; ap3 - PMHx: 08:28 Aneurysm; around left kidney; CAD; COPD; Hypercholesterolemia; Hypertension; Myocardial ap3 infarction; PE; - PSHx: 08:28 Coronary artery bypass graft; left knee; ap3 - Immunization history:: Client reports receiving the 2nd dose of the Covid vaccine. - Infectious Disease History:: Denies. - Social history:: Smoking status: Patient/guardian denies using tobacco. - Family history:: not pertinent. - Hospitalizations: : No recent hospitalization is reported. Screenin:29 Abuse screen: Denies threats or abuse. Nutritional screening: No deficits noted. ap3 Tuberculosis screening: No symptoms or risk factors identified. 09:57 [facility] ED Fall Risk Assessment (Adult) History of falling in the last 3 months, ap3 including since admission No falls in past 3 months (0 pts) Confusion or Disorientation No (0 pts) Intoxicated or Sedated No (0 pts) Impaired Gait No (0 pts) Mobility Assist Device Used No (0 pt) Altered Elimination No (0 pt) Score/Fall Risk Level 0 - 2 = Low Risk Oriented to surroundings, Maintained a safe environment, Educated pt \T\ family on fall prevention, incl call for assistance when getting out of bed, Assessed \T\ reinforced patient's understanding of fall precautions, Provided non-skid footwear, Hourly rounding (assess needs \T\ fall precautionary measures) done, Used ambulatory aids as needed (educated on \T\ assisted with), Used gait belt as appropriate. Vital Signs: 08:26 BP 114 / 72; Pulse 84; Resp 19; Temp 97.8; Pulse Ox 99% ; ap3 ED Course: 08:02 Patient arrived in ED. im 08:03 Niko Wallace MD is Attending Physician. rn 08:28 Triage completed. ap3 08:29 Arm band placed on right wrist. ap3 08:29 Patient has correct armband on for positive identification. Bed in low position. Call ap3 light in reach. Side rails up X 1. Provided Education on:. 08:46 XRAY Chest Pa And Lat (2 Views) In Process Unspecified. EDMS 09:55 No provider procedures requiring assistance completed. Patient did not have IV access ap3 during this emergency room visit. Administered Medications: No medications were administered Medication: 09:57 VIS not applicable for this client. ap3 Outcome: 09:44 Discharge ordered by . rn 09:56 Discharged to home ambulatory, ap3 09:56 Condition: good 09:56 Discharge instructions given to patient, Instructed on discharge instructions, follow up and referral plans. Demonstrated understanding of instructions, follow-up care, 09:58 Patient left the ED. ap3 Signatures: Dispatcher [employer] EDMS Niko Wallace MD MD rn Prokisch, Amanda, RN RN ap3 Leonarda Dailey im
[2023-11-19 10:27] VITALS: BP 114/72; TEMP 97.8; O2SAT 99
== END 2023-11-19 09:58 | disposition home or self-care (01) ==
LOC: ER 07:59
DX: R05.9 Cough, unspecified (principal); I10 Essential (primary) hypertension; J44.9 Chronic obstructive pulmonary disease, unspecified; E78.00 Pure hypercholesterolemia, unspecified; Z11.52 Encounter for screening for COVID-19
CPT/HCPCS: 36415; 71046; 87804; 87811; 99282

== ENCOUNTER 2024-08-11 16:42 | Inpatient (IN) | payer MEDICARE, OTHER ==
--- OUTSIDE RECORDS SUMMARY | 2024-08-11 16:45 | XMS REPORT | Continuity of Care Document ---
Author Name Unknown Address [address] [facility]. [place] [place] [address] [facility] [address] [facility] [place] [place] [address] Care Team Providers Care Senior Case Manager Name Role Phone Tamica Orta Attending Clinician Unavailable Tk Sual Attending Clinician [phone] Encounters Start Date/Time End Date/Time Encounter Type Admission Type Attending Clinicians Care Facility Care Department Encounter ID Source 2023-10-22 13:52:00 Outpatient [facility] [id number] [facility] 2023-10-20 09:42:01 Outpatient Orta, Tamica [facility] [id number] [facility] 2023-08-06 13:12:00 Outpatient Chris Ortai [facility] [id number] [facility] 2023-06-05 09:19:00 Outpatient Makayla Ortahani [facility] [id number] [facility] 2023-05-27 14:49:00 Outpatient Orta, Tamica [facility] [id number] [facility] 2023-05-05 11:42:01 Outpatient Orta, Tamica [facility] [id number] [facility] 2023-04-30 10:02:00 Outpatient Orta, Tamica [facility] [id number] [facility] 2022-11-20 13:51:00 Outpatient Orta, Tamica [facility] [id number] [facility] 2022-09-13 12:39:00 Outpatient Orta, Tamica [facility] [id number] [facility] 2022-09-11 08:17:00 Outpatient Orta, Tamica [facility] [id number] [facility] 2022-05-21 13:06:03 Outpatient Orta, Tamica [facility] [id number] [facility] 2022-05-20 10:23:03 Outpatient Orta, Tamica [facility] [id number] [facility] 2022-03-21 09:47:02 Outpatient Orta, Tamica [facility] [id number] [facility] 2021-12-17 14:16:02 Outpatient Orta, Tamica [facility] [id number] [facility] 2021-09-11 13:09:03 Outpatient Orta, Tamica [facility] [id number] [facility] 2021-09-10 13:58:03 Outpatient Orta, Tamica [facility] [id number] [facility] 2021-09-03 13:45:03 Outpatient Orta, Tamica [facility] [id number] [facility] 2021-08-21 08:27:02 Outpatient Orta, Tamica [facility] [id number] [facility] 2021-08-13 12:49:01 Outpatient Orta, Tamica [facility] [id number] [facility] 2021-08-03 09:08:02 Outpatient Orta, Tamica [facility] [id number] [facility] 2023-08-27 21:00:00 2023-08-27 22:00:00 Initial D2Me Tk Saul [id number] J6Y [facility]
[2024-08-11 17:28] LABS: Absolute Eosinophils 0.1 K/uL (0-0.5); Absolute Lymphocytes (CBC) 1.7 K/uL (0.7-4.9); Absolute Monocytes 0.4 K/uL (0.1-1.3); Absolute Neutrophil 3.4 K/uL (1.8-8.0); Basophils % 0.6 % (0-1.3); Eosinophils % 1.4 % (0-4.4); Hematocrit 36.7 % (39.6-49.0); Hemoglobin 12.1 g/dL (13.6-17.9); Lymphocytes % 29.8 % (15.3-44.8); MCH 28.7 pg (27.0-35.0); MPV 9.3 fL (7.6-11.3); Monocytes % 7.5 % (3.3-12.3); Neutrophils % 60.7 % (41.7-73.7); Nucleated Red Blood Cells % 0.1 % (0-0); Platelets 167 thou/uL (152-406); RBC Red Blood Cell Count 4.22 M/uL (4.33-5.43); Red Cell Distribution Width 15.9 % (12.1-15.2)
[2024-08-11 17:39] LABS: Albumin 3.2 g/dL (3.4-5.0); Albumin/Globulin Ratio 0.9 (1.1-1.8); Bilirubin Direct 0.3 mg/dL (0-0.2); Bilirubin Indirect, Calculated 0.6 mg/dL (0.2-0.8); Bilirubin Total 0.9 mg/dL (0.2-1.0); Globulin 3.6 g/dL (2.3-3.5); Magnesium 1.9 mg/dL (1.6-2.4); Protein, Total 6.8 g/dL (6.4-8.2); Troponin High Sensitivity 55.1 pg/mL (<58.9)
--- NOTE | 2024-08-11 17:56 | RAD REPORT ---
EXAM: Chest Single View HISTORY: 74 years Male CHEST PAIN COMPARISON: 01/19/2024 FINDINGS: LUNGS/PLEURA: Increased pulmonary vascular prominence. CARDIAC/MEDIASTINUM: Moderate cardiomegaly. UPPER ABDOMEN: No significant abnormality. BONES: Sternotomy. No acute abnormality. LINES/TUBES/OTHER: AICD IMPRESSION: Pulmonary edema.
--- NOTE | 2024-08-11 18:49 | EDPHYS ---
Physician Documentation [facility] Name: Shaun Yan Age: 74 yrs Sex: Male : 1950 Arrival Date: 08/11/2024 Time: 16:42 Bed 13 Private MD: ED Physician Austin Urban HPI: 08/11 17:03 This 74 yrs old Black Male presents to ER via Ambulatory with complaints of Chest Pain, kb Shortness Of Breath. 17:03 Pt is a 74 year old male who presents for chest tightness and shortness of breath that kb started Friday. Denies n/v. Dyspnea worse on exertion. Reports lightheadedness intermittently. Historical: - Allergies: 16:58 No Known Allergies; cm10 - PMHx: 16:58 Aneurysm; around left kidney; CAD; COPD; Hypercholesterolemia; Hypertension; Myocardial cm10 infarction; PE; - PSHx: 16:58 Coronary artery bypass graft; left knee; Pacemaker/ Defibrilator; cm10 - Immunization history:: Adult Immunizations up to date. - Infectious Disease History:: Denies. - Social history:: Smoking status: Patient/guardian denies using tobacco, Stopped _ months ago 1. ROS: 17:02 Constitutional: As per HPI kb Exam: 17:03 Constitutional: This is a well developed, well nourished patient who is awake, alert, kb and in no acute distress. Head/Face: Normocephalic, atraumatic. ENT: Moist Mucous membranes Cardiovascular: Regular rate Abdomen/GI: Soft, non-tender. No distention Skin: Warm, dry with normal turgor. Normal color. MS/ Extremity: Pulses equal, no cyanosis. Neurovascular intact. Full, normal range of motion. Neuro: Awake and alert, GCS 15, oriented to person, place, time, and situation. 17:03 Respiratory: the patient does not display signs of respiratory distress, Respirations: labored breathing, that is mild, Breath sounds: are clear throughout, 17:05 ECG was reviewed by the Attending Physician. kb Vital Signs: 16:55 BP 114 / 80; Pulse 65; Resp 22; Temp 97.5(O); Pulse Ox 97% on R/A; Weight 82.1 kg; cm10 Height 6 ft. 1 in. ; Pain 3/10; 20:59 BP 121 / 92; Pulse 73; Resp 17; Temp 98.4; Pulse Ox 97% on R/A; dd2 16:55 Body Mass Index 23.88 (82.10 kg, 185.42 cm) cm10 16:55 Pain Scale: Adult cm10 [place] Coma Score: 19:50 Eye Response: spontaneous(4). Motor Response: obeys commands(6). Verbal Response: dd2 oriented(5). Total: 15. MDM: 16:58 Medical Screening Exam initiated kb 18:46 Differential diagnosis: Arrhythmia, acute MO, CHF, COPD. Data reviewed: vital signs, kb nurses notes. Consideration of Admission/Observation Patient was admitted/placed on observation. Escalation of care including admission/observation considered. Management of patient was discussed with the following: Hospitalist: Dr Paul accepts pt for admission. Counseling: I had a detailed discussion with the patient and/or guardian regarding the historical points, exam findings, and any diagnostic results supporting the discharge/admit diagnosis, lab results, radiology results, the need for further work-up and treatment in the hospital. 18:49 Care significantly affected by the following chronic conditions: Hypertension, Chronic kb Obstructive Pulmonary Disease. 08/11 16:59 Order name: Basic Metabolic Panel; Complete Time: 17:42 kb 08/11 16:59 Order name: CBC with Diff; Complete Time: 17:29 kb 08/11 16:59 Order name: LFT's; Complete Time: 17:42 kb 08/11 16:59 Order name: Magnesium; Complete Time: 17:42 kb 08/11 16:59 Order name: NT PRO-BNP; Complete Time: 17:42 kb 08/11 16:59 Order name: Troponin HS; Complete Time: 17:42 kb 08/11 20:09 Order name: Basic Metabolic Panel EDMS 08/11 20:09 Order name: CBC with Automated Diff EDMS 08/11 20:09 Order name: Lipid Profile EDMS 08/11 20:09 Order name: Lipid Profile; Complete Time: 21:38 EDMS 08/11 20:09 Order name: Troponin High Sensitivity; Complete Time: 21:38 EDMS 08/11 20:23 Order name: High Sensitivity-CRP EDMS 08/11 16:59 Order name: XRAY Chest (1 view); Complete Time: 18:05 kb 08/11 20:09 Order name: Echo with Doppler EDMS 08/11 16:59 Order name: EKG; Complete Time: 16:59 kb 08/11 20:09 Order name: CONS Physician Consult EDOH 08/11 20:09 Order name: EKG Electrocardiogram EDOH 08/11 20:09 Order name: EKG Electrocardiogram EDOH 08/11 20:09 Order name: EKG Electrocardiogram EDOH 08/11 16:59 Order name: Cardiac monitoring; Complete Time: 19:38 kb 08/11 16:59 Order name: EKG - Nurse/Tech; Complete Time: 17:00 kb 08/11 16:59 Order name: IV Saline Lock; Complete Time: 17:13 kb 08/11 16:59 Order name: Labs collected and sent; Complete Time: 19:38 kb 08/11 16:59 Order name: O2 Per Protocol; Complete Time: 19:38 kb 08/11 16:59 Order name: O2 Sat Monitoring; Complete Time: 19:38 kb EC:05 Rate is 71 beats/min. Rhythm is irregularly irregular. QRS [place] is Normal. QRS interval kb is normal at 138 msec. QT interval is normal at 499 msec. Administered Medications: 20:55 Drug: Aspirin PO Chewable Tablet 324 mg PO once; 81 mg tablets x 4 Route: PO; dd2 20:55 Drug: Furosemide IVP 40 mg IVP once; give over 2 minutes Route: IVP; Site: left dd2 antecubital; Disposition Summary: 08/11/24 18:48 Hospitalization Ordered Notes: Hospitalization Status: Observation kb Provider: Negra Paul Location: Telemetry/MedSurg (observation) kb Condition: Stable kb Problem: new kb Symptoms: are unchanged kb Bed/Room Type: Standard Room Assignment: 413(08/11/24 20:11) rv1 Diagnosis - Acute pulmonary edema kb - Unspecified atrial fibrillation kb - Chest pain, unspecified kb Forms: - Medication Reconciliation Form kb - SBAR form kb - Leadership Thank You Letter kb Signatures: Dispatcher [employer] [facility] Annalise Yan FNP-C FNP-Kierra Castrejon rv1 Tia Bear, RN RN cm10 SILVESTRE CARBALLO RN RN dd2 Corrections: (The following items were deleted from the chart) 17:05 17:03 Pt is a 74 year old male who presents for chest tightness and shortness of breath kb that started Friday. Denies n/v. Dyspnea worse on exertion. kb 20:11 18:48 kb rv1
--- NOTE | 2024-08-11 18:49 | ER ---
Nurse's Notes [facility] Name: Shaun Yan Age: 74 yrs Sex: Male : 1950 Arrival Date: 08/11/2024 Time: 16:42 Bed 13 Private MD: Diagnosis: Acute pulmonary edema;Unspecified atrial fibrillation;Chest pain, unspecified Presentation: 08/11 16:55 Chief complaint: Patient states: Chest pain and shortness of breath onset Friday. Pt cm10 states that his chest pain is to the center of his chest and he describes it as tightness. pt states that he took a nitro yesterday with some relief. Coronavirus screen: Client denies travel out of the [place] in the last 14 days. Ebola Screen: Patient denies travel to an Ebola-affected area in the 21 days before illness onset. Initial Sepsis Screen: Does the patient meet any 2 criteria? RR > 20 per min. Does the patient have a suspected source of infection? No. Patient's initial sepsis screen is negative. Risk Assessment: Do you want to hurt yourself or someone else? Patient reports no desire to harm self or others. Onset of symptoms was August 11, 2024. 16:55 Method Of Arrival: Ambulatory cm10 16:55 Acuity: CUATE 2 cm10 Triage Assessment: 16:59 General: Appears uncomfortable, Behavior is calm, cooperative. Pain: Complains of pain cm10 in chest Pain does not radiate. Pain currently is 3 out of 10 on a pain scale. Quality of pain is described as Tightness. Neuro: No deficits noted. Level of Consciousness is awake, alert, obeys commands, Oriented to person, place, time, situation, Appropriate for age. Respiratory: No deficits noted. Airway is patent Respiratory effort is even, unlabored, Respiratory pattern is regular, symmetrical. Historical: - Allergies: 16:58 No Known Allergies; cm10 - PMHx: 16:58 Aneurysm; around left kidney; CAD; COPD; Hypercholesterolemia; Hypertension; Myocardial cm10 infarction; PE; - PSHx: 16:58 Coronary artery bypass graft; left knee; Pacemaker/ Defibrilator; cm10 - Immunization history:: Adult Immunizations up to date. - Infectious Disease History:: Denies. - Social history:: Smoking status: Patient/guardian denies using tobacco, Stopped _ months ago 1. Screenin:50 [facility] ED Fall Risk Assessment (Adult) History of falling in the last 3 months, dd2 including since admission No falls in past 3 months (0 pts) Confusion or Disorientation No (0 pts) Intoxicated or Sedated No (0 pts) Impaired Gait No (0 pts) Mobility Assist Device Used No (0 pt) Altered Elimination No (0 pt) Score/Fall Risk Level 0 - 2 = Low Risk Oriented to surroundings, Maintained a safe environment, Educated pt \T\ family on fall prevention, incl call for assistance when getting out of bed, Assessed \T\ reinforced patient's understanding of fall precautions, Hourly rounding (assess needs \T\ fall precautionary measures) done. Abuse screen: Denies threats or abuse. Denies injuries from another. Nutritional screening: No deficits noted. Tuberculosis screening: No symptoms or risk factors identified. Assessment: 19:36 Reassessment: ASSUMING PT CARE FROM TRIAGE. dd2 19:50 General: Appears in no apparent distress. Behavior is calm, cooperative, appropriate dd2 for age. Pain: Denies pain. Pain: Pain began 1 day ago. Is intermittent. Pain: Complains of pain in mid-sternal area. Pain: Pain does not radiate. Pain currently is 0 out of 10 on a pain scale. Neuro: No deficits noted. Cabrera Agitation-Sedation Scale (RASS): 0 - Alert and Calm Level of Consciousness is awake, alert, obeys commands, Oriented to person, place, time, situation, Appropriate for age. Cardiovascular: Reports shortness of breath, CHEST PRESSURE Heart tones S1 S2. Respiratory: Airway is patent Respiratory effort is even, unlabored, Respiratory pattern is regular, symmetrical, Breath sounds are clear bilaterally. GI: No deficits noted. No signs and/or symptoms were reported involving the gastrointestinal system. : No deficits noted. No signs and/or symptoms were reported regarding the genitourinary system. EENT: No deficits noted. No signs and/or symptoms were reported regarding the EENT system. Derm: No deficits noted. No signs and/or symptoms reported regarding the dermatologic system. Musculoskeletal: No deficits noted. No signs and/or symptoms reported regarding the musculoskeletal system. Circulation, motion, and sensation intact. Range of motion: intact in all extremities. Vital Signs: 16:55 BP 114 / 80; Pulse 65; Resp 22; Temp 97.5(O); Pulse Ox 97% on R/A; Weight 82.1 kg; cm10 Height 6 ft. 1 in. ; Pain 3/10; 20:59 BP 121 / 92; Pulse 73; Resp 17; Temp 98.4; Pulse Ox 97% on R/A; dd2 16:55 Body Mass Index 23.88 (82.10 kg, 185.42 cm) cm10 16:55 Pain Scale: Adult cm10 [place] Coma Score: 19:50 Eye Response: spontaneous(4). Motor Response: obeys commands(6). Verbal Response: dd2 oriented(5). Total: 15. ED Course: 16:49 Patient arrived in ED. cm10 16:56 Annalise Yan FNP-C [facility]. kb 16:56 Austin Urban MD is Attending Physician. kb 16:58 Triage completed. cm10 17:00 Arm band placed on left wrist. Patient placed in waiting room. EKG completed in triage. cm10 Results shown to MD. 17:00 EKG done, by ED staff, reviewed by Annalise GARCIA. cm10 17:13 Basic Metabolic Panel Sent. bc6 17:13 CBC with Diff Sent. bc6 17:14 LFT's Sent. bc6 17:14 Magnesium Sent. bc6 17:14 NT PRO-BNP Sent. bc6 17:14 Troponin HS Sent. bc6 17:14 Initial lab(s) drawn, by nv, sent to lab. Inserted saline lock: 20 gauge in left bc6 antecubital area, using aseptic technique. Blood collected. Flushed with 10 mL NS. 17:44 XRAY Chest (1 view) In Process Unspecified. EDMS 18:35 Patient placed in an exam room, on a stretcher. ll1 18:48 Negra Paul MD is Hospitalizing Provider. kb 19:36 SILVESTRE CARBALLO, YAQUELIN is Primary Nurse. dd2 19:50 Patient has correct armband on for positive identification. Bed in low position. Call dd2 light in reach. Side rails up X 1. Client placed on continuous cardiac and pulse oximetry monitoring. NIBP monitoring applied. youth nutritional monitor on. Door closed. Noise minimized. Warm blanket given. Pillow given. Verbal reassurance given. 19:50 No provider procedures requiring assistance completed. Patient maintains SpO2 dd2 saturation greater than 95% on room air. 21:03 Provided Education on: ADMISSION EDUCATION. dd2 21:03 Patient admitted, IV remains in place. dd2 Administered Medications: 20:55 Drug: Aspirin PO Chewable Tablet 324 mg PO once; 81 mg tablets x 4 Route: PO; dd2 20:55 Drug: Furosemide IVP 40 mg IVP once; give over 2 minutes Route: IVP; Site: left dd2 antecubital; Medication: 19:50 VIS not applicable for this client. dd2 Outcome: 18:48 Decision to Hospitalize by Provider. kb 21:03 Admitted to Med/surg accompanied by tech, via wheelchair, on monitor, dd2 21:03 Condition: stable 21:03 Instructed on the need for admit, Demonstrated understanding of instructions, 22:47 Patient left the ED. vc1 Signatures: Dispatcher [employer] EDMS Annalise Yan, RADHA REINOSO-Aurelio Hazel RN RN ll1 Laura Martinez RN RN vc1 Dilma Hernandez bc6 Tia Bear RN RN cm10 SILVESTRE CARBALLO RN RN dd2
[2024-08-11] MEDS ORDERED: ALPRAZOLAM 0.25 MG TABLET PO PRN (20:01)
[2024-08-11] MEDS ORDERED: MORPHINE 4 MG/ML SYR IV PRN (20:01)
[2024-08-11] MEDS ORDERED: NITROGLYCERIN 0.4 MG/TAB SL PRN (20:01)
[2024-08-11] MEDS ORDERED: ALBUTEROL INHALER 200 PUFF/6.7 GM IH PRN (20:07)
--- NOTE | 2024-08-11 20:12 | P.HP ---
Patient History Date of Service: 08/12/24 History of Present Illness: This is a 74-year-old male with a past medical history of coronary artery disease status post three-vessel CABG, 3 stents, defibrillator, COPD, hypercholesterolemia, hypertension presenting with shortness of for the last 4 days. Associated symptoms include orthopnea, chest tightness, cough. He smoked 1 to 2 packs/day for 30 years. 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 He states he tried to shake the feeling of the shortness of breath but he continues to gasp for air. He rates the shortness of breath as a 4 out of 10 in discomfort. He has not taken any [id number]-[id number] meds. Allergies No Known Allergies Allergy (Verified 07/22/22 14:46) Home Medications: Clopidogrel Bisulfate [Plavix*] 75 mg PO DAILY 05/26/19 Enalapril [Vasotec*] 10 mg PO DAILY 05/26/19 Nitroglycerin [Nitrostat*] 0.4 mg SL PRN PRN 05/26/19 Pantoprazole [Protonix Tab*] 40 mg PO BID 05/26/19 carvediloL [Coreg] 25 mg PO BID 05/26/19 cilostazoL [Cilostazol] 100 mg PO BID 05/26/19 Albuterol Sulfate [Proair Hfa] 2 puff IH TID PRN #1 hfa.aer.ad 05/27/19 Furosemide [Lasix*] 40 mg PO DAILY #30 tab 05/27/19 Atorvastatin Calcium [Lipitor] 40 mg PO BEDTIME 07/22/22 Doxycycline Monohydrate 100 mg PO DAILY 07/22/22 - Past Medical/Surgical History Diabetic: No -: Hypertension -: Hyperlipidemia -: CAD with prior CABG x4 vessel -: CHF -: Tobacco abuse -: COPD -: defibrillator-2014 -: Cardiac stents x3 -: CABG x4 vessel -: Left knee surgery Psychosocial/ Personal History: Patient is single. He recently moved back to the area. - Family History Mother -: Hypertension, Other (see notes) Notes: alzheimers - Social History Alcohol use: No CD- Drugs: No Caffeine use: Yes Physical Examination - Physical Exam General: Mild distress HEENT: Normocephalic Respiratory: Other (Tachypneic) Cardiovascular: No edema, Normal pulses, Irregular heart rate/rhythm Capillary refill: <2 Seconds Gastrointestinal: Normal bowel sounds Musculoskeletal: No clubbing, No swelling Integumentary: No rashes Neurological: Normal speech - Studies Laboratory Data (last 24 hrs) 08/11/24 08/11/24 17:10 17:10 WBC 5.60 Hgb 12.1 L Hct 36.7 L Plt Count 167 Sodium 140 Potassium 4.0 BUN 17 Creatinine 2.34 H Glucose 92 Magnesium 1.9 Total Bilirubin 0.9 AST 24 ALT 30 Alkaline Phosphatase 130 H Assessment and Plan - Plan Shortness of breath / pulmonary edema Atrial fibrillation Tachypneic Presence of defibrillator Elevated creatinine Hypertension Hypercholesterolemia Coronary artery disease BNP 5611 and chest x-ray with signs of congestion Echocardiogram pending, EKG with A-fib Cardiology consulted diuresis with 40 IV Lasix, add chlorthalidone daily Monitor creatinine Negative troponin Continue aspirin, statin, Plavix Continue Coreg, morphine as needed, nitroglycerin as needed Repeat labs in the a.m. DVT prophylaxis with Lovenox - Advance Directives Does patient have a Living Will: No Does patient have a Durable POA for Healthcare: No
[2024-08-11] MEDS ORDERED: ASPIRIN 81 MG CHEWABLE TABLET ONE (20:46)
[2024-08-11] MEDS ORDERED: FUROSEMIDE 40 MG/4 ML VIAL ONE (20:47)
[2024-08-11] MEDS: ATORVASTATIN 40 MG TAB PO SCH (23:32)
[2024-08-11] MEDS: carvediloL 25 MG TAB PO SCH (23:32)
[2024-08-12 00:29] VITALS: BMI 23.8
[2024-08-12] MEDS: HEPARIN 5000 UNIT/ML 1 ML VIAL SQ SCH (00:56)
[2024-08-12 04:55] LABS: Absolute Eosinophils 0.1 K/uL (0-0.5); Absolute Lymphocytes (CBC) 1.9 K/uL (0.7-4.9); Absolute Monocytes 0.5 K/uL (0.1-1.3); Absolute Neutrophil 3.2 K/uL (1.8-8.0); Basophils % 0.5 % (0-1.3); Eosinophils % 1.8 % (0-4.4); Hematocrit 32.6 % (39.6-49.0); Hemoglobin 10.8 g/dL (13.6-17.9); Lymphocytes % 32.9 % (15.3-44.8); MCH 28.7 pg (27.0-35.0); MCHC 33.3 g/dL (32.0-36.0); MCV 86.2 fL (80-100); MPV 9.7 fL (7.6-11.3); Monocytes % 8.3 % (3.3-12.3); Neutrophils % 56.5 % (41.7-73.7); Platelets 140 thou/uL (152-406); RBC Red Blood Cell Count 3.78 M/uL (4.33-5.43); Red Cell Distribution Width 15.9 % (12.1-15.2)
[2024-08-12 05:04] LABS: Anion Gap 7.4 mEq/L (5.0-15.0); Potassium 3.4 mEq/L (3.5-5.1)
[2024-08-12] MEDS: CHLORTHALIDONE 25 MG TAB PO SCH (08:34)
[2024-08-12] MEDS: ASPIRIN 325 MG TAB PO SCH (08:34)
[2024-08-12] MEDS: CLOPIDOGREL 75 MG TABLET PO SCH (08:34)
[2024-08-12] MEDS: ENALAPRIL 10 MG TAB PO SCH (08:34)
[2024-08-12] MEDS: FUROSEMIDE 40 MG/4 ML VIAL IV SCH (08:35)
[2024-08-12] MEDS: ASPIRIN EC 81 MG TAB PO SCH (08:55)
[2024-08-12] MEDS: PANTOPRAZOLE 40MG TABLET PO SCH (09:00)
[2024-08-12] MEDS: MAGNESIUM OXIDE 400 MG TAB PO SCH (09:00)
[2024-08-12] MEDS: DOCUSATE NA 100 MG CAP PO SCH (09:05)
[2024-08-12] MEDS: MULTIVITAMIN TAB PO SCH (09:10)
[2024-08-12] MEDS: cilostazoL 100 MG TAB PO SCH (09:30)
--- NOTE | 2024-08-12 13:28 | P.CNS ---
Date of Consult: 08/12/24 Chief Complaint: heart failure History of Present Illness: Patient with PMH of CAD S/P CABG x4, followed by PCI X3 (done at [facility]), heart reduced EF s/p ICD placement, presented with worsening SOB, palpitations, denies chest pain, no syncope. Allergies No Known Allergies Allergy (Verified 07/22/22 14:46) Home Medications: Clopidogrel Bisulfate [Plavix*] 75 mg PO DAILY 05/26/19 Enalapril [Vasotec*] 10 mg PO DAILY 05/26/19 Nitroglycerin [Nitrostat*] 0.4 mg SL PRN PRN 05/26/19 Pantoprazole [Protonix Tab*] 40 mg PO BID 05/26/19 carvediloL [Coreg] 25 mg PO BID 05/26/19 cilostazoL [Cilostazol] 100 mg PO BID 05/26/19 Albuterol Sulfate [Proair Hfa] 2 puff IH TID PRN #1 hfa.aer.ad 05/27/19 Furosemide [Lasix*] 40 mg PO DAILY #30 tab 05/27/19 Atorvastatin Calcium [Lipitor] 40 mg PO BEDTIME 07/22/22 Aspirin [Aspirin EC 81 MG] 81 mg PO DAILY 08/12/24 Docusate [Colace Cap*] 100 mg PO DAILY 08/12/24 Docusate [Colace Cap] 100 mg PO DAILY 08/12/24 Magnesium Oxide [Mag 0X*] 400 mg PO DAILY 08/12/24 Multivitamin/Iron/Folic Acid [Centrum Adults Tablet] 1 mg PO DAILY 08/12/24 - Past Medical/Surgical History Diabetic: No -: Hypertension -: Hyperlipidemia -: CAD with prior CABG x4 vessel -: CHF -: Tobacco abuse -: COPD -: defibrillator-2013 -: Cardiac stents x3 -: CABG x4 vessel -: Left knee surgery Psychosocial/ Personal History: Patient is single. He recently moved back to the area. - Family History Mother Medical History: Hypertension, Other (see notes) Notes: alzheimers - Social History Smoking Status: Current every day smoker Alcohol use: No CD- Drugs: No Caffeine use: Yes Place of Residence: Home Review of Systems 10-point ROS is otherwise unremarkable Physical Examination Temp Pulse Resp BP Pulse Ox 97.6 F 79 16 94/67 99 08/12/24 12:00 08/12/24 12:00 08/12/24 12:00 08/12/24 12:00 08/12/24 12:00 General: Alert, In no apparent distress HEENT: Atraumatic, PERRLA, Mucous membr. moist/pink, EOMI, Sclerae nonicteric Neck: Supple, 2+ carotid pulse no bruit, No LAD, Without JVD or thyroid abnormality Respiratory: Clear to auscultation bilaterally, Normal air movement Cardiovascular: Regular rate/rhythm, Normal S1 S2 Gastrointestinal: Normal bowel sounds, No tenderness Musculoskeletal: No tenderness Integumentary: No rashes Neurological: Normal gait, Normal speech, Normal tone, Normal affect Lymphatics: No axilla or inguinal lymphadenopathy Laboratory Data (last 24 hrs) 08/11/24 08/11/24 17:10 17:10 WBC 5.60 Hgb 12.1 L Hct 36.7 L Plt Count 167 Sodium 140 Potassium 4.0 BUN 17 Creatinine 2.34 H Glucose 92 Magnesium 1.9 Total Bilirubin 0.9 AST 24 ALT 30 Alkaline Phosphatase 130 H - Problems (1) Atrial fibrillation Current Visit: Yes Status: Acute Plan: Per patient he was never told he had AF, patient is currently rate controlled Continue Coreg add Eliquis 5 mg po BID Stop Plavix lower ASA to 81 mg daily (2) CAD (coronary artery disease) Current Visit: Yes Status: Acute Plan: CABG x4 followed by PCI x3 in [facility] almost 4 years ago Troponin negative no chest pain outpatient follow up with cardiology for stress test. (3) Acute on chronic combined systolic and diastolic heart failure Current Visit: Yes Status: Acute Plan: continue lasix 40 mg IV BID Continue coreg continue enalpril recommend adding Jardiance 10 mg daily at discharge. Patient got an ICD
--- NOTE | 2024-08-12 14:13 | ECHO ---
HEIGHT: 6 ft 1 in WEIGHT: 180 lb 15.992 oz DATE OF STUDY: 08/12/[address]: Negra Paul MD 2-DIMENSIONAL: YES M.MODE: YES DOPPLER: YES COLOR FLOW: YES TDS: PORTABLE: YES DEFINITY: BUBBLE STUDY: DIAGNOSIS: SHORTNESS OF BREATH CARDIAC HISTORY: CATHERIZATION: YES SURGERY: YES PROSTHETIC VALVE: NO PACEMAKER: YES MEASUREMENTS (cm) DIASTOLIC (NORMALS) SYSTOLIC (NORMALS) IVSd 1.4 (0.6-1.2) LA Diam 3.9 (1.9-4.0) LVEF 10-15% LVIDd 6.2 (3.5-5.7) LVIDs 5.6 (2.0-3.5) %FS 9% LVPWd 1.4 (0.6-1.2) Ao Diam 3.1 (2.0-3.7) 2 DIMENSIONAL ASSESSMENT: RIGHT ATRIUM: NORMAL LEFT ATRIUM: NORMAL RIGHT VENTRICLE: NORMAL, PACEMAKER SEEN LEFT VENTRICLE: DILATED TRICUSPID VALVE: MILD TRICUSPID REGURGITATION MITRAL VALVE: MILD MITRAL REGURGITATION PULMONIC VALVE: NORMAL AORTIC VALVE: NORMAL PERICARDIAL EFFUSION: NONE AORTIC ROOT: NORMAL LEFT VENTRICULAR WALL MOTION: SEVERE GLOBAL HYPOKINESIS DOPPLER/COLOR FLOW: DIASTOLIC DYSFUNCTION COMMENTS: 1. SEVERELY REDUCED LEFT VENTRICULAR SYSTOLIC FUNCTION, EJECTION FRACTION 10-15%, SEVERE GLOBAL HYPOKINESIS 2. DIASTOLIC DYFUNCTION 3. ELEVATED FILLING PRESSURE (RIGHT ATRIAL PRESSURE 15-20 mmHg) TECHNOLOGIST: POLO BARONE
--- NOTE | 2024-08-12 16:54 | P.PN ---
Subjective Date of Service: 08/12/24 Chief Complaint: heart failure Patient reports significant improvement in his shortness of breath. He reports he had orthopnea which has resolved. He denies any chest pain. Physical Examination - Vital Signs Temperature: 97.6 F Blood Pressure: 94/67 Pulse: 79 Respirations: 16 Pulse Ox (%): 99 - Studies Laboratory Data (last 24 hrs) 08/11/24 08/11/24 17:10 17:10 WBC 5.60 Hgb 12.1 L Hct 36.7 L Plt Count 167 Sodium 140 Potassium 4.0 BUN 17 Creatinine 2.34 H Glucose 92 Magnesium 1.9 Total Bilirubin 0.9 AST 24 ALT 30 Alkaline Phosphatase 130 H Assessment And Plan - Plan Physical examination General: Alert and oriented x3, NAD, HEENT: Conjunctiva not pale, anicteric sclera Neck: Supple, no elevated JVD Heart: Heart sounds 1 and 2 normal, regular rhythm, normal rate, no pedal edema Lungs: Mild bibasilar Rales on auscultation, adequate breath sounds bilaterally, no rhonchi. Abdomen: Soft, nondistended, nontender, normal bowel sounds. Extremities: No tenderness, no deformity Skin: Normal skin turgor, no rash, no nodules or ulcers. Neuro: No focal motor deficit. Normal speech. Psychiatry: Normal mood, no agitation. Diagnosis Acute on chronic systolic heart failure Atrial fibrillation Presence of defibrillator Chronic kidney disease stage III. Hypertension Hypercholesterolemia Coronary artery disease Plan: Acute on chronic systolic heart failure Clinically improved. Echocardiogram shows EF of 10 to 15%. Patient has an AICD in place. Continue IV Lasix. Continue Coreg for rate control Cardiology Dr. Spivey's input appreciated. Planning to transition to oral Lasix in a.m. Continue telemetry. Atrial fibrillation Dr. Spivey's evaluated patient and recommended Eliquis. Continue Coreg. Chronic kidney disease stage III Monitor renal function with diuresis. Coronary artery disease/peripheral vascular disease Stable Negative troponin. Continue aspirin, Plavix and cilostazol. DVT prophylaxis: Eliquis Advanced directive: Full code
[2024-08-12 17:46] LABS: Magnesium 1.8 mg/dL (1.6-2.4); Phosphorus 3.2 mg/dL (2.5-4.9)
[2024-08-13 05:31] LABS: Absolute Eosinophils 0.1 K/uL (0-0.5); Absolute Lymphocytes (CBC) 1.8 K/uL (0.7-4.9); Absolute Monocytes 0.5 K/uL (0.1-1.3); Absolute Neutrophil 2.7 K/uL (1.8-8.0); Basophils % 0.4 % (0-1.3); Eosinophils % 1.8 % (0-4.4); Hematocrit 31.6 % (39.6-49.0); Hemoglobin 10.7 g/dL (13.6-17.9); Lymphocytes % 35.3 % (15.3-44.8); MCH 28.8 pg (27.0-35.0); MCHC 33.8 g/dL (32.0-36.0); MCV 85.3 fL (80-100); MPV 8.5 fL (7.6-11.3); Monocytes % 9.3 % (3.3-12.3); Neutrophils % 53.2 % (41.7-73.7); Platelets 133 thou/uL (152-406); Red Cell Distribution Width 15.7 % (12.1-15.2)
[2024-08-13 05:47] LABS: Anion Gap 10.3 mEq/L (5.0-15.0); Potassium 3.3 mEq/L (3.5-5.1)
[2024-08-13 07:27] VITALS: O2SAT 96
--- NOTE | 2024-08-13 11:05 | P.DS ---
Admission Date: 08/11/24 Discharge Date: 08/13/24 Disposition: ROUTINE DISCHARGE Discharge Condition: FAIR Reason for Admission: heart failure Brief History of Present Illness: 74-year-old male with a past medical history of coronary artery disease status post three-vessel CABG, 3 stents, defibrillator, COPD, hypercholesterolemia, hypertension presented with shortness for 4 days. Associated symptoms include orthopnea, chest tightness, cough. He smoked 1 to 2 packs/day for 30 years. 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 Chest x-ray on admission showed pulmonary edema. Patient was hospitalized for further management. Hospital Course: Diagnosis Acute on chronic systolic heart failure Atrial fibrillation Presence of defibrillator Chronic kidney disease stage III. Hypertension Hypercholesterolemia Coronary artery disease Patient admitted to the medical floor and the following medical problems addressed: Plan: Acute on chronic systolic heart failure Echocardiogram shows EF of 10 to 15%. Patient has an AICD in place. Patient was treated with IV Lasix. His shortness of breath improved to baseline Cardiology Dr. Spivey's evaluated patient and assisted with management. IV Lasix was transitioned to oral Lasix once patient's shortness of breath significantly improved and appears euvolemic. Patient symptoms are significantly improved and deemed stable for discharge. Atrial fibrillation Dr. Spivey's evaluated patient and recommended Eliquis. Heart rate was controlled with Coreg. Chronic kidney disease stage III Renal function was stable with diuresis. Coronary artery disease/peripheral vascular disease Stable Negative troponin. Continued aspirin, Plavix and cilostazol. Vital Signs/Physical Exam: Temp Pulse Resp BP Pulse Ox 98.4 F 80 18 118/70 94 08/13/24 08:00 08/13/24 08:30 08/13/24 08:00 08/13/24 08:30 08/13/24 08:00 General: Alert, In no apparent distress HEENT: Mucous membr. moist/pink Neck: Supple, JVD not distended Respiratory: Clear to auscultation bilaterally, Normal air movement Cardiovascular: No edema, Normal S1 S2, Irregular heart rate/rhythm Gastrointestinal: Normal bowel sounds, Soft and benign, No tenderness Musculoskeletal: No swelling Integumentary: No rashes, No cyanosis Neurological: Normal strength at 5/5 x4 extr Laboratory Data at Discharge: WBC 5.10 thou/uL (4.3-10.9) 08/13/24 05:06 Hgb 10.7 g/dL (13.6-17.9) L 08/13/24 05:06 Hct 31.6 % (39.6-49.0) L 08/13/24 05:06 Plt Count 133 thou/uL (152-406) L 08/13/24 05:06 Sodium 140 mEq/L (136-145) 08/13/24 05:06 Potassium 3.3 mEq/L (3.5-5.1) L 08/13/24 05:06 BUN 21 mg/dL (7-18) H 08/13/24 05:06 Creatinine 2.06 mg/dL (0.70-1.30) H 08/13/24 05:06 Glucose 100 mg/dL (74-106) 08/13/24 05:06 Phosphorus 3.2 mg/dL (2.5-4.9) 08/12/24 17:19 Magnesium 1.8 mg/dL (1.6-2.4) 08/12/24 17:19 Total Bilirubin 0.9 mg/dL (0.2-1.0) 08/11/24 17:10 AST 24 U/L (15-37) 08/11/24 17:10 ALT 30 U/L (16-61) 08/11/24 17:10 Alkaline Phosphatase 130 U/L (45-117) H 08/11/24 17:10 Triglycerides 66 mg/dL (<150) 08/11/24 21:05 Cholesterol 130 mg/dL (<200) 08/11/24 21:05 HDL Cholesterol 36 mg/dL (40-60) L 08/11/24 21:05 Cholesterol/HDL Ratio 3.61 08/11/24 21:05 Home Medications: Clopidogrel Bisulfate [Plavix*] 75 mg PO DAILY 05/26/19 Enalapril [Vasotec*] 10 mg PO DAILY 05/26/19 Nitroglycerin [Nitrostat*] 0.4 mg SL PRN PRN 05/26/19 Pantoprazole [Protonix Tab*] 40 mg PO BID 05/26/19 carvediloL [Coreg] 25 mg PO BID 05/26/19 cilostazoL [Cilostazol] 100 mg PO BID 05/26/19 Albuterol Sulfate [Proair Hfa] 2 puff IH TID PRN #1 hfa.aer.ad 05/27/19 Atorvastatin Calcium [Lipitor] 40 mg PO BEDTIME 07/22/22 Aspirin [Aspirin EC 81 MG] 81 mg PO DAILY 08/12/24 Docusate [Colace Cap*] 100 mg PO DAILY 08/12/24 Magnesium Oxide [Mag 0X*] 400 mg PO DAILY 08/12/24 Multivitamin/Iron/Folic Acid [Centrum Adults Tablet] 1 mg PO DAILY 08/12/24 Furosemide [Lasix*] 40 mg PO DAILY #30 tab 08/13/24 New Medications: Furosemide [Lasix*] 40 mg PO DAILY #30 tab Diet: AHA Activity: Ad rommel Followup: Km Spivey MD [ACTIVE - CAN ADMIT] - 1-2 Weeks (Call for appointment.) Tamica Orta MD [Primary Care Provider] - 1 Week (call for appointment.) Time spent managing pt's care (in minutes): 38
[2024-08-13 11:46] VITALS: BP 99/60; TEMP 98.2
--- NOTE | 2024-08-17 11:27 | EKG ---
Test Date: 2024-08-11 Test Time: 16:53:19 Core Sucker: BESS MEASUREMENT RESULTS: Intervals: Rate: 71 [place]: QRSD: 138 QT: 460 QTc: 499 [place]: P: [place]: QRS: -25 T: 110 INTERPRETIVE STATEMENTS: Atrial fibrillation with premature ventricular or aberrantly conducted complexes Nonspecific intraventricular block Abnormal ECG Compared to ECG 11/30/2021 11:00:00 Sinus rhythm no longer present ST (T wave) deviation no longer present Possible ischemia no longer present Prolonged QT interval no longer present Electronically Signed On 08-17-24 11:09:30 CDT by Km Spivey
== END 2024-08-13 12:26 | disposition home or self-care (01) | DRG 291 ==
LOC: ER 16:42 → 4TH 20:01
PROVIDERS: ADMIT Family Medicine; ATTEND Internal Medicine
DX: I13.0 Hypertensive heart and chronic kidney disease with heart failure and stage 1 through stage 4 chronic kidney disease, or unspecified chronic kidney disease (principal); I50.23 Acute on chronic systolic (congestive) heart failure; N18.30 Chronic kidney disease, stage 3 unspecified; I73.9 Peripheral vascular disease, unspecified; I48.91 Unspecified atrial fibrillation; E78.00 Pure hypercholesterolemia, unspecified; J44.9 Chronic obstructive pulmonary disease, unspecified; I25.10 Atherosclerotic heart disease of native coronary artery without angina pectoris; F17.210 Nicotine dependence, cigarettes, uncomplicated; I25.2 Old myocardial infarction; Z95.1 Presence of aortocoronary bypass graft; Z95.5 Presence of coronary angioplasty implant and graft; Z79.02 Long term (current) use of antithrombotics/antiplatelets; Z86.711 Personal history of pulmonary embolism; Z79.899 Other long term (current) drug therapy; Z95.810 Presence of automatic (implantable) cardiac defibrillator
CPT/HCPCS: 36415; 71045; 80048; 80061; 80076; 83735; 83880; 84100; 84484; 85025; 86140; 93005; 93306; 94760; 96374; 99285; J1644; J1940

== ENCOUNTER 2024-09-23 16:04 | Inpatient (IN) | payer MEDICARE, OTHER ==
--- OUTSIDE RECORDS SUMMARY | 2024-09-23 16:07 | XMS REPORT | Continuity of Care Document ---
Author Name Unknown Address [address] [facility] [address] [place] [address] [facility] Address [address] [facility] 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 Name Role Phone Tamica Orta Attending Clinician Unavailable Tk Saul Attending Clinician Encounters Start Date/Time End Date/Time Encounter Type Admission Type Attending Clinicians Care Facility Care Department Encounter ID Source 2023-10-22 13:52:00 [facility] [id number] [facility] 2023-10-20 09:42:01 Outpatient Orta, Tamica [facility] [id number] [facility] 2023-08-06 13:12:00 Outpatient Marivel Tamica [facility] [id number] [facility] 2023-06-05 09:19:00 Outpatient Marivel [facility]ica [facility] [id number] [facility] 2023-05-27 14:49:00 Outpatient Orta, Tamica [facility] [id number] [facility] 2023-05-05 11:42:01 Outpatient Orta, Tamica [facility] [id number] [facility] 2023-04-30 10:02:00 Outpatient Orta, Tamica [facility] [id number] [facility] 2022-11-20 13:51:00 Outpatient OrtaTamica [facility] [id number] [facility] 2022-09-13 12:39:00 Outpatient OrtaTamica [facility] [id number] [facility] 2022-09-11 08:17:00 Outpatient OrtaTamica [facility] [id number] [facility] 2022-05-21 13:06:03 Outpatient Orta, Tamica [facility] [id number] [facility] 2022-05-20 10:23:03 Outpatient Orta, Tamica [facility] [id number] [facility] 2022-03-21 09:47:02 Outpatient OrtaChrisi [facility] [id number] [facility] 2021-12-17 14:16:02 Outpatient OrtaChrisi [facility] [id number] [facility] 2021-09-11 13:09:03 Outpatient Orta, Tamica [facility] [id number] [facility] 2021-09-10 13:58:03 Outpatient OrtaChrisi [facility] [id number] [facility] 2021-09-03 13:45:03 Outpatient OrtaChrisi [facility] [id number] [facility] 2021-08-21 08:27:02 Outpatient Orta Tamica [facility] [id number] [facility] 2021-08-13 12:49:01 Outpatient Orta, Tamica [facility] [id number] [facility] 2021-08-03 09:08:02 Outpatient Orta, Tamica [facility] [id number] [facility] 2023-08-27 21:00:00 2023-08-27 22:00:00 Initial D2Me Tk Saul [id number] [facility]
[2024-09-23] MEDS ORDERED: METHYLPREDNISOLONE 125 MG INJ ONE (16:40)
[2024-09-23] MEDS ORDERED: IPRATROPIUM BROM 0.5MG/2.5ML ONE (16:40)
[2024-09-23] MEDS ORDERED: ALBUTEROL 2.5 MG/3 ML NEB SOL ONE (16:40)
[2024-09-23 16:46] LABS: Absolute Lymphocytes (CBC) 1.4 K/uL (0.7-4.9); Absolute Monocytes 0.4 K/uL (0.1-1.3); Absolute Neutrophil 3.1 K/uL (1.8-8.0); Basophils % 0.4 % (0-1.3); Eosinophils % 0.8 % (0-4.4); Hematocrit 34.8 % (39.6-49.0); Hemoglobin 11.7 g/dL (13.6-17.9); Lymphocytes % 28.1 % (15.3-44.8); MCH 28.5 pg (27.0-35.0); MCHC 33.6 g/dL (32.0-36.0); MCV 84.8 fL (80-100); Neutrophils % 62.7 % (41.7-73.7); Nucleated Red Blood Cells % 0.1 % (0-0); Platelets 144 thou/uL (152-406); Red Cell Distribution Width 15.4 % (12.1-15.2)
[2024-09-23 16:57] LABS: PT Prothrombin Time 15.1 SECONDS (10-13.0); Protime INR 1.34
[2024-09-23 17:00] LABS: Albumin 3.3 g/dL (3.4-5.0); Albumin/Globulin Ratio 0.9 (1.1-1.8); Bilirubin Direct 0.4 mg/dL (0-0.2); Bilirubin Indirect, Calculated 0.6 mg/dL (0.2-0.8); Globulin 3.7 g/dL (2.3-3.5); Magnesium 1.9 mg/dL (1.6-2.4); Troponin High Sensitivity 56.8 pg/mL (<58.9)
[2024-09-23 17:19] LABS: Influenza A Ag Negative; Influenza B Ag Negative; SARS-CoV-2 Antigen Rapid Res Negative (Negative)
--- NOTE | 2024-09-23 17:50 | RAD REPORT ---
EXAMINATION: ONE VIEW CHEST XR CLINICAL INDICATION: Chest pain;SOB TECHNIQUE: Frontal chest projection is submitted. Examination is limited by patient positioning and t echnique. COMPARISON: 08/11/2024 FINDINGS: Mild bilateral pulmonary edema is suspected. The heart is moderately enlarged in size. No displaced f ractures identified. Sternotomy wires. Single-lead pacer/defibrillator device. IMPRESSION: Mild CHF versus volume overload pattern is suspected.
[2024-09-23] MEDS ORDERED: FUROSEMIDE 20 MG/ 2ML VIAL ONE ×2 (18:03→18:13)
[2024-09-23] MEDS ORDERED: MIDODRINE HCL 5 MG TABLET ONE (18:11)
--- NOTE | 2024-09-23 18:21 | ER ---
Nurse's Notes [facility] Name: Shaun Yan Age: 74 yrs Sex: Male : 1950 Arrival Date: 09/23/2024 Time: 16:04 Bed 19 Private MD: Diagnosis: Unspecified combined systolic (congestive) and diastolic (congestive) heart failure;Dyspnea, unspecified;Chest pain, unspecified;Acute pulmonary edema Presentation: 09/23 16:08 Chief complaint: Patient states: has been SOB X 3-4 days, was d/c from the hospital iw recently for fluid in his lungs , + cough. Coronavirus screen: At this time, the client does not indicate any symptoms associated with coronavirus-19. Ebola Screen: No symptoms or risks identified at this time. Initial Sepsis Screen: Does the patient meet any 2 criteria? No. Patient's initial sepsis screen is negative. Does the patient have a suspected source of infection? No. Patient's initial sepsis screen is negative. Risk Assessment: Do you want to hurt yourself or someone else? Patient reports no desire to harm self or others. Onset of symptoms was September 20, 2024. 16:08 Method Of Arrival: Ambulatory iw 16:08 Acuity: CUATE 3 iw Historical: - Allergies: 16:09 No Known Allergies; iw - Home Meds: 16:11 cilostazol 100 mg oral tablet 2 times per day [Active]; nitroglycerin 0.4 mg SL Tablet, iw Sublingual every 5 minutes [Active]; Proair Digihaler 90 mcg/actuation inhalation Aerosol Powder, Breath Activ.with Sensor [Active]; Lasix 20 mg Oral tablet daily [Active]; carvedilol 25 mg oral tablet 2 times per day [Active]; Protonix 40 mg Oral tablet, delayed release (enteric coated) daily [Active]; aspirin 81 mg Oral capsule daily [Active]; clopidogrel 75 mg oral tablet daily [Active]; enalapril maleate 10 mg Oral tablet daily [Active]; atorvastatin 40 mg oral tablet daily [Active]; - PMHx: 16:09 Aneurysm; around left kidney; CAD; COPD; Hypercholesterolemia; Hypertension; Myocardial iw infarction; PE; - PSHx: 16:09 left knee; Coronary artery bypass graft; Pacemaker/ Defibrilator; iw - Immunization history:: Adult Immunizations up to date. - Infectious Disease History:: Denies. - Social history:: Smoking status: Patient/guardian denies using tobacco, Stopped _ months ago 3. Screenin:15 [facility] ED Fall Risk Assessment (Adult) History of falling in the last 3 months, me1 including since admission No falls in past 3 months (0 pts) Confusion or Disorientation No (0 pts) Intoxicated or Sedated No (0 pts) Impaired Gait No (0 pts) Mobility Assist Device Used No (0 pt) Altered Elimination No (0 pt) Score/Fall Risk Level 0 - 2 = Low Risk Maintained a safe environment, Provided non-skid footwear, Hourly rounding (assess needs \T\ fall precautionary measures) done. Abuse screen: Denies threats or abuse. Nutritional screening: No deficits noted. Tuberculosis screening: No symptoms or risk factors identified. Assessment: 16:15 General: Appears in no apparent distress. well groomed, well developed, well nourished, me1 Behavior is calm, cooperative, appropriate for age, Reports has been SOB X 3-4 days, was d/c from the hospital recently for fluid in his lungs , + cough. Pain: Complains of pain in chest Pain does not radiate. Pain currently is 2 out of 10 on a pain scale. Quality of pain is described as tightness Pain began gradually, Is continuous. Neuro: Level of Consciousness is awake, alert, obeys commands, Oriented to person, place, time, situation, Appropriate for age. Cardiovascular: Patient's skin is warm and dry. Cardiovascular: Reports chest pain, shortness of breath. Respiratory: Airway is patent Respiratory effort is even, unlabored, Respiratory pattern is regular, symmetrical. GI: No signs and/or symptoms were reported involving the gastrointestinal system. : No signs and/or symptoms were reported regarding the genitourinary system. EENT: No signs and/or symptoms were reported regarding the EENT system. Derm: Skin is intact, is healthy with good turgor, Skin is pink, warm \T\ dry. Musculoskeletal: No signs and/or symptoms reported regarding the musculoskeletal system. 09/24 07:00 Reassessment: see Your Office Agent for continued charting. db Vital Signs: 09/23 16:08 BP 123 / 82; Pulse 73; Resp 20; Temp 97.4; Pulse Ox 98% on R/A; Weight 86.18 kg; Height iw 6 ft. 1 in. ; 17:00 BP 108 / 84; Pulse 70; Resp 19; Pulse Ox 100% ; me1 18:00 BP 127 / 98; Pulse 75; Resp 22; Pulse Ox 96% ; me1 19:00 BP 138 / 97; Pulse 76; Resp 22; Pulse Ox 97% ; me1 20:00 BP 141 / 79; Pulse 82; Resp 20; Pulse Ox 95% ; me1 16:08 Body Mass Index 25.07 (86.18 kg, 185.42 cm) ED Course: 16:05 Patient arrived in ED. cj3 16:08 Austin Santiago PA is PHCP. cp 16:09 Paco Kelly MD is Attending Physician. cp 16:09 Triage completed. iw 16:09 Arm band placed on. iw 16:15 Patient has correct armband on for positive identification. Bed in low position. Call me1 light in reach. Side rails up X2. Provided Education on: POC. Verbalized understanding.. Client placed on continuous cardiac and pulse oximetry monitoring. NIBP monitoring applied. phototypesetting equipment monitor on. Pulse ox on. NIBP on. 16:15 No provider procedures requiring assistance completed. Patient maintains SpO2 me1 saturation greater than 95% on room air. 16:36 Christina Darnell, RN is Primary Nurse. me1 16:36 Basic Metabolic Panel Sent. me1 16:36 CBC with Diff Sent. me1 16:36 LFT's Sent. me1 16:36 Magnesium Sent. me1 16:36 NT PRO-BNP Sent. me1 16:36 PT-INR Sent. me1 16:36 Troponin HS Sent. me1 16:37 Initial lab(s) drawn, by nv, sent to lab. Inserted saline lock: 20 gauge in left me1 antecubital area, using aseptic technique. 17:24 XRAY Chest (1 view) In Process Unspecified. EDMS 18:19 Arturo Friend MD is Hospitalizing Provider. cp 09/24 04:31 Troponin High Sensitivity Sent. hw 04:31 Comprehensive Metabolic Panel Sent. hw 04:31 Comprehensive Metabolic Panel Sent. hw 04:31 Troponin High Sensitivity Sent. hw 04:31 Troponin High Sensitivity Sent. hw 04:31 CBC with Automated Diff Sent. hw 04:31 CBC with Automated Diff Sent. hw 07:00 Patient admitted, IV remains in place. db Administered Medications: 04 16:47 Drug: MethylPrednisoLONE IVP 125 mg IVP once Route: IVP; Site: left antecubital; me1 18:18 Follow up: Response: No adverse reaction me1 16:47 Drug: DuoNeb Nebulize (2.5 mg - 0.5 mg) 3 ml Nebulizer once Route: Nebulizer; me1 18:18 Follow up: Response: No adverse reaction me1 18:17 CANCELLED (Physician Discretion): midodrine 10 mg PO once cp 18:17 Drug: Furosemide IVP 20 mg IVP once; give over 2 minutes Route: IVP; Site: left me1 antecubital; 18:32 Follow up: Response: No adverse reaction me1 18:17 Drug: Furosemide IVP 20 mg IVP once; give over 2 minutes Route: IVP; Site: left me1 antecubital; 18:32 Follow up: Response: No adverse reaction me1 Medication: 16:15 VIS not applicable for this client. nv1 Outcome: 18:20 Decision to Hospitalize by Provider. cp 09/24 07:00 Admitted to ER Hold. Please see [facility] for further documentation. db Condition: stable Instructed on the need for admit, 14:56 Patient left the ED. db Signatures: Dispatcher [employer] Angeles Duran RN RN iw Austin Santiago PA PA cp Charley Sims, YAQUELIN JAMISON db Christina Darnell, YAQUELIN RN nv1 Jinny Gomez Celeste cj3 Corrections: (The following items were deleted from the chart) 09/23 16:52 16:08 Chief complaint: Patient states: has been SOB X 3-4 days, was d/c from the [address] recently for fluid in his lungs , + cough iw 17:59 16:08 Chief complaint: Patient states: has been SOB X 3-4 days, was d/c from the [address] recently for fluid in his lungs , + cough me1
--- NOTE | 2024-09-23 18:21 | EDPHYS ---
Physician Documentation [facility] Name: Shaun Yan Age: 74 yrs Sex: Male : 1950 Arrival Date: 09/23/2024 Time: 16:04 Bed 19 Private MD: ED Physician Paco Kelly HPI: 09/23 16:20 This 74 yrs old Black Male presents to ER via Ambulatory with complaints of Chest Pain, cp Chest Tightness, Shortness Of Breath. 16:20 The patient has shortness of breath with light activity. cp 16:20 Onset: The symptoms/episode began/occurred over past 3-4 days. Duration: The symptoms cp are continuous, and are steadily getting worse. Associated signs and symptoms: Pertinent positives: chest pain, Pertinent negatives: productive cough, fever, vomiting. Severity of symptoms: in the emergency department the symptoms are unchanged despite EMS interventions. yes when diagnosed with fluid in lungs. Historical: - Allergies: 16:09 No Known Allergies; iw - Home Meds: 16:11 cilostazol 100 mg oral tablet 2 times per day [Active]; nitroglycerin 0.4 mg SL Tablet, iw Sublingual every 5 minutes [Active]; Proair Digihaler 90 mcg/actuation inhalation Aerosol Powder, Breath Activ.with Sensor [Active]; Lasix 20 mg Oral tablet daily [Active]; carvedilol 25 mg oral tablet 2 times per day [Active]; Protonix 40 mg Oral tablet, delayed release (enteric coated) daily [Active]; aspirin 81 mg Oral capsule daily [Active]; clopidogrel 75 mg oral tablet daily [Active]; enalapril maleate 10 mg Oral tablet daily [Active]; atorvastatin 40 mg oral tablet daily [Active]; - PMHx: 16:09 Aneurysm; around left kidney; CAD; COPD; Hypercholesterolemia; Hypertension; Myocardial iw infarction; PE; - PSHx: 16:09 left knee; Coronary artery bypass graft; Pacemaker/ Defibrilator; iw - Immunization history:: Adult Immunizations up to date. - Infectious Disease History:: Denies. - Social history:: Smoking status: Patient/guardian denies using tobacco, Stopped _ months ago 3. ROS: 16:25 Constitutional: Negative for body aches, chills, fever, poor PO intake, cp 16:25 Cardiovascular: Positive for chest pain, Negative for edema, palpitations, cp 16:25 Respiratory: Positive for cough, orthopnea, shortness of breath, on exertion. Negative for wheezing, 16:25 Abdomen/GI: Negative for abdominal pain, nausea, vomiting, and diarrhea, 16:25 Eyes: Negative for injury, pain, redness, and discharge, cp 16:25 ENT: Negative for drainage from ear(s), ear pain, sore throat, difficulty swallowing, cp difficulty handling secretions, 16:25 Neuro: Negative for altered mental status, dizziness, headache, numbness, syncope, near syncope, weakness, 16:25 All other systems are negative, Exam: 16:28 ECG was reviewed by the Attending Physician. cp 16:30 Constitutional: The patient appears in no acute distress, alert, awake, cp non-diaphoretic, non-toxic, well developed, well nourished, 16:30 Head/Face: Normocephalic, atraumatic. cp 16:30 Eyes: Periorbital structures: appear normal, Conjunctiva: normal, no exudate, no injection, Sclera: no appreciated abnormality, Lids and lashes: appear normal, bilaterally, 16:30 ENT: External ear(s): are unremarkable, Nose: is normal, Mouth: Lips: moist, Oral mucosa: moist, Posterior pharynx: Airway: no evidence of obstruction, patent, 16:30 Chest/axilla: Inspection: normal, 16:30 Cardiovascular: Rate: normal, Rhythm: regular, Edema: is not appreciated, JVD: is not appreciated, 16:30 Respiratory: the patient does not display signs of respiratory distress, Respirations: labored breathing, that is mild, Breath sounds: decreased breath sounds, that are mild, throughout, stridor, is not appreciated, wheezing: is not appreciated, 16:30 Abdomen/GI: Inspection: abdomen appears normal, Palpation: abdomen is soft and non-tender, in all quadrants, 16:30 Back: pain, 16:30 Neuro: Orientation: to person, place \T\ time. Mentation: is normal, Cerebellar function: is grossly normal, Motor: moves all fours, strength is normal, Sensation: is normal, Vital Signs: 16:08 BP 123 / 82; Pulse 73; Resp 20; Temp 97.4; Pulse Ox 98% on R/A; Weight 86.18 kg; Height iw 6 ft. 1 in. ; 17:00 BP 108 / 84; Pulse 70; Resp 19; Pulse Ox 100% ; me1 18:00 BP 127 / 98; Pulse 75; Resp 22; Pulse Ox 96% ; me1 19:00 BP 138 / 97; Pulse 76; Resp 22; Pulse Ox 97% ; me1 20:00 BP 141 / 79; Pulse 82; Resp 20; Pulse Ox 95% ; me1 16:08 Body Mass Index 25.07 (86.18 kg, 185.42 cm) iw MDM: 16:09 Medical Screening Exam initiated cp 18:15 Data reviewed: vital signs, nurses notes, lab test result(s), EKG, radiologic studies, cp plain films, and as a result, I will admit patient. 18:15 Differential diagnosis: Anemia Bronchitis CHF exacerbation, Chronic Obstructive cp Pulmonary Disease Myocardial Infarction pneumonia, Pneumothorax pulmonary edema, Pulmonary Embolism Sepsis. Consideration of Admission/Observation Patient was admitted/placed on observation. Management of patient was discussed with the following: Hospitalist: DR Friend will admit after discussion. Care significantly affected by the following chronic conditions: Hypertension, Congestive Heart Failure, Chronic Obstructive Pulmonary Disease. Counseling: I had a detailed discussion with the patient and/or guardian regarding the historical points, exam findings, and any diagnostic results supporting the discharge/admit diagnosis, lab results, radiology results, the need for further work-up and treatment in the hospital. Response to treatment: the patient's symptoms have mildly improved after treatment. 09/23 16:17 Order name: Basic Metabolic Panel; Complete Time: 17:47 cp 09/23 17:47 Interpretation: Normal except: CRE 2.36; GFR 28. cp 09/23 16:17 Order name: CBC with Diff; Complete Time: 17:47 cp 09/23 17:47 Interpretation: Normal except: RBC 4.10; HGB 11.7; HCT 34.8; PLT 144; RDW 15.4. cp 09/23 16:17 Order name: LFT's; Complete Time: 17:47 cp 09/23 16:17 Order name: Magnesium; Complete Time: 17:47 cp 09/23 16:17 Order name: NT PRO-BNP; Complete Time: 17:47 cp 09/23 17:48 Interpretation: Reviewed. cp 09/23 16:17 Order name: PT-INR; Complete Time: 17:47 cp 09/23 16:17 Order name: Troponin HS; Complete Time: 17:47 cp 09/23 16:17 Order name: COVID-19 Ag + Flu A+B Ag; Complete Time: 17:47 cp 09/23 18:52 Order name: CBC with Automated Diff EDMS 09/23 18:52 Order name: CBC with Automated Diff EDMS 09/23 18:52 Order name: Comprehensive Metabolic Panel EDMS 09/23 18:52 Order name: Comprehensive Metabolic Panel EDMS 09/23 18:52 Order name: Troponin High Sensitivity EDMS 09/23 18:52 Order name: Troponin High Sensitivity EDMS 09/23 18:52 Order name: Troponin High Sensitivity EDMS 09/23 18:52 Order name: Troponin High Sensitivity EDMS 09/24 06:57 Order name: Manual Differential EDMS 09/23 16:17 Order name: XRAY Chest (1 view); Complete Time: 18:09 cp 09/23 18:10 Interpretation: Report review. cp 09/23 16:17 Order name: Cardiac monitoring; Complete Time: 16:36 cp 09/23 16:17 Order name: EKG - Nurse/Tech; Complete Time: 16:36 cp 09/23 16:17 Order name: IV Saline Lock; Complete Time: 16:36 cp 09/23 16:17 Order name: Labs collected and sent; Complete Time: 16:36 cp 09/23 16:17 Order name: O2 Per Protocol; Complete Time: 16:36 cp 09/23 16:17 Order name: O2 Sat Monitoring; Complete Time: 16:36 cp EC:28 Rate is 70 beats/min. Rhythm is regular. AL interval is normal. QRS interval is cp prolonged at 132 msec. QT interval is normal. T waves are Inverted in lead aVL. Interpreted by me. Reviewed by me. Administered Medications: 16:47 Drug: MethylPrednisoLONE IVP 125 mg IVP once Route: IVP; Site: left antecubital; me1 18:18 Follow up: Response: No adverse reaction me1 16:47 Drug: DuoNeb Nebulize (2.5 mg - 0.5 mg) 3 ml Nebulizer once Route: Nebulizer; me1 18:18 Follow up: Response: No adverse reaction me1 18:17 CANCELLED (Physician Discretion): midodrine 10 mg PO once cp 18:17 Drug: Furosemide IVP 20 mg IVP once; give over 2 minutes Route: IVP; Site: left or1 antecubital; 18:32 Follow up: Response: No adverse reaction me1 18:17 Drug: Furosemide IVP 20 mg IVP once; give over 2 minutes Route: IVP; Site: left or1 antecubital; 18:32 Follow up: Response: No adverse reaction me1 Disposition Summary: 09/23/24 18:20 Hospitalization Ordered Notes: Hospitalization Status: Inpatient Admission cp Provider: Arturo Friend cp Condition: Stable cp Problem: new cp Symptoms: have improved cp Bed/Room Type: Standard cp Location: Telemetry/MedSurg (Inpatient)(09/24/24 12:58) em1 Room Assignment: [facility](09/24/24 12:58) em1 Diagnosis - Unspecified combined systolic (congestive) and diastolic (congestive) heart failure cp - Dyspnea, unspecified cp - Chest pain, unspecified cp - Acute pulmonary edema cp Forms: - Medication Reconciliation Form cp - SBAR form cp - Leadership Thank You Letter cp Signatures: Dispatcher [employer] EDAngeles Velazco RN RN iw Martinez, Eric em1 Austin Santiago PA PA cp Garcia, Cindy, RN RN Christina Darnell RN RN me1 Corrections: (The following items were deleted from the chart) 16:17 16:17 BASIC METABOLIC PANEL+C.LAB.BRZ ordered. EDMS EDMS 16:17 16:17 CBC+H.LAB.BRZ ordered. EDMS EDMS 16:17 16:17 HEPATIC FUNCTION+C.LAB.BRZ ordered. EDMS EDMS 16:17 16:17 MAGNESIUM+C.LAB.BRZ ordered. EDMS EDMS 16:17 16:17 PROBNP+C.LAB.BRZ ordered. EDMS EDMS 16:17 16:17 PROTIME (+INR)+COAG.LAB.BRZ ordered. EDMS EDMS 16:17 16:17 Troponin High Sensitivity+C.LAB.BRZ ordered. EDMS EDMS 16:18 16:18 Chest Single View+RAD.RAD.BRZ ordered. EDMS EDMS 16:18 16:18 COVID-19 Ag + Flu A+B Ag+I.LAB.BRZ ordered. EDMS EDMS 18:17 17:57 midodrine 10 mg PO once ordered. cp cp 20:18 18:20 Telemetry/MedSurg (Inpatient) cp cg 20:18 18:20 cp cg 09/24 12:58 09/23 20:18 [facility] ER HOLD cg em1 09/24 12:58 09/23 20:18 ERHOLD- cg em1 09/24 22:17 09/23 16:25 Respiratory: Positive for orthopnea, shortness of breath, on exertion. cp Negative for cough, wheezing, cp
--- NOTE | 2024-09-23 18:46 | P.HP ---
Certification for Inpatient Patient admitted to: Inpatient With expected LOS: >2 Midnights Practitioner: I am a practitioner with admitting privileges, knowledge of patient current condition, hospital course, and medical plan of care. Services: Services provided to patient in accordance with Admission requirements found in Title 42 Section 412.3 of the Code of Federal Regulations Patient History Date of Service: 09/24/24 Reason for admission: sob History of Present Illness: 74-year-old male with a past medical history of CAD s/p three-vessel CABG, 3 stents,CHF s/p defibrillator, COPD, hypercholesterolemia, hypertension presenting with shortness of for the last 4 days. Associated symptoms include orthopnea, chest tightness, cough. Symptoms are progressively getting worse and was brought to ER. Cough is productive with mucoid expectoration. Denies any fever or chills. No nausea vomiting or diarrhea. Denies any chest pain. Patient was assessed in the ER and is admitted for further management of CHF exacerbation. Allergies No Known Allergies Allergy (Verified 07/22/22 14:46) Home medications list reviewed: Yes Home Medications: Clopidogrel Bisulfate [Plavix*] 75 mg PO DAILY 05/26/19 Enalapril [Vasotec*] 10 mg PO DAILY 05/26/19 Nitroglycerin [Nitrostat*] 0.4 mg SL PRN PRN 05/26/19 Pantoprazole [Protonix Tab*] 40 mg PO BID 05/26/19 carvediloL [Coreg] 25 mg PO BID 05/26/19 cilostazoL [Cilostazol] 100 mg PO BID 05/26/19 Albuterol Sulfate [Proair Hfa] 2 puff IH TID PRN #1 hfa.aer.ad 05/27/19 Atorvastatin Calcium [Lipitor] 40 mg PO BEDTIME 07/22/22 Aspirin [Aspirin EC 81 MG] 81 mg PO DAILY 08/12/24 Docusate [Colace Cap*] 100 mg PO DAILY 08/12/24 Magnesium Oxide [Mag 0X*] 400 mg PO DAILY 08/12/24 Multivitamin/Iron/Folic Acid [Centrum Adults Tablet] 1 mg PO DAILY 08/12/24 Furosemide [Lasix*] 40 mg PO DAILY #30 tab 08/13/24 - Past Medical/Surgical History Diabetic: No Past Medical History: Reviewed- Non-Contributory -: Hypertension -: Hyperlipidemia -: CAD with prior CABG x4 vessel -: CHF -: Tobacco abuse -: COPD -: defibrillator-2013 Past Surgical History: Reviewed- Non-Contributory -: Cardiac stents x3 -: CABG x4 vessel -: Left knee surgery Psychosocial/ Personal History: Patient is single. He recently moved back to the area. - Family History Mother -: Hypertension, Other (see notes) Notes: alzheimers - Social History Smoking Status: Current some day smoker Alcohol use: No CD- Drugs: No Caffeine use: Yes Review of Systems 10-point ROS is otherwise unremarkable Physical Examination - Vital Signs Temperature: 98.4 F Blood Pressure: 132/68 Pulse: 78 Respirations: 18 Pulse Ox (%): 94 - Physical Exam General: Alert, Oriented x3, Mild distress HEENT: Atraumatic, Normocephalic Neck: Supple Respiratory: Normal air movement, Crackles/rales, Expiratory wheezes Cardiovascular: Regular rate/rhythm, Normal S1 S2 Capillary refill: <2 Seconds Gastrointestinal: Soft and benign, W/out hepatosplenomegaly Musculoskeletal: No clubbing, No swelling Integumentary: No rashes, No tenderness/swelling Neurological: Normal speech, Normal strength at 5/5 x4 extr, Cranial nerves 3-12 intact, Normal reflexes 2+, Normal affect Lymphatics: No axilla or inguinal lymphadenopathy - Studies Laboratory Data (last 24 hrs) 09/23/24 09/23/24 09/23/24 16:29 16:29 16:29 WBC 5.00 Hgb 11.7 L Hct 34.8 L Plt Count 144 L PT 15.1 H INR 1.34 Sodium 139 Potassium 4.0 BUN 18 Creatinine 2.36 H Glucose 105 Magnesium 1.9 Total Bilirubin 1.0 AST 26 ALT 30 Alkaline Phosphatase 136 H Assessment and Plan - Plan Acute on chronic CHF possibly systolic/diastolic Monitor closely on telemetry Started on aggressive diuresis X-ray findings consistent with CHF Oxygen supplementation Will try to wean down oxygen requirement Continue home medications Titrate as needed Will obtain an echocardiogram Cardiology consult Atrial fibrillation History of CHF status post AICD Coronary artery disease status post CABG and stents Continue home medications and titrate as needed Cardiology evaluation Monitor under telemetry Hypertension Antihypertensives titrated Continue home medications and titrate as needed Hyperlipidemia Continue statin ZAHIRA on CKD stage II Monitor renal parameters Electrolytes monitor and replace accordingly GI/DVT prophylaxis Advanced directive full code Discharge Plan: Home Plan to discharge in: 48 Hours - Advance Directives Does patient have a Living Will: No Does patient have a Durable POA for Healthcare: No - Code Status/Comfort Care Code Status: Full Code Time Spent Managing Pts Care (In Minutes): 48
[2024-09-23] MEDS ORDERED: ONDANSETRON 4 MG/2 ML VIAL IV PRN (18:47)
[2024-09-23] MEDS ORDERED: ACETAMINOPHEN 325 MG TABLET PO PRN (18:47)
[2024-09-24 04:45] LABS: Absolute Lymphocytes (CBC) 0.7 K/uL (0.7-4.9); Absolute Monocytes 0.1 K/uL (0.1-1.3); Absolute Neutrophil 5.1 K/uL (1.8-8.0); Basophils % 0.3 % (0-1.3); Eosinophils % 0.1 % (0-4.4); Hematocrit 33.3 % (39.6-49.0); Hemoglobin 11.3 g/dL (13.6-17.9); Lymphocytes % 11.3 % (15.3-44.8); MCH 28.7 pg (27.0-35.0); MCHC 33.8 g/dL (32.0-36.0); MCV 84.8 fL (80-100); MPV 9.4 fL (7.6-11.3); Monocytes % 0.9 % (3.3-12.3); Neutrophils % 87.4 % (41.7-73.7); Nucleated Red Blood Cells % 0.1 % (0-0); Platelets 148 thou/uL (152-406); RBC Red Blood Cell Count 3.93 M/uL (4.33-5.43); Red Cell Distribution Width 15.2 % (12.1-15.2)
[2024-09-24 04:55] LABS: Albumin 2.9 g/dL (3.4-5.0); Albumin/Globulin Ratio 0.8 (1.1-1.8); Bilirubin Total 0.9 mg/dL (0.2-1.0); Globulin 3.7 g/dL (2.3-3.5); Protein, Total 6.6 g/dL (6.4-8.2)
[2024-09-24] MEDS ORDERED: FUROSEMIDE 40 MG/4 ML VIAL ONE ×2 (06:18→09:55)
[2024-09-24] MEDS: FUROSEMIDE 40 MG/4 ML VIAL IV SCH (06:37)
[2024-09-24 06:56] LABS: Blood Morphology Comment NOT SEEN (NOT SEEN); Differential Total Cells Count 100; Lymphocytes 17 % (15-42); Platelet Estimate ADEQ; Segmented Neutrophils 83 % (40-80)
[2024-09-24] MEDS: ASPIRIN EC 81 MG TAB PO SCH (09:00)
[2024-09-24] MEDS: DOCUSATE NA 100 MG CAP PO SCH (09:00)
[2024-09-24] MEDS: CLOPIDOGREL 75 MG TABLET PO SCH (09:00)
[2024-09-24] MEDS: ENOXAPARIN 40 MG/0.4 ML SQ SCH (09:00)
[2024-09-24] MEDS: carvediloL 25 MG TAB PO SCH (09:00)
[2024-09-24] MEDS: cilostazoL 100 MG TAB PO SCH (09:00)
[2024-09-24] MEDS: PANTOPRAZOLE 40MG TABLET PO SCH (09:00)
[2024-09-24] MEDS: ENALAPRIL 10 MG TAB PO SCH (09:00)
[2024-09-24] MEDS ORDERED: PANTOPRAZOLE 40MG TABLET PO ONE (09:55)
[2024-09-24] MEDS ORDERED: ENALAPRIL 10 MG TAB ONE (09:55)
[2024-09-24] MEDS ORDERED: ASPIRIN EC 81 MG TAB PO ONE (09:55)
[2024-09-24] MEDS ORDERED: CLOPIDOGREL 75 MG TABLET ONE (09:55)
[2024-09-24] MEDS ORDERED: ENOXAPARIN 40 MG/0.4 ML SQ ONE (09:56)
[2024-09-24] MEDS ORDERED: DOCUSATE NA 100 MG CAP PO ONE (09:56)
[2024-09-24] MEDS: PNEUMOCOCCAL VACCINE 0.5 ML IMVAC ONE (12:00)
--- NOTE | 2024-09-24 16:05 | P.PN ---
Date of Service: 09/24/24 Subjective: States breathing is little bit better today No acute events overnight Edema improving ROS: 10 point ROS as noted above, otherwise negative Physical exam GEN: Alert, oriented, NAD HEENT: Normal conjunctiva, sclera anicteric CV: Regular rate and rhythm, no edema Pulm: Nonlabored respirations on room air ABD: Soft, nontender, nondistended MSK: No joint tenderness Integumentary: No rashes Neuro: Normal speech, normal affect Vitals reviewed Assessment Acute on chronic systolic congestive heart failure with pacemaker/defibrillator in place Atrial fibrillation on chronic anticoagulation History of CAD with previous CABG COPD Hypertension Hyperlipidemia CKD Plan Acute on chronic systolic congestive heart failure with pacemaker/defibrillator in place Continue IV diuresis Recently had his oral Lasix reduced from 40 mg to 20 mg daily Cardiology and nephrology consulted Symptoms improving Known EF of 10 to 15% per last echo Atrial fibrillation on chronic anticoagulation History of CAD with previous CABG Continue aspirin, Eliquis Continue other medications COPD Hypertension Hyperlipidemia Continue home medications, as needed nebulizer treatments CKD Nephrology consultation, monitor renal function closely while diuresing DVT PPX: Eliquis Code status: Full code Time Spent Managing Pts Care (In Minutes): 35
[2024-09-24] MEDS: ATORVASTATIN 40 MG TAB PO SCH (21:32)
[2024-09-24] MEDS: APIXABAN 5 MG TABLET PO SCH (21:33)
[2024-09-24 21:48] VITALS: BMI 24.9
[2024-09-24 22:44] LABS: Albumin 3.1 g/dL (3.4-5.0); Albumin/Globulin Ratio 0.9 (1.1-1.8); Anion Gap 11.6 mEq/L (5.0-15.0); Bilirubin Total 0.5 mg/dL (0.2-1.0); Globulin 3.6 g/dL (2.3-3.5); Magnesium 1.7 mg/dL (1.6-2.4); Phosphorus 3.2 mg/dL (2.5-4.9); Potassium 3.6 mEq/L (3.5-5.1); Protein, Total 6.7 g/dL (6.4-8.2)
[2024-09-24] MEDS: MAGNESIUM SULFATE 1 gm IVPB 1 GM/100 ML BAG IV ONE (23:11)
[2024-09-24] MEDS: POTASSIUM CL SA 10 MEQ TAB PO SCH (23:40)
[2024-09-25 07:33] LABS: Anion Gap 9.4 mEq/L (5.0-15.0); Potassium 3.4 mEq/L (3.5-5.1)
[2024-09-25 08:32] VITALS: O2SAT 96
[2024-09-25] MEDS ORDERED: BENZONATATE 100 MG CAP PO PRN (09:01)
[2024-09-25] MEDS: POTASSIUM CL SA 10 MEQ TAB PO ONE (09:05)
[2024-09-25] MEDS: POLYETHYL GLY 3350 17 GM/DOSE PO ONE (09:13)
--- NOTE | 2024-09-25 12:12 | P.PN ---
Date of Service: 09/25/24 Subjective: States breathing is little bit better today No acute events overnight Edema improving ROS: 10 point ROS as noted above, otherwise negative Physical exam GEN: Alert, oriented, NAD HEENT: Normal conjunctiva, sclera anicteric CV: Regular rate and rhythm, no edema Pulm: Nonlabored respirations on room air ABD: Soft, nontender, nondistended MSK: No joint tenderness Integumentary: No rashes Neuro: Normal speech, normal affect Vitals reviewed Assessment Acute on chronic systolic congestive heart failure with pacemaker/defibrillator in place Atrial fibrillation on chronic anticoagulation History of CAD with previous CABG COPD Hypertension Hyperlipidemia CKD Plan Acute on chronic systolic congestive heart failure with pacemaker/defibrillator in place Switch to PO lasix 40mg daily today Recently had his oral Lasix reduced from 40 mg to 20 mg daily Cardiology consulted Symptoms improving Known EF of 10 to 15% per last echo Possible DC tomorrow if doing well Atrial fibrillation on chronic anticoagulation History of CAD with previous CABG Continue aspirin, Eliquis Continue other medications COPD Hypertension Hyperlipidemia Continue home medications, as needed nebulizer treatments CKD monitor renal function closely while inpatient DVT PPX: Eliquis Code status: Full code Time Spent Managing Pts Care (In Minutes): 35
[2024-09-25 12:18] VITALS: BP 83/57; TEMP 98.3
--- NOTE | 2024-09-25 14:46 | P.DS ---
Admission Date: 09/23/24 Discharge Date: 09/25/24 Disposition: ROUTINE DISCHARGE Discharge Condition: GOOD Reason for Admission: sob Brief History of Present Illness: 74-year-old male with a past medical history of CAD s/p three-vessel CABG, 3 stents,CHF s/p defibrillator, COPD, hypercholesterolemia, hypertension presenting with shortness of for the last 4 days. Associated symptoms include orthopnea, chest tightness, cough. Symptoms are progressively getting worse and was brought to ER. Cough is productive with mucoid expectoration. Denies any fever or chills. No nausea vomiting or diarrhea. Denies any chest pain. Patient was assessed in the ER and is admitted for further management of CHF exacerbation. Hospital Course: Assessment Acute on chronic systolic congestive heart failure with pacemaker/defibrillator in place Atrial fibrillation on chronic anticoagulation History of CAD with previous CABG COPD Hypertension Hyperlipidemia CKD Patient was admitted to the hospital for increasing dyspnea over the course of the last 4 days prior to admission. He reports that in the past 2 weeks his Lasix had been reduced from 40 mg daily to 20 mg daily. He was found to have an exacerbation of his systolic CHF. He has a known ejection fraction of around 10 to 15% as well as a history of atrial fibrillation. He was diuresed with IV Lasix and has had improvement in his symptoms, his renal function has remained stable while on IV Lasix 40 mg twice daily. At discharge we recommend increasing dose of Lasix from 20 mg daily back up to 40 mg daily and following up with both cardiology and nephrology outpatient. For his atrial fibrillation patient should be on Eliquis 5 mg daily as well as aspirin 81 mg daily, he should no longer be on clopidogrel/Plavix as recommended by cardiology during previous admission. Other home medications should remain the same. Vital Signs/Physical Exam: Temp Pulse Resp BP Pulse Ox 98.3 F 66 15 83/57 L 96 09/25/24 12:00 09/25/24 12:00 09/25/24 12:00 09/25/24 12:09/25/24 12:00 General: Alert, In no apparent distress, Oriented x3 HEENT: Atraumatic, PERRLA Neck: Supple, JVD not distended Respiratory: Clear to auscultation bilaterally, Normal air movement Cardiovascular: Regular rate/rhythm, Normal S1 S2 Gastrointestinal: Normal bowel sounds, No tenderness Musculoskeletal: No tenderness Integumentary: No rashes Neurological: Normal speech, Normal tone Laboratory Data at Discharge: WBC 5.90 thou/uL (4.3-10.9) 09/24/24 04:25 Hgb 11.3 g/dL (13.6-17.9) L 09/24/24 04:25 Hct 33.3 % (39.6-49.0) L 09/24/24 04:25 Plt Count 148 thou/uL (152-406) L 09/24/24 04:25 PT 15.1 SECONDS (10-13.0) H 09/23/24 16:29 INR 1.34 09/23/24 16:29 Sodium 138 mEq/L (136-145) 09/25/24 06:26 Potassium 3.4 mEq/L (3.5-5.1) L 09/25/24 06:26 BUN 27 mg/dL (7-18) H 09/25/24 06:26 Creatinine 2.26 mg/dL (0.70-1.30) H 09/25/24 06:26 Glucose 108 mg/dL (74-106) H 09/25/24 06:26 Phosphorus 3.2 mg/dL (2.5-4.9) 09/24/24 22:10 Magnesium 2.0 mg/dL (1.6-2.4) 09/25/24 06:26 Total Bilirubin 0.5 mg/dL (0.2-1.0) 09/24/24 22:10 AST 31 U/L (15-37) 09/24/24 22:10 ALT 29 U/L (16-61) 09/24/24 22:10 Alkaline Phosphatase 123 U/L (45-117) H 09/24/24 22:10 Home Medications: Enalapril [Vasotec*] 5 mg PO DAILY 05/26/19 Pantoprazole [Protonix Tab*] 40 mg PO BID 05/26/19 carvediloL [Coreg] 25 mg PO BID 05/26/19 cilostazoL [Cilostazol] 100 mg PO BID 05/26/19 Albuterol Sulfate [Proair Hfa] 2 puff IH TID PRN #1 hfa.aer.ad 05/27/19 Atorvastatin Calcium [Lipitor] 40 mg PO BEDTIME 07/22/22 Aspirin [Aspirin EC 81 MG] 81 mg PO DAILY 08/12/24 Docusate [Colace Cap*] 250 mg PO DAILY 08/12/24 Magnesium Oxide [Mag 0X*] 400 mg PO DAILY 08/12/24 Multivitamin/Iron/Folic Acid [Centrum Adults Tablet] 1 tab PO DAILY 08/12/24 Nitroglycerin 0.4 mg SL PRN 09/24/24 Apixaban [Eliquis] 5 mg PO BID 09/25/24 Apixaban [Eliquis] 5 mg PO BID #60 tab 09/25/24 Furosemide [Lasix*] 40 mg PO DAILY #30 tab 09/25/24 New Medications: Apixaban [Eliquis] 5 mg PO BID #60 tab Furosemide [Lasix*] 40 mg PO DAILY #30 tab Physician Discharge Instructions: Patient was admitted to the hospital for increasing dyspnea over the course of the last 4 days prior to admission. He reports that in the past 2 weeks his Lasix had been reduced from 40 mg daily to 20 mg daily. He was found to have an exacerbation of his systolic CHF. He has a known ejection fraction of around 10 to 15% as well as a history of atrial fibrillation. He was diuresed with IV Lasix and has had improvement in his symptoms, his renal function has remained stable while on IV Lasix 40 mg twice daily. At discharge we recommend increasing dose of Lasix from 20 mg daily back up to 40 mg daily and following up with both cardiology and nephrology outpatient. For his atrial fibrillation patient should be on Eliquis 5 mg daily as well as aspirin 81 mg daily, he should no longer be on clopidogrel/Plavix as recommended by cardiology during previous admission. Other home medications should remain the same. Diet: AHA Activity: Ad rommel Followup: Tanner Steven DO [ACTIVE - CAN ADMIT] - 1 Week NONE,NONE [Primary Care Provider] - Jay Cerna MD [ACTIVE - CAN ADMIT] - 1 Week Time spent managing pt's care (in minutes): 46
--- NOTE | 2024-09-25 23:14 | CON ---
Date of Consultation: 09/25/2024 Reason For Consultation: Shortness of breath. History Of Present Illness: A 74-year-old male with history of coronary artery disease, status post multivessel CABG many years back and congestive heart failure with low ejection fraction, status post defibrillator implantation. He was following in with a doctor in [place] and has hypertension as wel l as dyslipidemia, COPD. Presented with shortness of breath, orthopnea, lower extremity edema and dr y cough. Denies having any chest pain. On diuresis with Lasix feels much better and he is asymptoma tic this morning. Past Medical History: As outlined above in the HPI. Medications: Reviewed. Refer reconciliation sheet for detailed list. Allergies: NO KNOWN DRUG ALLERGIES. Past Surgical History: CABG, defibrillator implantation, left knee surgery. Family History: No premature coronary artery disease or cancer. Social History: He is an active smoker. Does not drink or use any drugs. Review of Systems: All systems reviewed and are negative except as mentioned in the HPI. Physical Examination: Vital Signs: Reviewed. Head and Neck: Pupils are equal, reactive to light. Intact eye movements. No JVD. No cervical lym phadenopathy. Neck is supple. Thyroid is not enlarged. Lungs: Clear to auscultation bilaterally. No rhonchi, wheezing, or crackles. No accessory muscle u se. Heart: Regular rate and rhythm. No extra sounds. Abdomen: Soft, nontender. Bowel sounds positive. No organomegaly. No masses or hernia. No rigidi ty or rebound. Extremities: No clubbing or cyanosis. Intact pulses. Skin: No rash. No nodules. Neurologic: Alert, awake, oriented x3. No acute focal deficits appreciated. Investigations: Troponins are negative. BUN 27, creatinine 2.26. Hemoglobin is 11.3. Assessment/recommendation: 1. Acute on chronic congestive heart failure exacerbation, likely systolic as he has a defibrillator in place and responded very well to Lasix and Lasix was switched to oral appropriately. From our per spective, the patient appears to be euvolemic, can be released and followed up as an outpatient. 2. Coronary artery disease. No chest pain. Cardiac enzymes are negative. Continue home medications . 3. Dyslipidemia. Recommend Lipitor 40 mg q.h.s. 4. Chronic kidney failure, likely due to cardiorenal syndrome and this is stable. Recommend outpatie nt nephrology followup. Cardiology will sign off and recommend outpatient workup including ischemia evaluation with a stress test and an echo which can be done as an outpatient. Thank you for the consult. HAWK Voice ID: [id number] Report ID: [id number]
[2024-09-26] MEDS ORDERED: FUROSEMIDE 40 MG TABLET PO SCH (09:00)
--- NOTE | 2024-09-29 13:00 | EKG ---
Test Date: 2024-09-23 Test Time: 16:22:36 It Manager: DAJUAN MEASUREMENT RESULTS: Intervals: Rate: 70 CO: 132 QRSD: 132 QT: 472 QTc: 509 [place]: P: CO: 132 QRS: -50 T: 121 INTERPRETIVE STATEMENTS: Sinus rhythm with frequent premature ventricular complexes Left axis deviation Left bundle branch block Abnormal ECG Compared to ECG 08/11/2024 16:53:19 Left-axis deviation now present Left bundle-branch block now present Atrial fibrillation no longer present Electronically Signed On 09-29-24 12:44:35 CDT by Km Spivey
== END 2024-09-25 15:07 | disposition home or self-care (01) | DRG 291 ==
LOC: ER 16:04 → ERHOLD 18:47 → 2ND 09-24 14:20
PROVIDERS: ADMIT Family Medicine; ATTEND Internal Medicine
DX: I13.0 Hypertensive heart and chronic kidney disease with heart failure and stage 1 through stage 4 chronic kidney disease, or unspecified chronic kidney disease (principal); I50.43 Acute on chronic combined systolic (congestive) and diastolic (congestive) heart failure; N17.9 Acute kidney failure, unspecified; N18.2 Chronic kidney disease, stage 2 (mild); I25.10 Atherosclerotic heart disease of native coronary artery without angina pectoris; I48.91 Unspecified atrial fibrillation; J44.9 Chronic obstructive pulmonary disease, unspecified; R05.9 Cough, unspecified; E78.5 Hyperlipidemia, unspecified; E78.00 Pure hypercholesterolemia, unspecified; Z72.0 Tobacco use; I25.2 Old myocardial infarction; Z95.810 Presence of automatic (implantable) cardiac defibrillator; Z95.1 Presence of aortocoronary bypass graft; Z79.01 Long term (current) use of anticoagulants; Z79.82 Long term (current) use of aspirin; Z79.899 Other long term (current) drug therapy; Z11.52 Encounter for screening for COVID-19; Z82.49 Family history of ischemic heart disease and other diseases of the circulatory system
CPT/HCPCS: 36415; 71045; 80048; 80053; 80076; 83735; 83880; 84100; 84484; 85025; 85610; 87428; 93005; 94760; 96374; 96375; 99285; J1650; J1938; J2919; J3475; J7613; J7644